=== PATIENT | male | born 1960 | race Caucasian/White ===

== ENCOUNTER 2018-04-12 05:46 | Day surgery (SDC) | payer BC, SELFPAY ==
--- NOTE | 2018-04-11 | COLBX_PTH ---
PATIENT: JAQUELINE PEREYRA LOC: EN U#:[id number] AGE/SX: 57/M ROOM: RE04/12/[address]: Dr. Sahil Douglass MD : 1960 BED: DIS: 04/12/2018 SPEC #: [id number] RECD: 04/12/18 07:56 STATUS: OZZIE SHERLEY #: [id number] MONIK: 04/11/18 00:[address]: Sahil Douglass DEPT: SURGICAL PATHOLOGY RECD BY: Bertin Gonzales ENTERED: 04/12/18 08:16 SP TYPE: COLON BX SYD DR: Gab Corbett, CIGARETTE VENDOR-C Tissues: A - Sigmoid colon biopsy B - Ascending colon C - COLON BIOPSY D - Sigmoid colon biopsy Procedures: Surgery Specimen Level IV HEADER OPERATION: Colonoscopy with polypectomy PRE-OP DIAGNOSIS: History of polyps TISSUE SUBMITTED: A ? Polyps sigmoid colon, B ? Ascending colon polyp, C ? Hepatic flexure polyp, D ? Sigmoid polyp MICROSCOPIC DIAGNOSIS A. Polyp, sigmoid colon, polypectomy: Tubular adenoma. B. Ascending colon polyp, polypectomy: Fragments of fecal material. See comment. C. Hepatic flexure polyp, polypectomy: Fragments of tubular adenoma. Fragments of fecal material. D. Sigmoid colon polyp, polypectomy: Tubular adenoma. SJ:lorraine 04/13/18 COMMENT B. Colonic mucosal tissue is not identified in the submitted specimen. MICROSCOPIC DESCRIPTION Slides are reviewed. GROSS DESCRIPTION A - Received in fixative is one container labeled with the patient's name and designated sigmoid colon polyps. The specimen consists of multiple irregular fragments of light castillo soft tissue that in aggregate measure 0.5 x 0.3 x 0.1 cm. The specimen is totally submitted in one cassette. B - Received in fixative is one container labeled with the patient's name and designated ascending colon polyp. The specimen consists of multiple irregular fragments of castillo soft tissue mixed with fecal material that in aggregate measure 2.5 x 1 x 0.1 cm. The specimen is totally submitted in one cassette. The specimen predominantly consists of fecal material. C - Received in fixative is one container labeled with the patient's name and designated hepatic flexure polyp. The specimen consists of multiple irregular fragments of castillo soft tissue mixed with fecal material that in aggregate measure 2 x 1 x 0.1 cm. The specimen is totally submitted in one cassette. D - Received in fixative is one container labeled with the patient's name and designated sigmoid polyp. The specimen consists of one irregular fragment of light castillo soft tissue that measures 0.3 x 0.3 x 0.1 cm. The specimen is totally submitted in one cassette. / SJ:rg 04/12/18 TC:5 CPT: 46439 x4
[2018-04-12 06:07] VITALS: BP 111/81; PULSE 90; RESP 16; O2SAT 95
--- NOTE | 2018-04-12 07:01 | PCM.OPRPT ---
Problem List (1) Personal history of colonic polyps Status: Acute Report of Operation Date of Procedure: 04/12/18 Pre-Operative Diagnosis: Personal history of colon polyps Post-Operative Diagnosis: Pancolonic diverticulosis. Sessile polyp of the ascending colon. Sessile polyp of the hepatic flexure. Sessile polyps of the mid and distal sigmoid ?3 Surgery/Procedure Performed:: Colonoscopy with cold forcep biopsy. Colonoscopy with hot snare polypectomy. Colonoscopy with cold snare polypectomy. Description of Surgical Findings:: Timeout and informed consent was obtained. 57-year-old gentleman was taken to the endoscopy suite. He was placed in a left lateral decubitus position. Throughout the procedure total 100 g term on 3.5 mg of Versed were given as intravenous sedation. Digital rectal exam performed. Normal anal tone. No mass lesions. 1+ smooth prostate. The scope was advanced into the rectum and then advanced in the sigmoid and what was felt to be the mid sigmoid 1 6 mm polyp 1 finally the polyp was encountered. Photographs were obtained. Hot snare cautery was used to resect and retrieved. There was extensive diverticulosis. The scope was advanced through the sigmoid transverse colon to the cecum. Bowel prep was fair. There still liquid stool with some chunks throughout the colon. The cecum ileocecal valve however was nicely achieved. The scope was withdrawn and there was a very sessile 6 Quinn polyp of the ascending colon. Photographs were obtained a cold snare was used to resect and retrieved. Because of the thinness I placed a hemostatic clip at this location. The scope was further withdrawn and again at the hepatic flexure was felt to be a 5 mm polyp. I used a hot snare to resect this then cold forceps to assure sampling of the area. Hemostasis was intact. There was pancolonic diverticulosis. The scope was advanced to the transverse colon and descending colon without additional finding. The scope was withdrawn to the sigmoid were an additional third polyp was identified down the more distal sigmoid. This also was resected and retrieved with hot snare cautery. Hemostasis was intact throughout. Bowel mucosa appeared to be intact. The scope was retroflexed within the rectum anorectal verge inspected this was not remarkable. Excess fluid and air was aspirated free the procedure was completed with the patient tolerating it well. Impression Pancolonic diverticulosis with concentrated diverticular disease of the sigmoid and descending colon Sessile polyp of the ascending colon and hepatic flexure and mid sigmoid x 2 and distal sigmoid ?1 The patient will be notified of pathology results as they become available. Based upon pathology will recommend follow-up colonoscopy at 1 year due to the multitude of polyps. This colonoscopy was October 10, 2014. The patient also additionally scheduled for future ventral incisional hernia repair. Medications were given at 0630. Scope was inserted 0633. The cecum was reached at 0639. The procedure was completed at 0656. Cc: Dr. Caesar Alicea and jossie Douglass M.D., F.A.C.S. Type of Anesthesia:: IV Sedation
[2018-04-12 07:05] VITALS: BP 109/80; BP 111/81; PULSE 89; RESP 16; TEMP 36.6; O2SAT 93
[2018-04-12 07:10] VITALS: BP 111/81; BP 115/90; PULSE 81; RESP 16; O2SAT 93
[2018-04-12 07:15] VITALS: BP 111/81; BP 113/86; PULSE 82; RESP 16; O2SAT 92
[2018-04-12 07:20] VITALS: BP 109/85; BP 111/81; PULSE 85; RESP 16; TEMP 36.6; O2SAT 94
[2018-04-12 08:08] VITALS: BP 111/81
== END 2018-04-12 08:10 | disposition home or self-care (01) ==
LOC: EN 05:47 → AC 05:49
PROVIDERS: Family Provider Nurse Practitioner Family; PCP Nurse Practitioner Family; Visit Provider Surgery
PROC: 0DJD8ZZ Inspection of Lower Intestinal Tract, Via Natural or Artificial Opening Endoscopic (ICD-10-PCS; CPT 45378; principal; 2018-04-12 06:25)
DX: D12.3 Benign neoplasm of transverse colon (principal); D12.5 Benign neoplasm of sigmoid colon; K63.5 Polyp of colon; K57.30 Diverticulosis of large intestine without perforation or abscess without bleeding; Z86.010 Personal history of colon polyps; K43.2 Incisional hernia without obstruction or gangrene; E03.9 Hypothyroidism, unspecified; K21.9 Gastro-esophageal reflux disease without esophagitis; E78.5 Hyperlipidemia, unspecified; C62.90 Malignant neoplasm of unspecified testis, unspecified whether descended or undescended; C62.12 Malignant neoplasm of descended left testis; Z86.711 Personal history of pulmonary embolism; Z85.820 Personal history of malignant melanoma of skin; Z87.891 Personal history of nicotine dependence; Z79.899 Other long term (current) drug therapy
CPT/HCPCS: 45380; 45385; 88305; J7120; A4216

== ENCOUNTER 2018-04-20 12:33 | Inpatient (IN) | payer BC, SELFPAY ==
[2018-04-20] VITALS (11 sets, daily range): BP systolic 125–147; BP diastolic 83–98; PULSE 61–89; RESP 12–18; TEMP 36.2–37.1; O2SAT 92–100; BMI 33.7
[2018-04-20 08:33] LABS: International Normalized Ratio 0.9; Prothrombin Time (Protime)PT. 12.5 SECONDS (11.7-14.9)
[2018-04-20 08:34] LABS: Partial Thromboplast Time 35.4 Seconds (24.1-36.2)
--- NOTE | 2018-04-20 09:35 | HERN_PTH ---
PATIENT: JAQUELINE PEREYRA LOC: MS3 U#:[id number] AGE/SX: 57/M ROOM: MS311 RE04/20/[address]: Dr. Sahil Douglass MD : 1960 BED: 1 DIS: 04/24/2018 SPEC #: [id number] RECD: 04/20/18 14:17 STATUS: OZZIE SHERLEY #: [id number] MONIK: 04/20/18 09:[address]: Sahil Douglass DEPT: SURGICAL PATHOLOGY RECD BY: Gab Mendiola ENTERED: 04/20/18 14:51 SP TYPE: Hernia OTHR DR: Gab Corbett, REAL ESTATE LEGAL ASSISTANT-C Tissues: HERNIA Procedures: Surgery Specimen Level II HEADER OPERATION: Open and laparoscopic ventral incisional hernia repair PRE-OP DIAGNOSIS: Incisional hernia without obstruction or gangrene TISSUE SUBMITTED: Hernia sac MICROSCOPIC DIAGNOSIS Hernia sac, herniorrhaphy: Fibrosis and focal chronic inflammation. AM:lorraine 04/28/18 MICROSCOPIC DESCRIPTION Slides are reviewed. GROSS DESCRIPTION Received in fixative is one container labeled with the patient's name and designated hernia sac. The specimen consists of three irregular fragments of reddish-castillo soft tissue that in aggregate measure 3 x 3 x 1 cm. Serial sections do not reveal mass lesions. Defensive Driving Instructor sections are submitted in one cassette. / AM:lorraine 04/20/18 TC:5 CPT: 02333
[2018-04-20] MEDS: Cefazolin 2 GM in 0.9% Normal Saline 100 ML IV (09:55)
--- NOTE | 2018-04-20 10:08 | PCM.DC.GS ---
Discharge Diet: Light diet - advance as tolerated - if you have questions about your diet instructions, please talk to you doctor. Discharge Activity: May Not Drive - for 1 week or while taking narcotic pain medicine. May shower in (days): 1 Lifting Restrictions: 10 pounds Call your doctor if your incision/area has: Continuous Slow Oozing, Sudden Increased Bleeding, Increased Pain/ Swelling, Increased Redness, Foul Smelling Discharge Call your doctor if you observe: Fever of 101 or Higher Suture Line Care: Avoid Pulling/Pushing, Avoid Pinching/Bending Additional Dressing/Incision Instructions:: Change or remove dressing in 4 days. Leave steri-strips in place for 1 week. Allergies/Adverse Reactions: Allergies hydrocodone [From Vicodin] Adverse Reaction (Verified 04/13/18 09:30) Nausea/Vom/Diarrhea TAPE Adverse Reaction (Uncoded 04/13/18 09:30) Unknown Medications to take at Discharge Ascorbic Acid [Vitamin C] 1,000 mg PO DAILY 11/03/16 Atorvastatin Calcium [Lipitor] 40 mg PO QHS 11/03/16 Fenofibrate [Lofibra] 160 mg PO DAILY 11/03/16 Fexofenadine/Pseudoephedrine [Trixie-D 12 Hour Tablet] 1 ea PO DAILY 11/03/16 Levothyroxine [Synthroid] 25 mcg PO DAILY 11/03/16 [place]-3 Fatty Acids [Fish Oil] 1,200 mg PO BID 11/03/16 Omeprazole [Prilosec] 40 mg PO DAILY 11/03/16 Multivitamin [Multiple Vitamins] 1 ea PO DAILY 11/22/16 Acetaminophen [Tylenol Tablet] 650 mg PO Q6H PRN PRN tab 04/26/17 fluticasone 50 mcg/actuation nasal spray,suspension 2 spray INTRANASAL QDAY 03/23/18 Primary Care Physician: Gab Corbett, JEN-C [Primary Care Provider] - Please Follow Up With: Sahil Douglass MD - [phone] When: Call to make an appointment to be seen in about 10 days.
[2018-04-20] MEDS: Bupivacaine Mpf 0.5% 30 ML VIAL (10:17)
[2018-04-20] MEDS: BUPIVACAINE LIPOSOME/PF 20 ML VIAL OPERA.SITE (12:21)
--- NOTE | 2018-04-20 12:33 | DT_ITS ---
This patient was seen during an EMR downtime April 23, 2018 - April 30, 2018. This patient may have a combination of paper and electronic documentation or all paper documentation. All documentation is viewable within the e-chart portion of [facility] for each patient visit.
--- NOTE | 2018-04-20 12:39 | PCM.OPRPT ---
Problem List (1) Ventral incisional hernia Status: Acute Report of Operation Date of Procedure: 04/20/18 Pre-Operative Diagnosis: Complex multi-defect ventral incisional hernia Post-Operative Diagnosis: Same with extensive intra-abdominal and small bowel adhesions Surgery/Procedure Performed:: Hybrid open and laparoscopic ventral incisional herniorrhaphy with extensive lysis of small bowel adhesions Description of Surgical Findings:: Out and informed consent was obtained. 57-year-old gentleman was taken out from.. He underwent general endotracheal intubation anesthesia. The abdomen was sterilely prepped draped. Ioban drape was used to help solidify dressings. He received 2 g of Ancef intravenously. 0.5% Marcaine was used as local anesthetic. Throughout the procedure total 30 cc was used. Later a 20 cc vial of Exparel was diluted to 100 cc utilizing saline and this was utilized to perform a tap block for the patient laparoscopically. A vertical incision was made at the site of the palpable defect superior the umbilicus sharp dissection carried down to Morse tissue the hernial defect identified it was incised vertically there became evidence that the entire midline fascia appeared to be disrupted with multiple defects unfortunately there were dense adhesions at this particular location of omentum but then extraordinarily tight adhesions of small bowel from the mid abdomen inferiorly. I was able to bluntly dissect the omentum free get to the left upper quadrant and then by palpation placed a 5 mm trocar. I placed in his son at the supraumbilical area. I then insufflated the abdomen identifying the extensive intra-abdominal adhesions. I was able to place a foraminal port in the left midabdomen and then over 1 hour of laparoscopic lysis of adhesions was pursued. The omentum had to be dissected free from the anterior abdominal wall in the mid abdomen and superiorly. I did this all the way up to the superior aspect of the incision and slightly mobilized the also form ligament. Unfortunately from the mid abdomen distally there were absolutely dense flat lesions of tediously and carefully using sharp laparoscopic dissection I freed this bowel. There was one area that looked like it might of been close I marked it with a Hemoclip when I was done lysing I then lengthen the midline incision just enough to examine that bowel externally and I further did some lysis of adhesions and an open technique freeing the small bowel to fully inspect that there was absolutely no evidence of any bowel injury. The bowel was placed back within the abdomen. I doubt successfully lysed all of the adhesions off the anterior abdominal wall. The midline fascia then was approximated with a running 0 PDS in a Teague catheter was replaced. I selected a ventral light ST mesh reference #[id number]. Expiry date 04/16/2018. Lot number [id number]. Today is April 20, 2018. We had the mesh open I was aware of the expiry date and I felt that 3 days over the expiry date did not warrant utilization of a completely separate piece of mesh. I used 2-0 Prolene at 4 corner sutures. The mesh was placed in through the assigned. It was unfurled. Using 11 blade and stab incision was used a grainy needle to ku through the mesh up to the abdominal wall very nice positioning was achieved. I secured the 2-0 Prolene sutures. I then utilized to secure strap devices one was a lot number [id number] with an expiry date of 10/09/2019 the other was lot number [id number] with the same expiry date. Excellent securement positioning of the mesh was achieved. Very pleased with that positioning. I then used saline to lubricate the mesh to activate the nonadherent surface. Then under labs Visualization I utilized the diluted Exparel and performed a tap block on her left scopic visualization and injected local essentially circumferentially around the entire portion of mesh. Finally the bowel was again inspected was noted to be hemostatic the greater omentum was placed as far down the abdomen is possible to cover as much of the bowel is possible. Trochars removed under visualization. The abdomen was allowed to deflate of CO2. Skin edges approximated were indicated with interrupted or running septic or 4-0 Monocryl. Steri-Strips Telfa and OpSite dressings were applied. Sponge and instrument and needle counts were reported to the surgeon to be correct. Blood loss was quite minimal. There were no apparent complications. He tolerated the procedure well. Specimens fragments of hernia sac. Drains none blood loss minimal Sahil Douglass M.D., F.A.C.S. Type of Anesthesia:: General Anesthesiologist: Bubba Allison
[2018-04-20] MEDS: Lactated Ringers 1,000 ML 75 ML IV (15:28)
[2018-04-20] MEDS: Morphine 2 MG/ML Syringe IV ×4 (15:28→22:10)
--- NOTE | 2018-04-20 16:54 | PCM.PN.BLA ---
Progress Note Sore but otherwise well Has not voided VS stable R.Cebul
[2018-04-20] MEDS: Ibuprofen 600 MG Tablet PO (17:21)
[2018-04-20] MEDS: Atorvastatin Calcium 40 MG Tablet PO (22:10)
[2018-04-21 01:32] VITALS: BP 137/91; PULSE 89; RESP 18; TEMP 36.7; O2SAT 97
[2018-04-21] MEDS: Morphine 2 MG/ML Syringe IV ×2 (02:18→08:33)
[2018-04-21] MEDS: Lactated Ringers 1,000 ML 75 ML IV (04:38)
[2018-04-21] MEDS: Ibuprofen 600 MG Tablet PO ×3 (04:40→18:29)
[2018-04-21] MEDS: Levothyroxine 25 MCG TABLET PO (05:59)
[2018-04-21] MEDS: Enoxaparin 40 MG/0.4 ML Syringe SC (05:59)
--- NOTE | 2018-04-21 06:09 | PCM.PN.SRG ---
Patient Problems: Active and Suspected Problems (Last Reviewed 03/24/18 @ 07:13 by Dolores Amaya) Ventral incisional hernia (Acute) Subjective: Pt better than last night. Still quite sore. No flatus. Minimal ambulation last night - Physical Exam General: Alert, Oriented x3, Cooperative, No apparent distress Lungs: Clear to auscultation Abdomen: Bowel Sounds Present, Soft, Distended Vital Signs Temp Pulse Resp BP Pulse Ox 98.1 F 89 18 137/91 H 97 04/21/18 01:32 04/21/18 01:32 04/21/18 01:32 04/21/18 01:32 04/21/18 01:32 Oxygen Flow Rate (L/min) 1 Oxygen Delivery Method Nasal Cannula Weight: 235 lb 7.259 oz Body Mass Index (BMI) 33.7 Intake and Output for Last 24 Hours 04/19/18 04/20/18 04/21/18 23:59 23:59 23:59 Intake Total 2559 / 2559 1909 / 1909 Output Total 2049 / 2049 Balance 2559 / 2559 -140 / -140 Laboratory Tests Past 24 Hrs 04/20/18 08:10 PT 12.5 INR 0.9 APTT 35.4 Medical Necessity - Tobacco Use Smoking Status: Former smoker Assessment/Plan All Active Problems (Last Reviewed 03/24/18 @ 07:13 by Dolores Amaya) Personal history of colonic polyps (Acute) Ventral incisional hernia (Acute) Personal history of pulmonary embolism (Acute) Hypothyroid (Acute) GERD (gastroesophageal reflux disease) (Acute) Hyperlipidemia (Acute) History of melanoma (Acute) Seminoma (Acute) Pulmonary embolism (Acute) Pt with lovenox and SCDs but with H/o DVT and PE he needs to mobilize matthias and he is encouraged to do so. Intolerant to norco Will try tramadol Advance diet as tolerated Doubt he will meet criteria for discharge today
[2018-04-21] MEDS: 0.9% NaCl Peripheral Flush Adult/Peds IV (06:32)
[2018-04-21 06:47] LABS: Absolute Lymphocyte Count 0.67 X10^3/ul (0.83-4.51); Absolute Neutrophil Count 6.8 X10^3/uL (2.0-7.7); Basophil# 0.01 X10^3/uL; Basophil% 0.1 % (0-1); Eosinophil# 0.12 X10^3/uL; Eosinophils% 1.5 % (0-5); Hematocrit 39.9 % (40-54); Hemoglobin 12.8 g/dl (13.0-16.5); Lymphocyte # 0.67 X10^3/ul (4.0); Lymphocyte % 8.3 % (19-41); Mean Corp Hgb Conc 32.1 g/gl (32-36); Mean Corpuscular Hgb 29.8 pg (27.0-32.0); Mean Platelet Vol. 10.8 fl (6.2-12.0); Monocyte# 0.53 X10^3/uL; Monocyte% 6.5 % (0-10); Neutrophil # 6.78 X10^3/uL (2.7-7.7); Neutrophil % 83.5 % (47-70); Platelet Count 156 K/mm3 (150-450); RBC Distribution Width CV 13.2 % (11.6-14.6); RBC Distribution Width SD 44.1 fl (35.1-43.9); Red Blood Count 4.29 M/mm3 (4.6-6.2); White Blood Count 8.1 K/mm3 (4.4-11.0)
[2018-04-21 06:55] LABS: POSITIVE COUNT NO; POSITIVE DIFFERENTIAL NO; POSITIVE MORPHOLOGY NO
[2018-04-21 08:14] VITALS: BP 117/79; PULSE 92; RESP 16; TEMP 37.1; O2SAT 95
[2018-04-21] MEDS: Fenofibrate 145 MG Tablet PO (08:34)
[2018-04-21] MEDS: Fluticasone 0.05% 1 SPRAY NASAL.SRY 2 SPRAY NASAL (10:37)
[2018-04-21] MEDS: Loratadine 10 MG Tablet PO (10:38)
[2018-04-21] MEDS: Pantoprazole Sodium 40 MG Tablet PO (10:38)
--- NOTE | 2018-04-21 11:19 | CASEMGMT ---
Face to Face with patient for initial transition planning/care coordination assessment. LUCIO HARRIS introduced self and role at [facility], pt voices understanding and consents to assessment at this time. Pt is sitting up in bed in no distress at this time. Pt is A/O x4 at this time and answers all questions appropriately at this time. Care providers, pharmacy, and demographics verified. See attached link. Pt voices no further concerns/needs at this time. Advised pt to ask for CM if any further questions/concerns/needs arise, voices understanding. PLAN: [place] LUCIO HARRIS
[2018-04-21 13:44] VITALS: BP 118/86; PULSE 101; RESP 18; TEMP 36.9; O2SAT 94
[2018-04-21] MEDS: Acetaminophen 325 MG Tablet 650 MG PO ×2 (13:57→20:10)
--- NOTE | 2018-04-21 14:48 | NURSING ---
PT HAS BEEN AMBULATING APPROX EVERY HOUR IN HALLS WITH SPOUSE. PT UTILIZING I.S. INSTRUCTED.
[2018-04-21] MEDS: Polyethylene Glycol 3350 17 GM PACKET PO (17:26)
[2018-04-21] MEDS: traMADol 50 MG Tablet 100 MG PO (18:29)
[2018-04-21 20:15] VITALS: BP 150/91; PULSE 96; RESP 16; TEMP 37.2; O2SAT 95
[2018-04-21] MEDS: Atorvastatin Calcium 40 MG Tablet PO (21:58)
[2018-04-22] VITALS (8 sets, daily range): BP systolic 116–147; BP diastolic 77–102; PULSE 85–106; RESP 16–18; TEMP 36.4–37.1; O2SAT 88–95
[2018-04-22] MEDS: traMADol 50 MG Tablet 100 MG PO ×3 (00:28→21:18)
[2018-04-22] MEDS: Levothyroxine 25 MCG TABLET PO (05:53)
[2018-04-22] MEDS: Enoxaparin 40 MG/0.4 ML Syringe SC (05:53)
--- NOTE | 2018-04-22 08:27 | NURSING ---
o2 sats were 89% on RA. PLACED ON 2L O2, WILL RECHECK SATS MOMENTARILY
[2018-04-22] MEDS: Acetaminophen 325 MG Tablet 650 MG PO ×3 (08:42→21:21)
[2018-04-22] MEDS: Fenofibrate 145 MG Tablet PO (08:42)
[2018-04-22] MEDS: Pantoprazole Sodium 40 MG Tablet PO (10:12)
[2018-04-22] MEDS: Loratadine 10 MG Tablet PO (10:12)
[2018-04-22] MEDS: Fluticasone 0.05% 1 SPRAY NASAL.SRY 2 SPRAY NASAL (10:12)
[2018-04-22] MEDS: Polyethylene Glycol 3350 17 GM PACKET PO (10:12)
[2018-04-22] MEDS: 0.9% NaCl Peripheral Flush Adult/Peds IV ×2 (10:12→14:47)
[2018-04-22] MEDS: Morphine 2 MG/ML Syringe IV ×2 (10:12→14:47)
--- NOTE | 2018-04-22 10:42 | PCM.PN.SRG ---
Patient Problems: Active and Suspected Problems (Last Reviewed 03/24/18 @ 07:13 by Dolores Amaya) Ventral incisional hernia (Acute) Subjective: Pain is controlled better. Still not passing any flatus. Only burping. Objective: His dressings are dry there is no signs of bleeding or cellulitis - Physical Exam Vital Signs Temp Pulse Resp BP Pulse Ox 98.6 F 97 16 147/91 H 94 04/22/18 09:58 04/22/18 09:58 04/22/18 09:58 04/22/18 09:58 04/22/18 09:58 Oxygen Flow Rate (L/min) 2 Oxygen Delivery Method Nasal Cannula Weight: 235 lb 7.259 oz Body Mass Index (BMI) 33.7 Intake and Output for Last 24 Hours 04/20/18 04/21/18 04/22/18 23:59 23:59 23:59 Intake Total 2559 / 2559 2760 / 2760 1779 / 1779 Output Total 2825 / 2825 Balance 2559 / 2559 -65 / -65 1779 / 1779 Medical Necessity - Tobacco Use Smoking Status: Former smoker Assessment/Plan All Active Problems (Last Reviewed 03/24/18 @ 07:13 by Dolores Amaya) Personal history of colonic polyps (Acute) Ventral incisional hernia (Acute) Personal history of pulmonary embolism (Acute) Hypothyroid (Acute) GERD (gastroesophageal reflux disease) (Acute) Hyperlipidemia (Acute) History of melanoma (Acute) Seminoma (Acute) Pulmonary embolism (Acute) Will add gum and ice chips. He can have a little bit of carbonated beverages but not much. He is to continue to do his walking in the hallways. Hopefully will be ready to be discharged by Monday.
[2018-04-22] MEDS: Lactated Ringers 1,000 ML 30 ML IV (11:28)
--- NOTE | 2018-04-22 14:38 | NURSING ---
PT PASSED SMALL AMT FLATUS.
[2018-04-22] MEDS: Atorvastatin Calcium 40 MG Tablet PO (21:12)
[2018-04-23] MEDS: Ondansetron 4 MG/2 ML Vial IV (00:07)
[2018-04-23] MEDS: 0.9% NaCl Peripheral Flush Adult/Peds IV (00:07)
[2018-04-23 02:40] VITALS: BP 140/102; PULSE 109; RESP 18; TEMP 36.8; O2SAT 90
--- NOTE | 2018-04-23 08:00 | RAD_ITS ---
STUDY: X-RAY - ABDOMEN/PELVIS REASON FOR EXAM: Male, 57 years old. NG tube placement TECHNIQUE: Single AP view of the abdomen / pelvis. COMPARISON: None. FINDINGS: NG tube tip in the distal stomach. There is an unremarkable bowel gas pattern. There is no demonstrated free abdominal air. The visualized liver, spleen and kidneys are grossly normal in size and morphology. Normal soft tissue structures. There are diffuse degenerative changes of the visualized lumbar spine. RAD/Abdomen Single View (Portable) IMPRESSION: No acute findings, NG tube tip in the distal stomach Electronically Signed: Don Moore MD at 14:37 EDT , Service support ,
[2018-04-26 11:45] LABS: Glucose 101 mg/dL (74-106)
[2018-04-26 11:46] LABS: Anion Gap 10 (5-15); BUN 7 mg/dL (7-18); BUN/Creat Ratio 8.1 RATIO (10-20); Calcium,Total 8.9 mg/dL (8.5-10.1); Chloride 101 mmol/L (98-107); Creatinine, Serum 0.86 mg/dL (0.70-1.30); EST Glomerular Filtration Rate 98 mL/min (>60); Est Glom Filt Rate - Afr Amer 119 mL/min (>60); Estimated Creatinine Clearance 100.21 ml/min; Potassium 3.5 mmol/L (3.5-5.1); Sodium Level 139 mmol/L (136-145)
[2018-04-26 16:53] LABS: Absolute Lymphocyte Count 0.77 X10^3/ul (0.83-4.51); Absolute Neutrophil Count 4.6 X10^3/uL (2.0-7.7); Basophil% 0.2 % (0-1); Eosinophils% 2.1 % (0-5); Hematocrit 38.5 % (40-54); Hemoglobin 12.4 g/dl (13.0-16.5); Lymphocyte # 0.77 X10^3/ul (4.0); Lymphocyte % 12.6 % (19-41); Mean Corp Hgb Conc 32.2 g/gl (32-36); Mean Corpuscular Hgb 30.7 pg (27.0-32.0); Mean Corpuscular Volume 95.3 fL (80-94); Mean Platelet Vol. 12.1 fl (6.2-12.0); Monocyte# 0.58 X10^3/uL; Monocyte% 9.5 % (0-10); Neutrophil % 75.6 % (47-70); POSITIVE COUNT NO; POSITIVE DIFFERENTIAL NO; POSITIVE MORPHOLOGY NO; Platelet Count 162 K/mm3 (150-450); RBC Distribution Width CV 12.8 % (11.6-14.6); RBC Distribution Width SD 43.5 fl (35.1-43.9); Red Blood Count 4.04 M/mm3 (4.6-6.2); White Blood Count 6.1 K/mm3 (4.4-11.0)
[2018-04-26 16:54] LABS: Basophil# 0.01 X10^3/uL; Eosinophil# 0.13 X10^3/uL
--- NOTE | 2018-05-07 13:57 | PCM.DC.SUM ---
Discharge Date and Diagnosis Date of Admission: 04/20/18 Date of Discharge: 04/24/18 - Primary Discharge Diagnosis Ventral incisional hernia repair - Secondary Discharge Diagnosis Chronic Problems (Last Reviewed 03/24/18 @ 07:13 by Dolores Amaya) Dyslipidemia (Chronic) Testicular cancer (Chronic) Hospital Course and Treatment Operations: herniorrhaphy - Laparoscopic converted to open ventral incisional hernia repair with mesh and lysis of adhesions Summary of Care Provided: The patient is a 57 year old M who presents for an elective ventral incisional hernia repair. Dr. Douglass performed a laparoscopic converted to open ventral incisional hernia repair with lysis of adhesions on 04/20/2018. Patient tolerated the procedure well. He developed an ileus during his hospitalization requiring NG tube placement. Positive flatus was noted. NG tube was removed on 04/23. Upon discharge, patient tolerated a diet well. Positive flatus. Minimal amount of abdominal pain/discomfort. Negative fever. Negative nausea, vomiting. Positive bowel movement. Discharge Diet: Light diet - advance as tolerated - if you have questions about your diet instructions, please talk to you doctor. Discharge Activity: May Not Drive - for 1 week or while taking narcotic pain medicine. May shower in (days): 1 Call your doctor if your incision/area has: Continuous Slow Oozing, Sudden Increased Bleeding, Increased Pain/ Swelling, Increased Redness, Foul Smelling Discharge Call your doctor if you observe: Fever of 101 or Higher Suture Line Care: Avoid Pulling/Pushing, Avoid Pinching/Bending Additional Dressing/Incision Instructions:: Change or remove dressing in 4 days. Leave steri-strips in place for 1 week. Home Medications: Medications to take at Discharge Ascorbic Acid [Vitamin C] 1,000 mg PO DAILY 11/03/16 Atorvastatin Calcium [Lipitor] 40 mg PO QHS 11/03/16 Fenofibrate [Lofibra] 160 mg PO DAILY 11/03/16 Fexofenadine/Pseudoephedrine [Trixie-D 12 Hour Tablet] 1 ea PO DAILY 11/03/16 Levothyroxine [Synthroid] 25 mcg PO DAILY 11/03/16 [place]-3 Fatty Acids [Fish Oil] 1,200 mg PO BID 11/03/16 Omeprazole [Prilosec] 40 mg PO DAILY 11/03/16 Multivitamin [Multiple Vitamins] 1 ea PO DAILY 11/22/16 Acetaminophen [Tylenol Tablet] 650 mg PO Q6H PRN PRN tab 04/26/17 fluticasone 50 mcg/actuation nasal spray,suspension 2 spray INTRANASAL QDAY 03/23/18 traMADol [Ultram] 100 mg PO Q6H PRN PRN 4 Days #15 tablet 04/21/18 Following Prescrptions Were Given to Patient: traMADol [Ultram] 100 mg PO Q6H PRN PRN 4 Days #15 tablet PRN Reason: Pain Primary Care Physician: Gab Corbett, HOME HEALTH REGISTERED NURSE-C [Primary Care Provider] - Please Follow Up With: Sahil Douglass MD - [phone] When: Call to make an appointment to be seen in about 10 days. Disposition: Home Minutes spent on discharge:: 20 Patient Condition:: Good Medical Necessity - Tobacco Use Smoking Status: Former smoker Meaningful Use Info Meaningful Use Diagnoses (Choose all that apply): None applicable Code Visit Inpatient E&M: 31218 Disch Hosp
--- NOTE | 2018-05-07 14:07 | DS.PCM_ITS ---
Discharge Date and Diagnosis Date of Admission: 04/20/18 Date of Discharge: 04/24/18 - Primary Discharge Diagnosis Ventral incisional hernia repair - Secondary Discharge Diagnosis Chronic Problems (Last Reviewed 03/24/18 @ 07:13 by Dolores Amaya) Dyslipidemia (Chronic) Testicular cancer (Chronic) Hospital Course and Treatment Operations: herniorrhaphy - Laparoscopic converted to open ventral incisional hernia repair with mesh and lysis of adhesions Summary of Care Provided: The patient is a 57 year old M who presents for an elective ventral incisional hernia repair. Dr. Douglass performed a laparoscopic converted to open ventral incisional hernia repair with lysis of adhesions on 04/20/2018. Patient tolerated the procedure well. He developed an ileus during his hospitalization requiring NG tube placement. Positive flatus was noted. NG tube was removed on 04/23. Upon discharge, patient tolerated a diet well. Positive flatus. Minimal amount of abdominal pain/discomfort. Negative fever. Negative nausea, vomiting. Positive bowel movement. Discharge Diet: Light diet - advance as tolerated - if you have questions about your diet instructions, please talk to you doctor. Discharge Activity: May Not Drive - for 1 week or while taking narcotic pain medicine. May shower in (days): 1 Call your doctor if your incision/area has: Continuous Slow Oozing, Sudden Increased Bleeding, Increased Pain/ Swelling, Increased Redness, Foul Smelling Discharge Call your doctor if you observe: Fever of 101 or Higher Suture Line Care: Avoid Pulling/Pushing, Avoid Pinching/Bending Additional Dressing/Incision Instructions:: Change or remove dressing in 4 days. Leave steri-strips in place for 1 week. Home Medications: Medications to take at Discharge Ascorbic Acid [Vitamin C] 1,000 mg PO DAILY 11/03/16 Atorvastatin Calcium [Lipitor] 40 mg PO QHS 11/03/16 Fenofibrate [Lofibra] 160 mg PO DAILY 11/03/16 Fexofenadine/Pseudoephedrine [Trixie-D 12 Hour Tablet] 1 ea PO DAILY 11/03/16 Levothyroxine [Synthroid] 25 mcg PO DAILY 11/03/16 [place]-3 Fatty Acids [Fish Oil] 1,200 mg PO BID 11/03/16 Omeprazole [Prilosec] 40 mg PO DAILY 11/03/16 Multivitamin [Multiple Vitamins] 1 ea PO DAILY 11/22/16 Acetaminophen [Tylenol Tablet] 650 mg PO Q6H PRN PRN tab 04/26/17 fluticasone 50 mcg/actuation nasal spray,suspension 2 spray INTRANASAL QDAY 03/07 traMADol [Ultram] 100 mg PO Q6H PRN PRN 4 Days #15 tablet 04/21/18 Following Prescrptions Were Given to Patient: traMADol [Ultram] 100 mg PO Q6H PRN PRN 4 Days #15 tablet PRN Reason: Pain Primary Care Physician: Gab Corbett, [employer] [Primary Care Provider] - Please Follow Up With: Sahil Douglass MD - [phone] When: Call to make an appointment to be seen in about 10 days. Disposition: Home Minutes spent on discharge:: 20 Patient Condition:: Good Medical Necessity - Tobacco Use Smoking Status: Former smoker Meaningful Use Info Meaningful Use Diagnoses (Choose all that apply): None applicable Code Visit Inpatient E&M: 89188 Disch Hosp
== END 2018-04-24 14:23 | disposition home or self-care (01) | DRG 336 ==
LOC: MS3 13:34
PROVIDERS: Anesthesiology; Admitting Provider Surgery; Family Provider Nurse Practitioner Family; PCP Nurse Practitioner Family; Visit Provider Surgery
PROC: 0WQF4ZZ Repair Abdominal Wall, Percutaneous Endoscopic Approach (ICD-10-PCS; principal; 2018-04-20 09:15)
DX: K43.2 Incisional hernia without obstruction or gangrene (principal); K56.7 Ileus, unspecified; K66.0 Peritoneal adhesions (postprocedural) (postinfection); E03.9 Hypothyroidism, unspecified; E78.5 Hyperlipidemia, unspecified; K21.9 Gastro-esophageal reflux disease without esophagitis; Z85.820 Personal history of malignant melanoma of skin; Z86.718 Personal history of other venous thrombosis and embolism; Z86.010 Personal history of colon polyps; Z86.711 Personal history of pulmonary embolism; Z87.891 Personal history of nicotine dependence; Z53.31 Laparoscopic surgical procedure converted to open procedure
CPT/HCPCS: 74018; 80048; 85025; 85610; 85730; 88302; J7030; J7120; A4216; C1781; J2405; J3490

== ENCOUNTER → 2019-08-27 07:09 | Outpatient (CLI) | payer BC, SELFPAY ==
--- NOTE | 2019-08-27 07:12 | CT_ITS ---
STUDY: CT ABDOMEN AND PELVIS WITH CONTRAST REASON FOR EXAM: Male, 58 years old. Left upper quadrant pain. Hypertension. Testicular cancer. Melanoma. RADIATION DOSAGE (If Supplied By Facility): CTDIvol = ( 19.40 ) mGy, DLP = ( 1633.57 ) mGycm TECHNIQUE: Transaxial images were obtained from the dome of the diaphragm to the symphysis pubis with oral contrast. IV/Oral Isovue 300 100 was administered. Sagittal and coronal images were reconstructed. Individualized dose optimization techniques were used for this CT. COMPARISON: April 25, 2017 . FINDINGS: The visualized lung bases are unremarkable. The visualized portions of the heart are within normal limits. There is hepatomegaly with diffuse hepatic enlargement. Normal gallbladder and extrahepatic biliary system. Normal spleen. Normal pancreas. Normal bilateral adrenal glands. Normal right kidney. Mild hydronephrosis of the left kidney. Normal visualized stomach. Normal small intestine. There are multiple colonic diverticula consistent with diverticulosis. The appendix is visualized and appears normal. There is diffuse atherosclerotic calcification of the abdominal aorta with elongation and tortuosity, but without a demonstrated aneurysm. Normal inferior vena cava. There are postoperative changes with surgical clips in the retroperitoneum. No new lymphadenopathy. Normal urinary bladder. There is no free fluid in the abdomen or pelvis. Postoperative changes of the abdominal wall. Status post left orchiectomy. There is degenerative change of the spine. There is grade 1 spondylolisthesis at L5-S1 with bilateral spondylolysis of L5. There is right hip replacement. CT/Abdomen/Pelvis WITH Contrast IMPRESSION: Mild left hydronephrosis. No stones are seen. There is postoperative change of the retroperitoneum. There is no new lymphadenopathy. Colonic diverticulosis. No obstruction or abscess. Hepatomegaly. No biliary dilatation. Electronically Signed: Yong Piper MD at 8:58 EDT , Service support ,
--- NOTE | 2019-08-27 07:13 | CT_ITS ---
STUDY: CT BRAIN WITHOUT CONTRAST REASON FOR EXAM: Male, 58 years old. Headache. Hypertension. RADIATION DOSAGE (If Supplied By Facility): CTDIvol = ( 44.99 ) mGy, DLP = ( 812.98 ) mGycm TECHNIQUE: Transaxial CT imaging of the brain was performed without administration of intravenous contrast material. Individualized dose optimization techniques were used for this CT. COMPARISON: No relevant priors. FINDINGS: Normal soft tissue structures. Normal calvarium. Normal size ventricles and extra-axial spaces for the patient's age. Normal white matter tracts of the cerebral hemispheres. Normal basal ganglia and thalami. Normal brainstem. Normal cerebellum. There is no intracranial hemorrhage. There are no findings of an acute ischemic infarction. Postoperative changes the paranasal sinuses. Nasal septum deviates to the right. CT/Brain/Head without Contrast IMPRESSION: Normal unenhanced CT scan of the brain. Electronically Signed: Yong Piper MD at 8:46 EDT , Service support ,
== END ==
PROVIDERS: Family Provider Nurse Practitioner Family; PCP Nurse Practitioner Family; Referring Provider Nurse Practitioner Family; Visit Provider Nurse Practitioner Family
DX: R10.12 Left upper quadrant pain (principal); I10 Essential (primary) hypertension; C77.3 Secondary and unspecified malignant neoplasm of axilla and upper limb lymph nodes; C62.92 Malignant neoplasm of left testis, unspecified whether descended or undescended; R51 Headache
CPT/HCPCS: 70450; 74177; Q9967

== ENCOUNTER 2019-10-22 08:44 | Day surgery (SDC) | payer BC, SELFPAY ==
[2018-04-20 15:20] VITALS: BMI 33.7
[2019-10-22] VITALS (8 sets, daily range): BP systolic 100–123; BP diastolic 64–102; PULSE 99–109; RESP 16; TEMP 36.3–36.6; O2SAT 36–98; BMI 35.6
[2019-10-22] MEDS: Lactated Ringers 1,000 ML 100 ML IV (09:08)
--- NOTE | 2019-10-22 09:45 | COLBX_PTH ---
PATIENT: JAQUELINE PEREYRA LOC: EN U#:[id number] AGE/SX: 59/M ROOM: RE10/22/[address]: Dr. Sahil Douglass MD : 1960 BED: DIS: 10/22/2019 SPEC #: [id number] RECD: 10/22/19 12:25 STATUS: OZZIE SHERLEY #: [id number] MONIK: 10/22/19 09:[address]: Sahil Douglass DEPT: SURGICAL PATHOLOGY RECD BY: Ned Aguilar ENTERED: 10/22/19 13:08 SP TYPE: COLON BX SYD DR: Gab Corbett, SENIOR SOFTWARE TEST ENGINEER-C Tissues: A - Transverse colon B - Sigmoid colon biopsy Procedures: Surgery Specimen Level IV HEADER OPERATION: Colonoscopy - open access (MOD) PRE-OP DIAGNOSIS: History polyps TISSUE SUBMITTED: A - Distal transverse polyp biopsy, B - Proximal sigmoid polyp biopsy MICROSCOPIC DIAGNOSIS A. Distal transverse colon polyp, biopsy: Fragments of colonic mucosa, no pathologic diagnosis. B. Proximal sigmoid polyp, biopsy: Tubular adenoma with focal high grade dysplasia. AUDREY:lorraine 10/23/19 COMMENT Case has been reviewed in consultation with Dr. Solis who concurs with the above diagnosis. IDC:AM MICROSCOPIC DESCRIPTION Slides are reviewed. GROSS DESCRIPTION A - Received in fixative is one container labeled with the patient's name and designated distal transverse polyp biopsy. The specimen consists of multiple irregular fragments of light castillo soft tissue that in aggregate measure 1 x 0.5 x 0.1 cm. The specimen is totally submitted in one cassette. B - Received in fixative is one container labeled with the patient's name and designated proximal sigmoid polyp biopsy. The specimen consists of one irregular fragment of light castillo soft tissue that measures 0.5 x 0.5 x 0.1 cm. The specimen is totally submitted in one cassette. / AUDREY:lorraine 10/22/19 TC:1 CPT: 33289 x2
--- NOTE | 2019-10-22 10:22 | PCM.HP.STD ---
Problem List (1) Personal history of colonic polyps Status: Acute History of Present Illness Date of Admission: 10/22/19 The patient is a 59 year old M personal history of colon polyps. He has had multiple polyps on his previous colonoscopy at about a year and a half ago. He denies abdominal pain. He does complain of right groin pain within the past week. He reminds me that I perform a complex ventral incisional hernia repair on him. He is wondering whether he could have a groin hernia. 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 Dyslipidemia (Chronic) E78.5 Testicular cancer (Chronic) C62.90 Pulmonary embolism (Acute) I26.99 Allergies hydrocodone [From Vicodin] Adverse Reaction (Verified 10/22/19 08:59) Nausea/Vom/Diarrhea TAPE Adverse Reaction (Uncoded 10/22/19 08:59) Unknown Home Medications: Ambulatory Orders Medication Instructions Recorded Ascorbic Acid [Vitamin C] 1,000 mg PO DAILY 11/03/16 Atorvastatin Calcium [Lipitor] 40 mg PO QHS 11/03/16 Fenofibrate [Lofibra] 160 mg PO DAILY 11/03/16 Fexofenadine/Pseudoephedrine 1 ea PO DAILY 11/03/16 [Trixie-D 12 Hour Tablet] Levothyroxine [Synthroid] 25 mcg PO DAILY 11/03/16 [place]-3 Fatty Acids [Fish Oil] 1,200 mg PO BID 11/03/16 Omeprazole [Prilosec] 40 mg PO DAILY 11/03/16 Multivitamin [Multiple Vitamins] 1 ea PO DAILY 11/22/16 Acetaminophen [Tylenol Tablet] 650 mg PO Q6H PRN PRN tab 04/26/17 fluticasone propionate 50 2 spray INTRANASAL QDAY 03/23/18 mcg/actuation nasal spray,suspension traMADol [Ultram] 100 mg PO Q6H PRN PRN 4 Days #15 04/21/18 tablet Amlodipine [Norvasc] 10 mg PO DAILY 10/16/19 Surgical History: Surgical History (Last Updated 05/14/18 @ 13:18 by Dolores Amaya) History of colonoscopy Z98.890 History of hip surgery Z98.890 History of melanoma excision Z98.890, Z85.820 History of orchiectomy Z90.79 S/P repair of ventral hernia Onset Date: ~04/2018 Z98.890, Z87.19 Surgical History: - Smoking Status: Former smoker Tobacco Use: Non-smoker - *Family History Paternal Family History: Family History (Last Reviewed 05/14/18 @ 13:17 by Dolores Amaya) Father Asthma Cancer Brother Hypertension CAD (coronary artery disease) History Items: No pertinent history Review of Systems Constitutional: Denies: Anorexia Cardiovascular: Denies: Chest Pain Respiratory: Denies: Cough Gastrointestinal: Denies: Abdominal Pain, Constipation Endocrine: Denies: Change in Body Habitus VTE Information - Inpt Only VTE Present on Admission: No - Physical Exam Vitals/I&O's: Vital Signs Temp Pulse Resp BP Pulse Ox 97.9 F 109 H 16 123/84 H 98 10/22/19 09:00 10/22/19 09:00 10/22/19 09:00 10/22/19 09:00 10/22/19 09:00 Oxygen Delivery Method Room Air Weight: 248 lb 10.903 oz Body Mass Index (BMI) 35.6 General: Alert, Oriented x3, Cooperative Oral: Moist Mucosa Neck: Supple Lungs: Clear to auscultation, Normal air movement Cardiovascular: Regular rate, Regular Rhythm Abdomen: Bowel Sounds Present, Soft, Non Tender Psych/Mental Status: Normal Affect - You exam, testicles very atrophic. Slight give right groin Current Medications Lactated Ringer's () 1,000 mls @ 100 mls/hr IV .Q10H GRACIELA Last Admin: 10/22/19 09:08 Dose: 100 mls/hr Documented by: Assessment/Plan All Active Problems (Last Reviewed 05/14/18 @ 13:17 by Dolores Amaya) Personal history of colonic polyps (Acute) Ventral incisional hernia (Acute) Personal history of pulmonary embolism (Acute) Hypothyroid (Acute) GERD (gastroesophageal reflux disease) (Acute) Hyperlipidemia (Acute) History of melanoma (Acute) Seminoma (Acute) Pulmonary embolism (Acute) No history of colon polyps. He presents via open access today. He wanted his right groin check. He may actually have a slight inguinal defect. I recommend to him a colonoscopy with possible biopsy or polypectomy is indicated. He is aware of the technique, benefit, risk and alternatives. If the patient's right groin pain persists he is instructed to follow through with a abdominal pelvic CT scan and then office follow-up. He has had a previous history of a complicated ventral incisional hernia repair. Sahil Douglass M.D., F.A.C.S.
--- NOTE | 2019-10-22 10:57 | OP.COLON_ITS ---
Patient Name: Eliceo Graham Procedure Date: 10/22/2019 10:32 AM Date of : 1960 Age: 59 Procedure: Colonoscopy Indications: High risk colon cancer surveillance: Personal history of colonic polyps Providers: Sahil Douglass MD Referring MD: Gab Corbett Medicines: Midazolam 3.5 mg IV, Meperidine 100 mg IV Patient Profile: Last Colonoscopy: within the past 3 years. Complications: No immediate complications. Procedure: Pre-Anesthesia Assessment: - Prior to the procedure, a History and Physical was performed, and patient medications and allergies were reviewed. The patient's tolerance of previous anesthesia was also reviewed. The risks and benefits of the procedure and the sedation options and risks were discussed with the patient. All questions were answered, and informed consent was obtained. Prior Anticoagulants: The patient has taken no previous anticoagulant or antiplatelet agents. ASA Grade Assessment: II - A patient with mild systemic disease. After reviewing the risks and benefits, the patient was deemed in satisfactory condition to undergo the procedure. After I obtained informed consent, the scope was passed under direct vision. Throughout the procedure, the patient's blood pressure, pulse, and oxygen saturations were monitored continuously. The Duodenoscope was introduced through the anus and advanced to the cecum, identified by appendiceal orifice and ileocecal valve. The colonoscopy was performed without difficulty. The patient tolerated the procedure well. The quality of the bowel preparation was adequate to identify polyps. The ileocecal valve and the appendiceal orifice were photographed. Moderate Sedation: Moderate (conscious) sedation was personally administered by the endoscopist. The following parameters were monitored: oxygen saturation, heart rate, blood pressure, and response to care. Total physician intraservice time was 15 minutes. Scope In: 10:38:17 AM Scope Withdrawal Time 0 hours 10 minutes 57 seconds Scope Out: 10:51:41 AM Total Procedure Duration Time 0 hours 13 minutes 24 seconds Findings: The perianal and digital rectal examinations were normal. A 6 mm polyp was found in the distal transverse colon. The polyp was sessile. The polyp was removed with a cold biopsy forceps. Resection and retrieval were complete. A 6 mm polyp was found in the proximal descending colon. The polyp was sessile. The polyp was removed with a cold biopsy forceps. Resection and retrieval were complete. Multiple diverticula were found in the sigmoid colon and descending colon. Impression: - One 6 mm polyp in the distal transverse colon, removed with a cold biopsy forceps. Resected and retrieved. - One 6 mm polyp in the proximal descending colon, removed with a cold biopsy forceps. Resected and retrieved. - Diverticulosis in the sigmoid colon and in the descending colon. Recommendation: - Discharge patient to home. - Resume previous diet. - Continue present medications. - Repeat colonoscopy in 5 years for surveillance based on pathology results. - Telephone my office for pathology results in 1 week. Procedure Code(s): --- Professional --- 33514, Colonoscopy, flexible; with biopsy, single or multiple 96654, 59, Moderate sedation services provided by the same physician or other qualified health healthcare educator performing the diagnostic or therapeutic service that the sedation supports, requiring the presence of an independent trained observer to assist in the monitoring of the patient's level of consciousness and physiological status; initial 15 minutes of intraservice time, patient age 5 years or older Diagnosis Code(s): --- Professional --- Z86.010, Personal history of colonic polyps D12.3, Benign neoplasm of transverse colon (hepatic flexure or splenic flexure) D12.4, Benign neoplasm of descending colon K57.30, Diverticulosis of large intestine without perforation or abscess without bleeding CPT copyright 2017 [employer]. All rights reserved. The codes documented in this report are preliminary and upon epic willow specialist review may be revised to meet current compliance requirements. Sahil Douglass MD 10/22/2019 10:57:13 AM This report has been signed electronically. Number of Addenda: 0 Note Initiated On: 10/22/2019 10:32 AM
== END 2019-10-22 11:34 | disposition home or self-care (01) ==
LOC: EN 08:45 → AC 08:46
PROVIDERS: Family Provider Nurse Practitioner Family; PCP Nurse Practitioner Family; Referring Provider Nurse Practitioner Family; Visit Provider Surgery
PROC: 0DJD8ZZ Inspection of Lower Intestinal Tract, Via Natural or Artificial Opening Endoscopic (ICD-10-PCS; CPT 45378; principal; 2019-10-22 09:40)
DX: D12.5 Benign neoplasm of sigmoid colon (principal); K63.5 Polyp of colon; K57.30 Diverticulosis of large intestine without perforation or abscess without bleeding; Z86.010 Personal history of colon polyps; E78.5 Hyperlipidemia, unspecified; E03.9 Hypothyroidism, unspecified; K21.9 Gastro-esophageal reflux disease without esophagitis; K43.2 Incisional hernia without obstruction or gangrene; Z85.47 Personal history of malignant neoplasm of testis; Z85.820 Personal history of malignant melanoma of skin; Z86.711 Personal history of pulmonary embolism; Z79.899 Other long term (current) drug therapy; Z87.891 Personal history of nicotine dependence
CPT/HCPCS: 45380; 88305; 99152; 99153; J7120

== ENCOUNTER → 2020-06-03 12:28 | Outpatient (CLI) | payer BC, SELFPAY ==
[2019-10-22 09:00] VITALS: BMI 35.6
== END ==
PROVIDERS: PCP Nurse Practitioner Family; Visit Provider Nurse Practitioner Family
DX: R09.89 Other specified symptoms and signs involving the circulatory and respiratory systems (principal); R68.89 Other general symptoms and signs
CPT/HCPCS: 87635; G2023; U0003

== ENCOUNTER 2021-01-29 08:49 | Day surgery (SDC) | payer BC, SELFPAY ==
[2019-10-22 09:00] VITALS: BMI 35.6
--- NOTE | 2021-01-29 | COLBX_PTH ---
PATIENT: JAQUELINE PEREYRA LOC: EN U#:[id number] AGE/SX: 60/M ROOM: RE01/29/[address]: Dr. Sahil Douglass MD : 1960 BED: DIS: 01/29/2021 SPEC #: [id number] RECD: 01/29/21 11:21 STATUS: OZZIE SHERLEY #: [id number] MONIK: 01/29/21 00:[address]: Sahil Douglass DEPT: SURGICAL PATHOLOGY RECD BY: Angie Humphrey ENTERED: 01/29/21 11:22 SP TYPE: COLON BX SYD DR: Gab Corbett, SECONDARY SCHOOL TEACHER-C Tissues: A - Cecum, NOS B - Transverse colon C - Transverse colon Procedures: Surgery Specimen Level IV HEADER OPERATION: Colonoscopy - open access (MAC) PRE-OP DIAGNOSIS: History of colonic polyps TISSUE SUBMITTED: A - Cecum polyp, B - Proximal transverse polyp x3, C - Mid transverse polyp MICROSCOPIC DIAGNOSIS A. Cecal polyp, biopsy: Fragments of tubular adenoma. B. Proximal transverse colon polyps, biopsy: Fragments of tubular adenoma. C. Mid transverse colon polyp, biopsy: Polypoid fragment of benign colonic mucosa. See comment. AM:lorraine 02/01/2021 COMMENT C. Neither hyperplastic nor adenomatous change is identified. Clinical correlation is suggested. MICROSCOPIC DESCRIPTION Slides are reviewed. GROSS DESCRIPTION A - Received in fixative is one container labeled with the patient's name and designated cecal polyp. The specimen consists of multiple irregular fragments of light castillo soft tissue that in aggregate measure 0.8 x 0.4 x 0.1 cm. The specimen is totally submitted in one cassette. B - Received in fixative is one container labeled with the patient's name and designated proximal transverse polyp x3. The specimen consists of multiple irregular fragments of light castillo soft tissue that in aggregate measure 2 x 2.5 x 0.3 cm. The specimen is totally submitted in one cassette. C - Received in fixative is one container labeled with the patient's name and designated mid transverse polyp. The specimen consists of one irregular fragment of light castillo soft tissue that measures 0.3 x 0.3 x 0.1 cm. The specimen is totally submitted in one cassette. / AUDREY:lorraine 01/29/21 TC:5 CPT: 27392 x3
--- NOTE | 2021-01-29 09:05 | PCM.HP.STD ---
Problem List (1) Personal history of colonic polyps Status: Acute History of Present Illness Date of Admission: 01/29/21 60-year-old gentleman returns via open access for colonoscopy. As noted below October 2018 he had a colonoscopy with a dysplastic polyp. He has no current complaints. No abdominal pain. No bright red blood per rectum or melena. He did have COVID-07 September 2020. He claims that he is required without sequelae The patient is a 60 year old M with no history of colon polyps. October 2019. A. Distal transverse colon polyp, biopsy: Fragments of colonic mucosa, no pathologic diagnosis. B. Proximal sigmoid polyp, biopsy: Tubular adenoma with focal high grade dysplasia. 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 Dyslipidemia (Chronic) E78.5 Testicular cancer (Chronic) C62.90 Pulmonary embolism (Acute) I26.99 Allergies hydrocodone [From Vicodin] Adverse Reaction (Verified 01/29/21 09:00) Nausea/Vom/Diarrhea TAPE Adverse Reaction (Uncoded 01/29/21 09:00) Unknown Home Medications: Ambulatory Orders Medication Instructions Recorded Ascorbic Acid [Vitamin C] 1,000 mg PO DAILY 11/03/16 Atorvastatin Calcium [Lipitor] 40 mg PO QHS 11/03/16 Fenofibrate [Lofibra] 160 mg PO DAILY 11/03/16 Fexofenadine/Pseudoephedrine 1 ea PO DAILY 11/03/16 [Trixie-D 12 Hour Tablet] Levothyroxine [Synthroid] 25 mcg PO DAILY 11/03/16 [place]-3 Fatty Acids [Fish Oil] 1,200 mg PO BID 11/03/16 Omeprazole [Prilosec] 40 mg PO DAILY 11/03/16 Multivitamin [Multiple Vitamins] 1 ea PO DAILY 11/22/16 Acetaminophen [Tylenol Tablet] 650 mg PO Q6H PRN PRN tab 04/26/17 fluticasone propionate 50 2 spray INTRANASAL QDAY 03/23/18 mcg/actuation nasal spray,suspension traMADol [Ultram] 100 mg PO Q6H PRN PRN 4 Days #15 04/21/18 tablet Amlodipine [Norvasc] 10 mg PO DAILY 10/16/19 Surgical History: Surgical History (Last Updated 05/14/18 @ 13:18 by Dolores Amaya) History of colonoscopy Z98.890 History of hip surgery Z98.890 History of melanoma excision Z98.890, Z85.820 History of orchiectomy Z90.79 S/P repair of ventral hernia Onset Date: ~04/2018 Z98.890, Z87.19 Surgical History: - Smoking Status: Former smoker Tobacco Use: Non-smoker - *Family History Paternal Family History: Family History (Last Reviewed 05/14/18 @ 13:17 by Dolores Amaya) Father Asthma Cancer Brother Hypertension CAD (coronary artery disease) History Items: No pertinent history Review of Systems Constitutional: Denies: Fever Cardiovascular: Denies: Chest Pain Respiratory: Denies: Cough, Shortness of Breath Gastrointestinal: Denies: Abdominal Pain Endocrine: Denies: Change in Body Habitus VTE Information - Inpt Only VTE Present on Admission: No - Physical Exam Vitals/I&O's: Body Mass Index (BMI) 35.6 General: Alert, Oriented x3, Cooperative, No apparent distress HEENT: Atraumatic Oral: Moist Mucosa Neck: Supple Lungs: Clear to auscultation, Normal air movement Cardiovascular: Regular rate, Regular Rhythm Abdomen: Soft, Non Tender Psych/Mental Status: Normal Affect Microbiology Past 72 Hours 01/28/21 10:30 Interface Orders SARS-CoV-2 Antigen (Rapid) - Final Assessment/Plan All Active Problems (Last Reviewed 05/14/18 @ 13:17 by Dolores Amaya) Personal history of colonic polyps (Acute) Ventral incisional hernia (Acute) Personal history of pulmonary embolism (Acute) Hypothyroid (Acute) GERD (gastroesophageal reflux disease) (Acute) Hyperlipidemia (Acute) History of melanoma (Acute) Seminoma (Acute) Pulmonary embolism (Acute) Plan to proceed with a colonoscopy with possible biopsy or polypectomy is indicated. Previous history of dysplastic polyp. He has had an opportunity to ask and have questions answered. He presents via open access today. We will proceed as noted. Sahil Douglass M.D., F.A.C.S. Procedure Criteria Procedure Type: Elective COVID Risk Discussion: The surgeon/proceduralist and patient have discussed in detail the risk of exposure to and/or potential harm posed by the COVID-19 virus with having a surgery/procedure at this time versus the risk of delaying the surgery/procedure. It is not possible to know either the risk of delaying the surgery or procedure or chance of getting an infection with perfect accuracy, but a joint decision was made between the patient and the surgeon/proceduralist to proceed at this time with the scheduled surgery/procedure as indicated on the consent form.
[2021-01-29 09:16] VITALS: BP 144/99; PULSE 94; RESP 16; TEMP 36.9; O2SAT 95; BMI 36.3
[2021-01-29] MEDS: Lactated Ringers 1,000 ML 100 ML IV (09:21)
[2021-01-29 10:34] VITALS: BP 116/74; BP 144/99; PULSE 97; RESP 16; TEMP 36.9; O2SAT 94
--- NOTE | 2021-01-29 10:37 | OP.CCLET_ITS ---
01/29/2021 Gab Corbett Re : Colonoscopy procedure for Eliceo Corbett This procedure was performed on Friday, January 29, 2021. My impressions and recommendations are as follows: Impressions : - Preparation of the colon was poor. - Hemorrhoids found on perianal exam. - One 5 mm polyp in the cecum, removed with a cold biopsy forceps. Resected and retrieved. - One 7 mm polyp in the proximal transverse colon, removed with a hot snare. Resected and retrieved. - One 6 mm polyp in the proximal descending colon in the proximal transverse colon, removed with a hot snare. Resected and retrieved. - One 4 mm polyp in the proximal transverse colon, removed with a cold biopsy forceps. Resected and retrieved. - One 3 mm polyp in the mid transverse colon, removed with a cold biopsy forceps. Resected and retrieved. - Diverticulosis in the entire examined colon. Recommendations : - Discharge patient to home. - Resume previous diet. - Continue present medications. - Telephone my office for pathology results in 1 week. - Repeat colonoscopy in 1 year for surveillance. I would anticipate a more aggressive bowel prep next attempt and assure clear liquids My findings are described in the full procedure note, which is enclosed. If I can be of further assistance, please feel free to contact me at Doctor phone number(s): Work: . Sincerely, Sahil Douglass MD 01/29/2021 10:37:37 AM This report has been signed electronically.
--- NOTE | 2021-01-29 10:37 | OP.COLON_ITS ---
Patient Name: Eliceo Graham Procedure Date: 01/29/2021 9:51 AM Date of : 1960 Age: 60 Procedure: Colonoscopy Indications: High risk colon cancer surveillance: Personal history of colonic polyps Providers: Sahil Douglass MD Referring MD: Gab Corbett Medicines: See the Anesthesia note for documentation of the administered medications Patient Profile: Last Colonoscopy: October 2019. Complications: No immediate complications. Procedure: Pre-Anesthesia Assessment: - Prior to the procedure, a History and Physical was performed, and patient medications and allergies were reviewed. The patient's tolerance of previous anesthesia was also reviewed. The risks and benefits of the procedure and the sedation options and risks were discussed with the patient. All questions were answered, and informed consent was obtained. Prior Anticoagulants: The patient has taken no previous anticoagulant or antiplatelet agents. ASA Grade Assessment: II - A patient with mild systemic disease. After reviewing the risks and benefits, the patient was deemed in satisfactory condition to undergo the procedure. After I obtained informed consent, the scope was passed under direct vision. Throughout the procedure, the patient's blood pressure, pulse, and oxygen saturations were monitored continuously. The colonoscope was introduced through the anus and advanced to the cecum, identified by appendiceal orifice and ileocecal valve. The colonoscopy was performed with moderate difficulty due to poor bowel prep. The patient tolerated the procedure well. The quality of the bowel preparation was poor. The ileocecal valve and the appendiceal orifice were photographed. Scope In: 10:02:21 AM Scope Withdrawal Time 0 hours 22 minutes 18 seconds Scope Out: 10:27:28 AM Total Procedure Duration Time 0 hours 25 minutes 7 seconds Findings: Hemorrhoids were found on perianal exam. The digital rectal exam was normal. Pertinent negatives include normal prostate (size, shape, and consistency). A 5 mm polyp was found in the cecum. The polyp was sessile. The polyp was removed with a cold biopsy forceps. Resection and retrieval were complete. A 7 mm polyp was found in the proximal transverse colon. The polyp was sessile. The polyp was removed with a hot snare. Resection and retrieval were complete. A 6 mm polyp was found in the proximal descending colon proximal transverse colon. The polyp was sessile. The polyp was removed with a hot snare. Resection and retrieval were complete. A 4 mm polyp was found in the proximal transverse colon. The polyp was sessile. The polyp was removed with a cold biopsy forceps. Resection and retrieval were complete. A 3 mm polyp was found in the mid transverse colon. The polyp was sessile. The polyp was removed with a cold biopsy forceps. Resection and retrieval were complete. A few diverticula were found in the entire colon. Impression: - Preparation of the colon was poor. - Hemorrhoids found on perianal exam. - One 5 mm polyp in the cecum, removed with a cold biopsy forceps. Resected and retrieved. - One 7 mm polyp in the proximal transverse colon, removed with a hot snare. Resected and retrieved. - One 6 mm polyp in the proximal descending colon in the proximal transverse colon, removed with a hot snare. Resected and retrieved. - One 4 mm polyp in the proximal transverse colon, removed with a cold biopsy forceps. Resected and retrieved. - One 3 mm polyp in the mid transverse colon, removed with a cold biopsy forceps. Resected and retrieved. - Diverticulosis in the entire examined colon. Recommendation: - Discharge patient to home. - Resume previous diet. - Continue present medications. - Telephone my office for pathology results in 1 week. - Repeat colonoscopy in 1 year for surveillance. I would anticipate a more aggressive bowel prep next attempt and assure clear liquids Procedure Code(s): --- Professional --- 45241, Colonoscopy, flexible; with removal of tumor(s), polyp(s), or other lesion(s) by snare technique 00659, 61, Colonoscopy, flexible; with biopsy, single or multiple Diagnosis Code(s): --- Professional --- Z86.010, Personal history of colonic polyps K64.9, Unspecified hemorrhoids D12.0, Benign neoplasm of cecum D12.4, Benign neoplasm of descending colon D12.3, Benign neoplasm of transverse colon (hepatic flexure or splenic flexure) K57.30, Diverticulosis of large intestine without perforation or abscess without bleeding CPT copyright 2017 [employer]. All rights reserved. The codes documented in this report are preliminary and upon him coder review may be revised to meet current compliance requirements. Sahil Douglass MD 01/29/2021 10:37:37 AM This report has been signed electronically. Number of Addenda: 0 Note Initiated On: 01/29/2021 9:51 AM
[2021-01-29 10:40] VITALS: BP 113/79; BP 144/99; PULSE 90; RESP 14; O2SAT 95
[2021-01-29 10:42] VITALS: BP 118/84; BP 144/99; PULSE 78; RESP 16; TEMP 36.4; O2SAT 97
[2021-01-29 10:44] VITALS: BP 122/82; BP 144/99; PULSE 87; RESP 16; O2SAT 95
[2021-01-29 11:20] VITALS: BP 144/99
== END 2021-01-29 11:21 | disposition home or self-care (01) ==
LOC: EN 08:50 → AC 08:50
PROVIDERS: PCP Nurse Practitioner Family; Referring Provider Nurse Practitioner Family; Visit Provider Surgery
PROC: 0DJD8ZZ Inspection of Lower Intestinal Tract, Via Natural or Artificial Opening Endoscopic (ICD-10-PCS; CPT 45378; principal; 2021-01-29 09:55)
DX: D12.0 Benign neoplasm of cecum (principal); D12.3 Benign neoplasm of transverse colon; K57.30 Diverticulosis of large intestine without perforation or abscess without bleeding; K64.9 Unspecified hemorrhoids; Z86.010 Personal history of colon polyps; Z20.828 Contact with and (suspected) exposure to other viral communicable diseases; I10 Essential (primary) hypertension; E78.5 Hyperlipidemia, unspecified; E03.9 Hypothyroidism, unspecified; G47.30 Sleep apnea, unspecified; E78.00 Pure hypercholesterolemia, unspecified; K21.9 Gastro-esophageal reflux disease without esophagitis; Z86.711 Personal history of pulmonary embolism; Z85.47 Personal history of malignant neoplasm of testis; Z85.820 Personal history of malignant melanoma of skin; Z79.899 Other long term (current) drug therapy; Z87.891 Personal history of nicotine dependence
CPT/HCPCS: 45380; 45385; 87426; 88305; C9803; J7120; J2405

== ENCOUNTER 2022-02-04 07:29 | Day surgery (SDC) | payer BC, SELFPAY ==
[2022-02-04 07:55] VITALS: BP 153/90; PULSE 88; RESP 16; TEMP 37.3; O2SAT 95; BMI 36.7
[2022-02-04] MEDS: Lactated Ringers 1,000 ML 15 ML IV (07:55)
--- NOTE | 2022-02-04 08:10 | PCM.HP.STD ---
HPI - General HPI Narrative JAQUELINE PEREYRA, is a 61 M who presents for surveillance colonoscopy. He has had a history of multiple polyps. His most recent colonoscopy was January 2021. He denies any abdominal pain bright red blood per rectum or melena. He otherwise has enjoyed good health over the last year. [facility] Medical History Alcohol use Arthritis Back pain CPAP (continuous positive airway pressure) dependence Dyslipidemia Former smoker GERD (gastroesophageal reflux disease) History of melanoma History of pain when walking Hyperlipidemia Hypertension Hypothyroid Injury of head and neck Personal history of pulmonary embolism Pulmonary embolism Seminoma Testicular cancer Thyroid disease Home Medications ascorbic acid (vitamin C) 1,000 mg PO DAILY 11/03/16 [History Last Taken 04/25/17 08:00] fenofibrate 160 mg PO DAILY 11/03/16 [History Last Taken 04/24/17 22:00] fexofenadine-pseudoephedrine 1 ea PO DAILY 11/03/16 [History Last Taken 04/25/17 08:00] levothyroxine 75 mcg PO DAILY 11/03/16 [History Last Taken 04/20/18 06:00] omeprazole 40 mg PO DAILY 11/03/16 [History Last Taken 04/20/18 06:00] multivitamin 1 ea PO DAILY 11/22/16 [History Last Taken 04/25/17 08:00] acetaminophen 650 mg PO Q6H PRN PRN tab 04/26/17 [Rx Last Taken Unknown] fluticasone propionate 50 mcg/actuation nasal spray,suspension 2 spray INTRANASAL QDAY 03/23/18 [History Last Taken Unknown] amlodipine 10 mg PO DAILY 10/16/19 [History Last Taken 10/22/19 07:00] meloxicam [Mobic] 15 mg PO PRN PRN 02/02/22 [History Last Taken Unknown] Allergy/AdvReac Type Severity Reaction Status Date / Time hydrocodone [From Vicodin] AdvReac Nausea/Vom/ Verified 02/02/22 12:54 Diarrhea TAPE AdvReac Unknown Uncoded 02/02/22 12:54 Family History Father Asthma Cancer Brother Hypertension CAD (coronary artery disease) Surgical History History of colonoscopy History of hip surgery History of melanoma excision History of orchiectomy S/P repair of ventral hernia (~04/2018) Social History (Updated 05/15/18 @ 07:35 by Carly OCONNELL PA-C) Smoking Status: Former smoker alcohol intake: current alcohol intake frequency: 0-2 drinks per day ROS Constitutional Constitutional: Reports systems reviewed and no addt'l complaints, except as documented Cardiovascular Cardiovascular: Denies chest pain Respiratory/Chest Respiratory/Chest: Denies shortness of breath at rest Gastrointestinal Gastrointestinal: Denies abdominal pain, change in bowel habits, hematochezia or melena Vital Signs Vital Signs Vital Signs: 02/04/22 07:55 Temperature 99.1 F Temperature Source Temporal Pulse Rate 88 Respiratory Rate 16 Respiratory Pattern Normal Blood Pressure 153/90 H Blood Pressure Mean 111 Blood Pressure Source Monitor Blood Pressure Position Semi-Fowlers Blood Pressure Location Left Arm Pulse Ox 95 Oxygen Delivery Method Room Air Weight Weight: 255 lb 15.307 oz Body Mass Index (BMI) 36.7 Physical Exam Const alert, oriented x3 and no apparent distress General Appearance: cooperative and comfortable Eyes General Eye: normal appearance of both eyes Neck General: normal visual inspection Chest inspection of chest normal Resp Effort and Inspection: able to speak in complete sentences and symmetric chest movement Auscultation: clear to auscultation bilaterally Cardio regular rate and regular rhythm GI soft to palpation, non-tender and non-distended Extremity no calf tenderness Neuro oriented x3 Psych thought process normal Assessment & Plan Assessment/Plan (1) Personal history of colonic polyps: PLAN: The patient has a personal history of multiple colon polyps. He presents today via open access. He is aware of the technique, benefit, risk, alternatives. Plans to proceed with a surveillance colonoscopy. Sahil Douglass M.D., F.A.C.S.
--- NOTE | 2022-02-04 08:30 | COLBX_PTH ---
PATIENT: JAQUELINE PEREYRA LOC: EN U#:[id number] AGE/SX: 61/M ROOM: RE02/04/[address]: Dr. Sahil Douglass MD : 1960 BED: DIS: 02/04/2022 SPEC #: [id number] RECD: 02/04/22 12:24 STATUS: OZZIE SHERLEY #: [id number] MONIK: 02/04/22 08:[address]: Sahil Douglass DEPT: SURGICAL PATHOLOGY RECD BY: Angie Humphrey ENTERED: 02/04/22 13:16 SP TYPE: COLON BX SYD DR: Gab Corbett, PLC ENGINEER-C Tissues: A - Transverse colon B - Transverse colon C - Transverse colon D - Transverse colon E - COLON BIOPSY F - Descending colon Procedures: Surgery Specimen Level IV HEADER OPERATION: Colonoscopy ? open access (MAC) PRE-OP DIAGNOSIS: History of colonic polyps TISSUE SUBMITTED: A - Proximal transverse colon polyp, B - Mid transverse colon polyp (4 mm), C - Mid transverse colon polyp (9 mm), D - Mid transverse colon polyp (4 mm), E ? Splenic flexure biopsy, F ? Proximal descending colon polyp MICROSCOPIC DIAGNOSIS A. Proximal transverse colon polyp, biopsy: Tubular adenoma. B. Mid transverse colon polyp (4 mm), biopsy: Tubular adenoma. C. Mid transverse colon polyp (9 mm), biopsy: Fragments of tubular adenoma. D. Mid transverse colon polyp (4 mm), biopsy: Tubular adenoma. E. Splenic flexure, biopsy: A fragment of colonic mucosa, no pathologic diagnosis. F. Proximal descending colon polyp, biopsy: Fragments of tubular adenoma. AM:lorraine 02/07/2022 MICROSCOPIC DESCRIPTION Slides are reviewed. GROSS DESCRIPTION A - Received in fixative is one container labeled with the patient's name and designated proximal transverse colon biopsy. The specimen consists of multiple irregular fragments of light castillo soft tissue that in aggregate measure 0.7 x 0.5 x 0.1 cm. The specimen is totally submitted in one cassette. B - Received in fixative is one container labeled with the patient's name and designated transverse colon polyp. The specimen consists of two irregular fragments of light castillo soft tissue that in aggregate measure 0.6 x 0.3 x 0.1 cm. The specimen is totally submitted in one cassette. C - Received in fixative is one container labeled with the patient's name and designated transverse colon polyp. The specimen consists of multiple irregular fragments of light castillo soft tissue that in aggregate measure 1.5 x 0.5 x 0.1 cm. The specimen is totally submitted in one cassette. D - Received in fixative is one container labeled with the patient's name and designated transverse colon polyp. The specimen consists of one irregular fragment of light castillo soft tissue that measures 0.5 x 0.5 x 0.1 cm. The specimen is totally submitted in one cassette. E - Received in fixative is one container labeled with the patient's name and designated splenic flexure polyp. The specimen consists of one irregular fragment of light castillo soft tissue that measures 0.5 x 0.2 x 0.1 cm. The specimen is totally submitted in one cassette. F - Received in fixative is one container labeled with the patient's name and designated proximal descending colon polyp. The specimen consists of multiple irregular fragments of light castillo soft tissue that in aggregate measure 1 x 0.3 x 0.1 cm. The specimen is totally submitted in one cassette. / AM:lorraine 02/04/2022 TC:1 CPT: 83799 x6
[2022-02-04 09:35] VITALS: BP 110/73; BP 153/90; PULSE 96; RESP 18; TEMP 36.8; O2SAT 93
--- NOTE | 2022-02-04 09:38 | OP.CCLET_ITS ---
02/04/2022 Gab Corbett Re : Colonoscopy procedure for Eliceo Corbett This procedure was performed on Friday, February 04, 2022. My impressions and recommendations are as follows: Impressions : - Hemorrhoids found on perianal exam. - One 5 mm polyp in the proximal transverse colon, removed with a cold biopsy forceps. Resected and retrieved. - One 4 mm polyp in the proximal transverse colon, removed with a cold biopsy forceps. Resected and retrieved. - One 9 mm polyp in the proximal transverse colon, removed with a hot snare. Resected and retrieved. - One 4 mm polyp in the proximal transverse colon, removed with a cold biopsy forceps. Resected and retrieved. - One 4 mm polyp at the splenic flexure, removed with a cold biopsy forceps. Resected and retrieved. - One 4 mm polyp in the proximal descending colon, removed with a cold biopsy forceps. Resected and retrieved. - Diverticulosis in the sigmoid colon. Recommendations : - Discharge patient to home. - Resume previous diet. - Continue present medications. - Repeat colonoscopy in 3 years for surveillance based on pathology results. - Telephone my office for pathology results in 1 week. My findings are described in the full procedure note, which is enclosed. If I can be of further assistance, please feel free to contact me at Doctor phone number(s): Work: . Sincerely, Sahil Douglass MD 02/04/2022 9:37:35 AM This report has been signed electronically.
--- NOTE | 2022-02-04 09:38 | OP.COLON_ITS ---
Patient Name: Eliceo Graham Procedure Date: 02/04/2022 8:52 AM Date of : 1960 Age: 61 Procedure: Colonoscopy Indications: High risk colon cancer surveillance: Personal history of colonic polyps Providers: Sahil Douglass MD Medicines: See the Anesthesia note for documentation of the administered medications Patient Profile: Last Colonoscopy: 1 year ago. Complications: No immediate complications. Procedure: Pre-Anesthesia Assessment: - Prior to the procedure, a History and Physical was performed, and patient medications and allergies were reviewed. The patient's tolerance of previous anesthesia was also reviewed. The risks and benefits of the procedure and the sedation options and risks were discussed with the patient. All questions were answered, and informed consent was obtained. Prior Anticoagulants: The patient has taken no previous anticoagulant or antiplatelet agents. ASA Grade Assessment: II - A patient with mild systemic disease. After reviewing the risks and benefits, the patient was deemed in satisfactory condition to undergo the procedure. After I obtained informed consent, the scope was passed under direct vision. Throughout the procedure, the patient's blood pressure, pulse, and oxygen saturations were monitored continuously. The Colonoscope was introduced through the anus and advanced to the cecum, identified by appendiceal orifice and ileocecal valve. The colonoscopy was performed without difficulty. The patient tolerated the procedure well. The quality of the bowel preparation was good. The ileocecal valve and the appendiceal orifice were photographed. Scope In: 9:02:52 AM Scope Withdrawal Time 0 hours 24 minutes 24 seconds Scope Out: 9:30:15 AM Total Procedure Duration Time 0 hours 27 minutes 23 seconds Findings: Hemorrhoids were found on perianal exam. A 5 mm polyp was found in the proximal transverse colon. The polyp was sessile. The polyp was removed with a cold biopsy forceps. Resection and retrieval were complete. A 4 mm polyp was found in the proximal transverse colon. The polyp was sessile. The polyp was removed with a cold biopsy forceps. Resection and retrieval were complete. A 9 mm polyp was found in the proximal transverse colon. The polyp was sessile. The polyp was removed with a hot snare. Resection and retrieval were complete. A 4 mm polyp was found in the proximal transverse colon. The polyp was sessile. The polyp was removed with a cold biopsy forceps. Resection and retrieval were complete. A 4 mm polyp was found in the splenic flexure. The polyp was sessile. The polyp was removed with a cold biopsy forceps. Resection and retrieval were complete. A 4 mm polyp was found in the proximal descending colon. The polyp was sessile. The polyp was removed with a cold biopsy forceps. Resection and retrieval were complete. Scattered diverticula were found in the sigmoid colon. Impression: - Hemorrhoids found on perianal exam. - One 5 mm polyp in the proximal transverse colon, removed with a cold biopsy forceps. Resected and retrieved. - One 4 mm polyp in the proximal transverse colon, removed with a cold biopsy forceps. Resected and retrieved. - One 9 mm polyp in the proximal transverse colon, removed with a hot snare. Resected and retrieved. - One 4 mm polyp in the proximal transverse colon, removed with a cold biopsy forceps. Resected and retrieved. - One 4 mm polyp at the splenic flexure, removed with a cold biopsy forceps. Resected and retrieved. - One 4 mm polyp in the proximal descending colon, removed with a cold biopsy forceps. Resected and retrieved. - Diverticulosis in the sigmoid colon. Recommendation: - Discharge patient to home. - Resume previous diet. - Continue present medications. - Repeat colonoscopy in 3 years for surveillance based on pathology results. - Telephone my office for pathology results in 1 week. Procedure Code(s): --- Professional --- 15557, Colonoscopy, flexible; with removal of tumor(s), polyp(s), or other lesion(s) by snare technique 19349, 61, Colonoscopy, flexible; with biopsy, single or multiple Diagnosis Code(s): --- Professional --- Z86.010, Personal history of colonic polyps K64.9, Unspecified hemorrhoids D12.3, Benign neoplasm of transverse colon (hepatic flexure or splenic flexure) D12.4, Benign neoplasm of descending colon K57.30, Diverticulosis of large intestine without perforation or abscess without bleeding CPT copyright 2017 [employer]. All rights reserved. The codes documented in this report are preliminary and upon fuel storage technician review may be revised to meet current compliance requirements. Sahil Douglass MD 02/04/2022 9:37:35 AM This report has been signed electronically. Number of Addenda: 0 Note Initiated On: 02/04/2022 8:52 AM
[2022-02-04 09:40] VITALS: BP 153/90; PULSE 94; RESP 18; O2SAT 96
[2022-02-04 09:45] VITALS: BP 133/87; BP 153/90; PULSE 90; RESP 16; O2SAT 92
[2022-02-04 09:50] VITALS: BP 146/99; BP 153/90; PULSE 93; RESP 16; TEMP 36.9; O2SAT 96
[2022-02-04 10:03] VITALS: BP 153/90
== END 2022-02-04 23:59 | disposition home or self-care (01) ==
LOC: EN 07:31 → AC 07:32
PROVIDERS: PCP Nurse Practitioner Family; Referring Provider Nurse Practitioner Family; Visit Provider Surgery
PROC: 0DJD8ZZ Inspection of Lower Intestinal Tract, Via Natural or Artificial Opening Endoscopic (ICD-10-PCS; CPT 45378; principal; 2022-02-04 08:25)
DX: D12.3 Benign neoplasm of transverse colon (principal); D12.4 Benign neoplasm of descending colon; K63.5 Polyp of colon; Z86.010 Personal history of colon polyps; M19.90 Unspecified osteoarthritis, unspecified site; K21.9 Gastro-esophageal reflux disease without esophagitis; E78.5 Hyperlipidemia, unspecified; I10 Essential (primary) hypertension; E03.9 Hypothyroidism, unspecified; Z86.711 Personal history of pulmonary embolism; Z85.47 Personal history of malignant neoplasm of testis; Z85.820 Personal history of malignant melanoma of skin; Z79.899 Other long term (current) drug therapy; Z87.891 Personal history of nicotine dependence; K64.9 Unspecified hemorrhoids
CPT/HCPCS: 45385; 45380; 88305; J7120; J2405

== ENCOUNTER → 2024-02-02 | Outpatient (CLI) | payer BC, SELFPAY ==
--- OUTSIDE RECORDS SUMMARY | 2024-02-02 07:39 | XMS RPT_ITS | CCD ---
Author Name Unknown Address [address] [facility] [address] [place] [address] Organization [facility] Care Team Providers Care Extruder Name Role Phone ARIC Lang CNP, GAB [place] Primary Care Phys ician Aric LANDA, Gab [place] Primary Care Provider BROOK REED Attending Unavailable ARIC METAL BURRER - TRANSITION TEACHER, GAB [place] Primary Care U navailable ARIC METAL BURRER - TRANSITION TEACHER, GAB [place] Primary Care U navailable ARIC METAL BURRER - TRANSITION TEACHER, GAB [place] Attending U navailable ARIC METAL BURRER - TRANSITION TEACHER, GAB [place] Primary Care U navailable ARIC METAL BURRER - TRANSITION TEACHER, GAB [place] Attending U navailable ARIC METAL BURRER - TRANSITION TEACHER, GAB [place] Primary Care U navailable ARIC METAL BURRER - TRANSITION TEACHER, GAB [place] Attending U navailable Allergies Allergy Classification Reported Allergen(s) Allergy Type Date of Onset Reaction(s) Facility (6 sources) Acetaminophen / HYDROcodone Drug Allergy 11-10-2016 Intolerance [facility] Work Phone: Medications Current Medications Medication Drug Class(es) Dates Sig (Normalized) Sig (Original) Trixie-D 12 Hour Allergy & Congestion 60 mg-120 mg oral tablet, extended release (1 source) Start: 05-28-2021 End: 02-22-2022 take 1 tablet by mouth every twelve hours Trixie-D 12 Hour Allergy & Congestion 60 mg-120 mg oral tablet, extended release Dose = 1 tab(s), Oral, q12h, # 180 tab(s), 2 Refill(s), [facility], Seasonal allergies, 174.5, cm, 05/28/21 15:52:00 EDT, Height, kg, 05/28/21 15:52:00 EDT, Dosing Weight Start Date: 05/28/21 Stop Date: 02/22/22 Status: Ordered Trixie-D 12 Hour Allergy and Congestion 60 mg-120 mg oral tablet, extended release (1 source) Start: 12-21-2021 End: 09-17-2022 take 1 tablet by mouth every twelve hours Trixie-D 12 Hour Allergy and Congestion 60 mg-120 mg oral tablet, extended release Dose = 1 tab(s), Oral, q12h, # 180 tab(s), 2 Refill(s), Pharmacy: [facility], Seasonal allergies, 174.5, cm, 12/21/21 16:02:00 EST, Height, kg, 12/21/21 16:02:00 EST, Dosing Weight Start Date: 12/21/21 Stop Date: 09/17/22 Status: Ordered amLODIPine 5 mg oral tablet (8 sources) Dihydropyridine Calcium Channel Elly Start: 05-28-2021 End: 09-17-2022 amLODIPine 5 mg oral tablet Dose : 5 mg = 1 tab(s), Oral, qDay, # 90 tab(s), 2 Refill(s), Pharmacy: [facility], HTN, goal below 140/90, 174.5, cm, 12/21/21 16:02:00 EST, Height, kg, 12/21/21 16:02:00 EST, Dosing Weight Start Date: 12/21/21 Stop Date: 09/17/22 Status: Ordered Completed/Discontinued Medications Medication Drug Class(es) Dates Sig (Normalized) Sig (Original) ascorbic acid 500 mg oral tablet (6 sources) Vitamin C take 2 tablets by mouth once daily ascorbic acid, vitamin C, (VITAMIN C) 500 mg tablet Indications: Seminoma of descended left testis (HCC) , 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 0 Active Problems Active Problems Problem Classification Problem Date Documented Date Episodic/Chronic Abdominal pain (4 sources) Abdominal pain 09-08-2022 Episodic Cancer of testis (16 sources) Seminoma of testis; Translations: [Seminoma of descended testis] Onset: 11-10-2016 08-16-2019 Chronic Chronic kidney disease (3 sources) Chronic kidney disease stage 3 01-26-2023 Chronic Diabetes mellitus without complication (7 sources) Impaired fasting glycemia 09-16-2019 Episodic Disorders of lipid metabolism (10 sources) Hyperlipidemia; Translations: [Hypertriglyceridemia] 09-16-2019 Chronic Esophageal disorders (7 sources) Gastroesophageal reflux disease 10-26-2020 Chronic Essential hypertension (7 sources) Hypertensive disorder 08-16-2019 Chronic Melanomas of skin (6 sources) Malignant melanoma; Translations: [Malignant melanoma of skin, unspecified] Onset: 09-16-2014 09-16-2014 Chronic Other and unspecified benign neoplasm (7 sources) History of polyp of colon 01-29-2021 Episodic Past or Other Problems Problem Classification Problem Date Documented Da te Episodic/Chronic Other aftercare (6 sources) Long-term current use of anticoagulant; Translations: [correction (current) use of anticoagulants] Onset: 03-07-2017 03-07-2017 Episodic Other screening for suspected conditions (not mental disorders or infectious disease) (7 sources) Patient encounter status; Translations: [Encounter for screening for malignant neoplasm of colon] Onset: 10-04-2013 10-04-2013 Episodic Screening and history of mental health and substance abuse codes (6 sources) Ex-cigarette smoker; Translations: [Personal history of nicotine dependence] Onset: 03-07-2017 03-07-2017 Episodic Results Test Name Value Interpretation Reference Range Facil ity Vital Signs Date Time Vital Sign Value Performing Clinician Zahra bill 04-01-2022 15:07-0400 Body height 175.3 cm Caesar Alicea [employer] Work Phone: [facility] 04-01-2022 15:07-0400 Body temperature 97 [degF] Caesar Alicea DO Work Phone: [facility] 04-01-2022 15:07-0400 Body weight 117.03 kg Caesar Alicea [employer] Work Phone: [facility] 04-01-2022 15:07-0400 Diastolic blood pressure 93 mm[Hg] Caesar Alicea [employer] Work Phone: [facility] 04-01-2022 15:07-0400 Heart rate 108 /min Caesar Alicea [employer] Work Phone: [facility] 04-01-2022 15:07-0400 Systolic blood pressure 133 mm[Hg] Caesar Alicea DO Work Phone: [facility] Encounters Encounter Date Encounter Type Care Provider Facility Start: 12-26-2023 End: 12-27-2023 ambulatory BROOK REED Facility:B Start: 12-26-2023 End: 12-26-2023 Patient encounter procedure BROOK REED MD [facility] Start: 11-23-2023 End: 11-24-2023 ambulatory GAB [place] ARIC METAL BURRER - TRANSITION TEACHER Facility:B Start: 11-06-2023 End: 11-07-2023 ambulatory GAB [place] ARIC METAL BURRER - TRANSITION TEACHER Facility:B Start: 11-06-2023 End: 11-06-2023 Patient encounter procedure GAB ORDAZPKINS METAL BURRER - TRANSITION TEACHER [facility] Start: 09-06-2023 End: 09-07-2023 ambulatory GAB ORDAZPKINS METAL BURRER - TRANSITION TEACHER Facility:B Start: 09-06-2023 End: 09-06-2023 Patient encounter procedure GAB ORDAZPKINS METAL BURRER - TRANSITION TEACHER [facility] Start: 09-09-2022 End: 09-09-2022 Patient encounter procedure GAB ORDAZPKINS METAL BURRER - TRANSITION TEACHER [facility] Start: 09-01-2022 End: 09-01-2022 Patient encounter procedure BOO METAL BURRER-TRANSITION TEACHER [facility] Start: 04-01-2022 End: 04-01-2022 ambulatory Caesar Alicea DO Work Phone: Hematology/Oncology Procedures Date Procedure Procedure Detail Performing Clinician Start: 03-22-2022 Ct abdomen & pelvis w/contrast material Caesar Alicea DO Work Phone: Start: 03-22-2022 Ct thorax w/contrast material Caesar Alicea DO Work Phone: Start: 08-21-2017 Adult depression scr eening assessment Caesar Alicea DO Work Phone: Start: 10-10-2014 Colonoscopy Caesar Alicea DO Work Phone: Plan of Treatment Date Care Activity Detail Author Start: 03-22-2025 DIABETES SCREEN DIABETES SCREEN [facility] Start: 09-13-2024 DIABETES SCREEN DIABETES SCREEN [facility] Start: 07-21-2022 Influenza vaccination INFLUENZ A (Season Ended) [facility] Start: 06-21-2022 PROSTATE CANCER SCREENING DISCUSSION PROSTATE CANCER SCREENING DISCUSSION [facility] Start: 04-27-2022 COVID-19 VACCINE (4 - Booster for Moderna series) COVID-19 VACCINE (4 - Booster for Moderna series) [facility] Start: 03-23-2022 End: 05-23-2022 FERRITIN BLD FERRITIN BLD Lab Routine Abnormal LFTs Expected: 03/23/2022, Expires: 05/23/2022 [facility] Work Phone: Immunizations Immunization Date Immunization Notes Care Provider Fa cilijewel 09-18-2023 influenza, injectabl e, quadrivalent, contains preservative; Translations: [Fluarix PF Quadrivalent ] GAB CORBETT METAL BURRER - TRANSITION TEACHER [facility] 09-05-2018 influenza, injectabl e, quadrivalent, preservative free Caesar Alicea DO Work Phone: [facility] Payers Date Payer Category Payer Unknown [id number] 2016 Unknown [employer] PPO [id number] 2016-Present [phone] [address] [place] [address] PPO [id number] 2010 Unknown [employer] BLUE CARD PPO OOS [id number] 2010-Present [phone] [address] [place] [address] PPO [id number] 1962 Unknown [id number] 1962 Unknown [id number] 1962 Unknown [id number] 1962 Unknown [id number] Social History Date Type Detail Facility Start: 08-13-2019 Never smoked tobacco (f inding) [facility] Medical Equipment Procedure Code Equipment Code Equipment Origin al Text Equipment Identifier Dates Port Powerport M ri 6fr Polyurethane Implantable Infusion Slim Catheter - [id number] Start: 12-27-2016 Clinical Notes 03-29-2017 to 09-01-2022 Caesar Alicea, - 04/01/2022 3:17 PM EDTTelephone Encounter - Asia Nuno - 03/23/2022 8:06 AM EDTTelephone Encounter - Caesar Alicea DO - 03/23/2022 6:17 AM EDT Note Date & Type Note Facility 09-01-2022 Note ORIGINAL EXAMINATION: ULTRASOUND OF THE SCROTUM/TESTICLES WITH COLOR DOPPLER FLOW [id number]/13/2022 3:38 pm TECHNIQUE: Duplex ultrasound using B-mode/lee scaled imaging, Doppler spectral analysis and color flow Doppler was obtained of the testicles. COMPARISON: 10/31/2016 HISTORY: ORDERING SYSTEM PROVIDED HISTORY: Reason for Exam: right testicular pain/hx of Cancer FINDINGS: The left testicle has been removed in the interval. The right testicle is 3.6 x 2.1 x 2.3 cm. It is normal in echogenicity with no focal abnormality. There is blood flow demonstrated in the testicle with color Doppler. Spectral analysis shows mixed arterial and venous waveforms in the testicle. There is no hydrocele. No epididymal mass or increased vascularity. IMPRESSION: Negative ultrasound of the right testicle. No acute findings. There is blood flow in the testicle with Doppler. The left testicle has been removed. RECOMMENDATIONS: Interpreted by: Yang Donald MD Preliminary Report By: Yang Donald MD Electronically signed By Yang Donald MD Dictated Date: 09/01/2022 3:50:51 PM Prelim Date: 09/01/2022 3:54:27 PM Sign Date: 09/01/2022 3:54:27 PM Ordering Provider: [facility] 09-01-2022 Note ORIGINAL EXAMINATION: ULTRASOUND OF THE SCROTUM/TESTICLES WITH COLOR DOPPLER FLOW [id number]/13/2022 3:38 pm TECHNIQUE: Duplex ultrasound using B-mode/lee scaled imaging, Doppler spectral analysis and color flow Doppler was obtained of the testicles. COMPARISON: 10/31/2016 HISTORY: ORDERING SYSTEM PROVIDED HISTORY: Reason for Exam: right testicular pain/hx of Cancer FINDINGS: The left testicle has been removed in the interval. The right testicle is 3.6 x 2.1 x 2.3 cm. It is normal in echogenicity with no focal abnormality. There is blood flow demonstrated in the testicle with color Doppler. Spectral analysis shows mixed arterial and venous waveforms in the testicle. There is no hydrocele. No epididymal mass or increased vascularity. IMPRESSION: Negative ultrasound of the right testicle. No acute findings. There is blood flow in the testicle with Doppler. The left testicle has been removed. RECOMMENDATIONS: Interpreted by: Yang Donald MD Preliminary Report By: Yang Donald MD Electronically signed By Yang Donald MD Dictated Date: 09/01/2022 3:50:51 PM Prelim Date: 09/01/2022 3:54:27 PM Sign Date: 09/01/2022 3:54:27 PM Ordering Provider: [facility] 04-01-2022 Note HNO ID: [id number] Author: Caesar Alicea, DO Service: ? 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 2) Left brachial vein DVT. 3) PE 04/25/2017. HPI: The patient is a 61 yo male with PMH significant for HTN, hyperlipidemia, GERD, hypothyroidism and melanoma (10/2014; back; 2.5 mm thick; no ulceration). He developed rather acute onset of left testicular swelling and tenderness the first week of October 2016. He was seen by his PCP for evaluation and quickly referred to Dr. Sales. CT A/P 11/01/2016 performed with IV contrast demonstrated a 3.9 x 2.6 cm soft tissue density in the region of the lower mediastinum is adjacent to the esophagus. There was a 1.2 x 1.2 cm hypodensity in the left lobe of the liver potentially representing a cyst. Otherwise there was diffuse atherosclerotic calcification abdominal aorta noted. There was no aneurysm. There was retroperitoneal lymphadenopathy with enlarged nodes greater then 10-15 mm in short axis. The largest conglomerate contreras mass measured 9.5 x 6.9 cm. This was noted at the level of the left renal hilum. There was a 3.1 x 2.9 cm inhomogeneous enhancing mass in the left scrotum. A non-contrast enhanced CT of the chest performed the same day demonstrated within the inferior aspect of the lingular lobe there was a small focus of low attenuating but somewhat rounded density measuring 1.1 x 1.1 cm. There was a large posterior mediastinal mass pushing into the posterior aspect of the manda measuring 8.0 x 7.0 x 4.0 cm. This mass also push the esophagus anteriorly. Serum tumor markers performed on the same day (11/01/2016) revealed an LDH of 746. AFP was 2.1. Beta hCG was 94. The patient underwent a left radical orchiectomy on 11/04/2016. Pathology: TESTIS - RADICAL ORCHIECTOMY CANCER SUMMARY: Serum Tumor Markers: Alpha-fetoprotein (AFP) ? within normal limits Beta-subunit of human chorionic gonadotropin (B-hCG) elevation ? 94 mIU/mL (normal 0-3) Lactate dehydrogenase (LDH) elevation ? 746 U/L (normal 87-241). Specimen Laterality ? left testicle Tumor Focality - unifocal Tumor Size ? 5 x 3 x 4 cm Macroscopic Extent of Tumor ? confined to the testes Histologic Type ? seminoma, classic type. Margins: Spermatic cord margin ? uninvolved by the tumor Other margins - uninvolved by the tumor Microscopic Tumor Extension ? confined to the testes Lymph-Vascular Invasion - absent Regional Lymph Nodes: No nodes submitted or found. Distant Metastasis ? Not applicable Additional Pathologic Findings ? 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 PATHOLOGIC STAGE: pT1 pNx Mx S2. Previous therapy: 1) BEP x2 cycles (days 1-5 cycle #1 at [facility] because of scheduling issues here in office; received day 8 and 15 bleomycin here). 2) EP x2 cycles. Bleomycin stopped after second cycle due to noticeable dyspnea on exertion. PFTs and diffusion capacity (01/13/2017) study. 3) Underwent a a non- nerve-sparing RPLND, b/l template 03/29/2017. All LNs negative; no malignancy. Necrosis only. He developed swelling and warmth of the medial distal left upper extremity several days prior to starting cycle #4. Duplex ultrasound 01/24/2017 demonstrated brachial vein DVT. He started on Xarelto due to extensiveness of the thrombus. Was seen by vascular medicine preoperatively. Advised to hold Xarelto 5 days before surgery and not pursue full anticoagulation postoperatively. Incidental diagnosis of pulmonary embolism when he was seen in the ER at [facility] on 04/25/2017 for abdominal pain. Initial abdominopelvic CT scan revealed what might have been clot in the right lower lung. Subsequent CTA of the chest confirmed this. Previous CT of the abdomen and pelvis was performed at [facility] on 08/27/2019 as ordered by his PCP as part of workup for hypertension-- CT A/P 08/27/2019: FINDINGS: The visualized lung bases are unremarkable. The visualized portions of the heart are within normal limits. There is hepatomegaly with diffuse hepatic enlargement. Normal gallbladder and extrahepatic biliary system. Normal spleen. Normal pancreas. Normal bilateral adrenal glands. Normal right kidney. Mild hydronephrosis of the left kidney. Normal visualized stomach. Normal small intestine. There are multiple colonic diverticula consistent with diverticulosis. The appendix is visualized and appears normal. There is diffuse atherosclerotic calcification of the abdominal aorta with elongation and tortuosity, but without a demonstrated aneurysm. Normal inferior vena cava. There are postoperative changes with surgical clips in the retroperitoneum. No new lymphadenopathy. Normal urinary bladder. There is no free fluid in the abdomen or pelvis. Postoperative changes of the abdominal wall. Status post left orchiectomy. (more content not included)... 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 2) Left brachial vein DVT. 3) PE 04/25/2017. HPI: The patient is a 61 yo male with PMH significant for HTN, hyperlipidemia, GERD, hypothyroidism and melanoma (10/2014; back; 2.5 mm thick; no ulceration). He developed rather acute onset of left testicular swelling and tenderness the first week of October 2016. He was seen by his PCP for evaluation and quickly referred to Dr. Sales. CT A/P 11/01/2016 performed with IV contrast demonstrated a 3.9 x 2.6 cm soft tissue density in the region of the lower mediastinum is adjacent to the esophagus. There was a 1.2 x 1.2 cm hypodensity in the left lobe of the liver potentially representing a cyst. Otherwise there was diffuse atherosclerotic calcification abdominal aorta noted. There was no aneurysm. There was retroperitoneal lymphadenopathy with enlarged nodes greater then 10-15 mm in short axis. The largest conglomerate contreras mass measured 9.5 x 6.9 cm. This was noted at the level of the left renal hilum. There was a 3.1 x 2.9 cm inhomogeneous enhancing mass in the left scrotum. A non-contrast enhanced CT of the chest performed the same day demonstrated within the inferior aspect of the lingular lobe there was a small focus of low attenuating but somewhat rounded density measuring 1.1 x 1.1 cm. There was a large posterior mediastinal mass pushing into the posterior aspect of the manda measuring 8.0 x 7.0 x 4.0 cm. This mass also push the esophagus anteriorly. Serum tumor markers performed on the same day (11/01/2016) revealed an LDH of 746. AFP was 2.1. Beta hCG was 94. The patient underwent a left radical orchiectomy on 11/04/2016. Pathology: TESTIS - RADICAL ORCHIECTOMY CANCER SUMMARY: Serum Tumor Markers: Alpha-fetoprotein (AFP) within normal limits Beta-subunit of human chorionic gonadotropin (B-hCG) elevation 94 mIU/mL (normal 0-3) Lactate dehydrogenase (LDH) elevation 746 U/L (normal 87-241). Specimen Laterality left testicle Tumor Focality - unifocal Tumor Size 5 x 3 x 4 cm Macroscopic Extent of Tumor confined to the testes Histologic Type seminoma, classic type. Margins: Spermatic cord margin uninvolved by the tumor Other margins - uninvolved by the tumor Microscopic Tumor Extension confined to the testes Lymph-Vascular Invasion - absent Regional Lymph Nodes: No nodes submitted or found. 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 PATHOLOGIC STAGE: pT1 pNx Mx S2. Previous therapy: 1) BEP x2 cycles (days 1-5 cycle #1 at [facility] because of scheduling issues here in office; received day 8 and 15 bleomycin here). 2) EP x2 cycles. Bleomycin stopped after second cycle due to noticeable dyspnea on exertion. PFTs and diffusion capacity (01/13/2017) study. 3) Underwent a a non- nerve-sparing RPLND, b/l template 03/29/2017. All LNs negative; no malignancy. Necrosis only. He developed swelling and warmth of the medial distal left upper extremity several days prior to starting cycle #4. Duplex ultrasound 01/24/2017 demonstrated brachial vein DVT. He started on Xarelto due to extensiveness of the thrombus. Was seen by vascular medicine preoperatively. Advised to hold Xarelto 5 days before surgery and not pursue full anticoagulation postoperatively. Incidental diagnosis of pulmonary embolism when he was seen in the ER at [facility] on 04/25/2017 for abdominal pain. Initial abdominopelvic CT scan revealed what might have been clot in the right lower lung. Subsequent CTA of the chest confirmed this. Previous CT of the abdomen and pelvis was performed at [facility] on 08/27/2019 as ordered by his PCP as part of workup for hypertension-- CT A/P 08/27/2019: FINDINGS: The visualized lung bases are unremarkable. The visualized portions of the heart are within normal limits. There is hepatomegaly with diffuse hepatic enlargement. Normal gallbladder and extrahepatic biliary system. Normal spleen. Normal pancreas. Normal bilateral adrenal glands. Normal right kidney. Mild hydronephrosis of the left kidney. Normal visualized stomach. Normal small intestine. There are multiple colonic diverticula consistent with diverticulosis. The appendix is visualized and appears normal. There is diffuse atherosclerotic calcification of the abdominal aorta with elongation and tortuosity, but without a demonstrated aneurysm. Normal inferior vena cava. There are postoperative changes with surgical clips in the retroperitoneum. No new lymphadenopathy. Normal urinary bladder. There is no free fluid in the abdomen or pelvis. Postoperative changes of the abdominal wall. Status post left orchiectomy. There is degenerative change of the spine. There is grade 1 spondylolisthesis at L5-S1 with bilateral spondylolysis of L5. There is right hip replacement. IMPRESSION: Mild left hydronephrosis. No stones are seen. There is postoperativechange of the retroperitoneum. There is no new lymphadenopathy. Colonic diverticulosis. No obstruction or abscess. Hepatomegaly. No biliary dilatation. Presents for ongoing oncologic management. Interim history: He has no complaints today. Started on gel preparation testosterone. Has helped with fatigue. No symptoms of cardiomyopathy. Intermittent symptoms of neuropathy. Performs regular self testicular exam. He has no concerning findings. PMH, medications and allergies as below personally reviewed by me today. Any changes documented in appropriate section. ROS: Constitutional: Denies episodes of fever and night sweats. Normal appetite. Neuro: Denies imbalance. HEENT: No recent change in voice, vision or hearing. Resp: No cough, wheeze or hemoptysis. CVS: No palpitation, PND or orthopnea. GI: Denies dysgeusia. Denies symptoms of stomatitis. Denies dysphagia and odynophagia. Denies reflux, n/v. : Denies dysuria or gross hematuria. Endo: Denies hot flashes. Denies polyuria and polydipsia. Denies heat and cold intolerance. Musculoskeletal: Denies bone, back, joint and muscular pain. Derm: Denies rash. Denies jaundice and diffuse pruritis. Heme: Denies unusual bleeding and unexplained bruising. Psych: Normal mood. PHYSICAL EXAM: Vitals: Blood pressure 133/93, pulse 108, temperature 36.1 C (97 F), temperature source Temporal, height 175.3 cm (5' 9 ), weight 117 kg (258 lb). Well-appearing and in no acute distress. EYES: Sclerae are anicteric bilaterally. LYMPHATIC: There is no palpable cervical or supraclavicular adenopathy. RESPIRATORY: Normal respiratory excursion. CARDIOVASCULAR: Rhythm is regular. ABDOMEN: The abdomen is nondistended. No organomegaly. No tenderness. : He declined. Extremities: No swelling or edema. SKIN: No jaundice or rash. 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 No focal motor weakness. MUSCULOSKELETAL: No joint swelling or tenderness. No muscle wasting. LABS: Component Latest Ref Rng & Units 03/22/2022 03/25/2022 WBC 3.70 - 11.00 k/uL 6.90 RBC 4.20 - 6.00 m/uL 4.78 Hemoglobin 13.0 - 17.0 g/dL 14.9 Hematocrit 39.0 - 51.0 % 45.4 MCV 80.0 - 100.0 fL 95.0 MCH 26.0 - 34.0 pg 31.2 MCHC 30.5 - 36.0 g/dL 32.8 RDW-CV 11.5 - 15.0 % 12.3 Platelet Count 150 - 400 k/uL 170 MPV 9.0 - 12.7 fL 11.5 Neut% % 70.8 Abs Neut (ANC) 1.45 - 7.50 k/uL 4.89 Lymph% % 18.0 Abs Lymph 1.00 - 4.00 k/uL 1.24 Pitkin% % 8.0 Abs Pitkin <0.87 k/uL 0.55 Eosin% % 1.9 Abs Eosin <0.46 k/uL 0.13 Baso% % 0.4 Abs Baso <0.11 k/uL 0.03 Immature Gran % % 0.9 IMMATURE GRANS (ABS) <0.10 k/uL 0.06 NRBC /100 WBC 0.0 Absolute nRBC <0.01 k/uL <0.01 DTYPE Auto Glucose 74 - 99 mg/dL 119 (H) BUN 9 - 24 mg/dL 18 Creatinine 0.73 - 1.22 mg/dL 0.92 Sodium 136 - 144 mmol/L 140 Potassium 3.7 - 5.1 mmol/L 4.0 Chloride 97 - 105 mmol/L 104 CO2 22 - 30 mmol/L 25 Anion Gap 9 - 18 mmol/L 11 Calcium 8.5 - 10.2 mg/dL 9.6 eGFR >=60 mL/min/1.73m 96 Albumin 3.9 - 4.9 g/dL 4.4 Bilirubin, Total 0.2 - 1.3 mg/dL 0.5 Bilirubin, Conjug <0.2 mg/dL <0.2 Alkaline Phosphatase 38 - 113 U/L 44 AST 14 - 40 U/L 55 (H) ALT 10 - 54 U/L 72 (H) Protein, Total 6.3 - 8.0 g/dL 7.4 Iron 41 - 186 ug/dL 123 TIBC 232 - 386 ug/dL 346 Transferrin Saturation 15 - 57 % 36 LD 135 - 225 U/L 233 (H) AFP <11.0 ng/mL <3.0 Beta hCG Quant Tumor Marker 0 - 3 IU/L <1 Ferritin 30.3 - 565.7 ng/mL 324.0 ASSESSMENT/PLAN: (C62.12) Seminoma of descended left testis (HCC) (primary encounter diagnosis) (C77.2) 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 -Underwent non- nerve-sparing RPLND, b/l template 03/29/2017 following chemotherapy for residual radiographic disease. All LNs negative; no malignancy. Necrosis only. -No concerning symptoms or exam findings currently. -Reviewed CT results. -Just over 5 years since surgery. Plan: -Labs/CXR the OV in a year. (I82.722) Chronic deep vein thrombosis (DVT) of brachial vein of left upper extremity (HCC) (I27.82) Other chronic pulmonary embolism without acute cor pulmonale (HCC) (Z79.01) Anticoagulant long-term use Assessment: -Left brachial vein DVT. -Incidentally discovered pulmonary embolism on CT scan done about a month after his surgery. He was not on AC post-operatively, so considering PE a provoked event. Plan: -No AC indicated. 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 Plan: -Monitor. Follow up with PCP for management of blood pressure, hepatic steatosis, hyperlipidemia and other healthcare needs. Portions of this documentation were copied and pasted from previous office visit notes in order to provide a cohesive continuity of the history. The note has been reviewed and edited and updated as necessary. Caesar Alicea DO documented in this encounter [facility] 03-23-2022 Miscellaneous Notes Spoke with patient and he chose to come in this Monday so Dr. Alicea would have the results prior to/by the office visit. Asia Nuno I'd like him to get iron studies on him when here for OV 04/01. This is to see if iron level in blood has anything to do with his liver chemistry abnormalities (increased AST and ALT). Orders filed. Caesar Alicea DO documented in this encounter [facility] 03-22-2022 Note HNO ID: [id number] Author: RT Vianca(R) Service: ? Author Type: Multiple Drum Sander Helper Type: Progress Notes Filed: 03/22/2022 3:41 PM Note Text: Radiology Service Progress Note DATE OF SERVICE: March 22, 2022 TIME: 3:40 PM PATIENT IDENTITY VERIFICATION COMPLETED USING TWO (2) STANDARD IDENTIFIERS: Name and Date of confirmed by patient verbally. FALL SCREENING: Has the patient had 2 falls in the last year or 1 fall with injury or currently using an Ambulatory Assistive Device (Walker, Cane, Wheelchair, Crutches, etc.)? No PATIENT GENDER DATA: Male PATIENT RELEVANT IMPLANT DATA REVIEWED: Yes ALLERGIES: Reviewed and unchanged CONTRAST ALLERGY: NO. EXAM: CT -CONTRAST INDUCED NEPHROPATHY RISK FACTORS: Not applicable CREATININE: Creatinine Date Value Ref Range Status 03/22/2022 0.92 0.73 - 1.22 mg/dL Final 09/13/2021 0.91 0.73 - 1.22 mg/dL Final 03/01/2021 0.81 0.73 - 1.22 mg/dL Final Estimated Glomerular Filtration Rate Date Value Ref Range Status 03/22/2022 96 >=60 mL/min/1.73m? Final Comment: Estimated Glomerular Filtration Rate (eGFR) is calculated using the 2020 CKD-EPI creatinine equation. This equation utilizes serum creatinine, sex, and age as parameters. The creatinine assay has traceable calibration to isotope dilution-mass spectrometry. Refer to KDIGO guidelines for clinical interpretation. In patients with unstable renal function, e.g. those with acute kidney injury, the eGFR may not accurately reflect actual GFR. eGFR- Date Value Ref Range Status 09/13/2021 >60 Final P.O.C.T. RESULTS: POC done: Yes, See Lab Tab March 22, 2022 TREATMENT: N/A PERIPHERAL IV DATA: Ambulatory: A peripheral IV was started in the Right antecubital site with a Angio cath: 22 gauge. RADIOLOGY DEPARTMENT: CT; Exam(s) Completed: Chest Abdomen Pelvis SIGNATURE: RT Abby(R) PATIENT NAME: Jaqueline Graham DATE: March 22, 2022 TIME: 3:40 PM [facility] 03-22-2022 History of Present illness Narrative Radiology Service Progress Note DATE OF SERVICE: March 22, 2022 TIME: 3:40 PM PATIENT IDENTITY VERIFICATION COMPLETED USING TWO (2) STANDARD IDENTIFIERS: Name and Date of confirmed by patient verbally. FALL SCREENING: Has the patient had 2 falls in the last year or 1 fall with injury or currently using an Ambulatory Assistive Device (Walker, Cane, Wheelchair, Crutches, etc.)? No PATIENT GENDER DATA: Male PATIENT RELEVANT IMPLANT DATA REVIEWED: Yes ALLERGIES: Reviewed and unchanged CONTRAST ALLERGY: NO. EXAM: CT -CONTRAST INDUCED NEPHROPATHY RISK FACTORS: Not applicable CREATININE: Creatinine Date Value Ref Range Status 03/22/2022 0.92 0.73 - 1.22 mg/dL Final 09/13/2021 0.91 0.73 - 1.22 mg/dL Final 03/01/2021 0.81 0.73 - 1.22 mg/dL Final Estimated Glomerular Filtration Rate Date Value Ref Range Status 03/22/2022 96 >=60 mL/min/1.73m Final Comment: Estimated Glomerular Filtration Rate (eGFR) is calculated using the 2020 CKD-EPI creatinine equation. This equation utilizes serum creatinine, sex, and age as parameters. The creatinine assay has traceable calibration to isotope dilution-mass spectrometry. Refer to KDIGO guidelines for clinical interpretation. In patients with unstable renal function, e.g. those with acute kidney injury, the eGFR may not accurately reflect actual GFR. eGFR- Date Value Ref Range Status 09/13/2021 >60 Final P.O.C.T. RESULTS: POC done: Yes, See Lab Tab March 22, 2022 TREATMENT: N/A PERIPHERAL IV DATA: Ambulatory: A peripheral IV was started in the Right antecubital site with a Angio cath: 22 gauge. RADIOLOGY DEPARTMENT: CT; Exam(s) Completed: Chest Abdomen Pelvis SIGNATURE: RT Abby(R) PATIENT NAME: Jaqueline Graham DATE: March 22, 2022 TIME: 3:40 PM documented in this encounter [facility] 03-15-2022 Miscellaneous Notes Scheduled as directed. Asia Nuno Pt. Scheduled for appt. 03/18 @ 3:10 pm, has been rescheduled for CT and labs. Please reschedule for 04/01@ 3:30 pm Pt. Aware. Janis Botello LPN documented in this encounter [facility] 09-16-2021 Note HNO ID: [id number] Author: Caesar Alicea, DO Service: ? Author Type: Physician Type: Progress Notes Filed: 09/17/2021 2:29 PM Note Text: Diagnoses: 1) pT1 N3 M1a stage IIIC good risk seminoma. 2) Left brachial vein DVT. 3) PE 04/25/2017. HPI: The patient is a 59 yo male with PMH significant for HTN, hyperlipidemia, GERD, hypothyroidism and melanoma (10/2014; back; 2.5 mm thick; no ulceration). He developed rather acute onset of left testicular swelling and tenderness the first week of October 2016. He was seen by his PCP for evaluation and quickly referred to Dr. Sales. CT A/P 11/01/2016 performed with IV contrast demonstrated a 3.9 x 2.6 cm soft tissue density in the region of the lower mediastinum is adjacent to the esophagus. There was a 1.2 x 1.2 cm hypodensity in the left lobe of the liver potentially representing a cyst. Otherwise there was diffuse atherosclerotic calcification abdominal aorta noted. There was no aneurysm. There was retroperitoneal lymphadenopathy with enlarged nodes greater then 10-15 mm in short axis. The largest conglomerate contreras mass measured 9.5 x 6.9 cm. This was noted at the level of the left renal hilum. There was a 3.1 x 2.9 cm inhomogeneous enhancing mass in the left scrotum. A non-contrast enhanced CT of the chest performed the same day demonstrated within the inferior aspect of the lingular lobe there was a small focus of low attenuating but somewhat rounded density measuring 1.1 x 1.1 cm. There was a large posterior mediastinal mass pushing into the posterior aspect of the manda measuring 8.0 x 7.0 x 4.0 cm. This mass also push the esophagus anteriorly. Serum tumor markers performed on the same day (11/01/2016) revealed an LDH of 746. AFP was 2.1. Beta hCG was 94. The patient underwent a left radical orchiectomy on 11/04/2016. Pathology: TESTIS - RADICAL ORCHIECTOMY CANCER SUMMARY: Serum Tumor Markers: Alpha-fetoprotein (AFP) ? within normal limits Beta-subunit of human chorionic gonadotropin (B-hCG) elevation ? 94 mIU/mL (normal 0-3) Lactate dehydrogenase (LDH) elevation ? 746 U/L (normal 87-241). Specimen Laterality ? left testicle Tumor Focality - unifocal Tumor Size ? 5 x 3 x 4 cm Macroscopic Extent of Tumor ? confined to the testes Histologic Type ? seminoma, classic type. Margins: Spermatic cord margin ? uninvolved by the tumor Other margins - uninvolved by the tumor Microscopic Tumor Extension ? confined to the testes Lymph-Vascular Invasion - absent Regional Lymph Nodes: No nodes submitted or found. Distant Metastasis ? Not applicable Additional Pathologic Findings ? 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 PATHOLOGIC STAGE: pT1 pNx Mx S2. Previous therapy: 1) BEP x2 cycles (days 1-5 cycle #1 at [facility] because of scheduling issues here in office; received day 8 and 15 bleomycin here). 2) EP x2 cycles. Bleomycin stopped after second cycle due to noticeable dyspnea on exertion. PFTs and diffusion capacity (01/13/2017) study. 3) Underwent a a non- nerve-sparing RPLND, b/l template 03/29/2017. All LNs negative; no malignancy. Necrosis only. He developed swelling and warmth of the medial distal left upper extremity several days prior to starting cycle #4. Duplex ultrasound 01/24/2017 demonstrated brachial vein DVT. He started on Xarelto due to extensiveness of the thrombus. Was seen by vascular medicine preoperatively. Advised to hold Xarelto 5 days before surgery and not pursue full anticoagulation postoperatively. Incidental diagnosis of pulmonary embolism when he was seen in the ER at [facility] on 04/25/2017 for abdominal pain. Initial abdominopelvic CT scan revealed what might have been clot in the right lower lung. Subsequent CTA of the chest confirmed this. Previous CT of the abdomen and pelvis was performed at [facility] on 08/27/2019 as ordered by his PCP as part of workup for hypertension-- CT A/P 08/27/2019: FINDINGS: The visualized lung bases are unremarkable. The visualized portions of the heart are within normal limits. There is hepatomegaly with diffuse hepatic enlargement. Normal gallbladder and extrahepatic biliary system. Normal spleen. Normal pancreas. Normal bilateral adrenal glands. Normal right kidney. Mild hydronephrosis of the left kidney. Normal visualized stomach. Normal small intestine. There are multiple colonic diverticula consistent with diverticulosis. The appendix is visualized and appears normal. There is diffuse atherosclerotic calcification of the abdominal aorta with elongation and tortuosity, but without a demonstrated aneurysm. Normal inferior vena cava. There are postoperative changes with surgical clips in the retroperitoneum. No new lymphadenopathy. Normal urinary bladder. There is no free fluid in the abdomen or pelvis. Postoperative changes of the abdominal wall. Status post left orchiectomy. (more content not included)... [facility] documented as of this encounter (statuses as of 03/14/2022) [facility]05-10-2017 History of Past illness Narrative* Problem Noted Date Resolved Date Testis cancer 03/29/2017 06/26/2017 Acute deep vein thrombosis ( DVT) of brachial vein of left upper extremity 03/07/2017 04/21/2017 Malignant neoplasm of descended left testis 01/201706/26/2017 documented as of this encounter (statuses as of 03/15/2022) [facility]-10[facility]2017 History of Past illness Narrative* Problem Noted Date Resolved Date Testis cancer 03/29/2017 06/26/2017 Acute deep vein thrombosis ( DVT) of brachial vein of left upper extremity 03/07/2017 04/21/2017 Malignant neoplasm of descended left testis 04/0 01/201706/26/2017 documented as of this encounter (statuses as of 03/23/2022) [facility]2017 History of Past illness Narrative* Problem Noted Date Resolved Date Testis cancer 03/29/2017 06/26/2017 Acute deep vein thrombosis ( DVT) of brachial vein of left upper extremity 03/07/2017 04/21/2017 Malignant neoplasm of descended left testis 04/0 01/201706/26/2017 documented as of this encounter (statuses as of 03/23/2022) [facility]2017 History of Past illness Narrative* Problem Noted Date Resolved Date Testis cancer 03/29/2017 06/26/2017 Acute deep vein thrombosis ( DVT) of brachial vein of left upper extremity 03/07/2017 04/21/2017 Malignant neoplasm of descended left testis 04/0 01/201706/26/2017 documented as of this encounter (statuses as of 03/23/2022) [facility]2017 History of Past illness Narrative* Problem Noted Date Resolved Date Testis cancer 03/29/2017 06/26/2017 Acute deep vein thrombosis ( DVT) of brachial vein of left upper extremity 03/07/2017 04/21/2017 Malignant neoplasm of descended left testis 04/0 01/201706/26/2017 documented as of this encounter (statuses as of 04/01/2022) [facility] Appointment Date:12/21/2021 03:40:00 PM Scheduled Provider:GAB CORBETT APRN, CNP Location:[facility] Appointment Type:PC OV Follow Up Diagnostic Tests Pending * Testosterone, Free and Total 12/16/21 [facility] Evaluation + Plan note Future Appointments Appointment Date:02/22/2022 04:00:00 PM Scheduled Provider:GAB CORBETT APRN, CNP Location:[facility] Appointment Type:PC OV Controlled Medication Appointment Date:06/21/2022 04:00:00 PM Scheduled Provider:GAB CORBETT APRN, CNP Location:[facility] Appointment Type:PC OV Follow Up Diagnostic Tests Pending * Testosterone, Free and Total 02/09/22 Future Scheduled Tests Laboratory* Testosterone, Free and Total 06/20/22 * Thyroid Stimulating Hormone 06/20/22 * Free T4 06/20/22 * Complete Blood Count 06/20/22 * Lipid Profile 06/20/22 * Complete Metabolic Panel 06/20/22 * Sex Hormone Binding Glb 06/20/22 [facility] Evaluation + Plan note Future Appointments Appointment Date:11/25/2022 03:40:00 PM Scheduled Provider:GAB CORBETT METAL BUR[employer] TRANSITION TEACHER Location:[facility] Appointment Type:PC OV Controlled Medication Appointment Date:01/26/2023 03:40:00 PM Scheduled Provider:GAB CORBETT METAL BURRER - TRANSITION TEACHER Location:[facility] Appointment Type:PC OV Follow Up Future Scheduled Tests Laboratory* Sex Hormone Binding Glb 02/21/23 * Prostate Specific Antigen 01/25/23 * Prostate Specific Antigen 05/24/22 * Prostate Specific Antigen 02/21/23 * Thyroid Stimulating Hormone 01/25/23 * Free T4 01/25/23 * Complete Blood Count 01/25/23 * Lipid Profile 01/25/23 * Microalbumin Level Urine 01/25/23 * Testosterone, Free and Total 02/21/23 * Complete Metabolic Panel 01/25/23 [facility] Evaluation + Plan note Future Appointments Appointment Date:11/25/2022 03:40:00 PM Scheduled Provider:GAB CORBETT APRN - TRANSITION TEACHER Location:[facility] Appointment Type:PC OV Controlled Medication Appointment Date:01/26/2023 03:40:00 PM Scheduled Provider:GAB CORBETT METAL BURRER - TRANSITION TEACHER Location:[facility] Appointment Type:PC OV Follow Up Future Scheduled Tests Laboratory* Sex Hormone Binding Glb 02/21/23 * Prostate Specific Antigen 09/08/22 * Prostate Specific Antigen 01/25/23 * Prostate Specific Antigen 05/24/22 * Prostate Specific Antigen 02/21/23 * Thyroid Stimulating Hormone 01/25/23 * Free T4 01/25/23 * Complete Blood Count 09/08/22 * Complete Blood Count 01/25/23 * Lipid Profile 01/25/23 * Microalbumin Level Urine 01/25/23 * Testosterone, Free and Total 02/21/23 * Complete Metabolic Panel 09/08/22 * Complete Metabolic Panel 01/25/23 [facility] Evaluation + Plan note Future Appointments Appointment Date:09/18/2023 02:00:00 PM Scheduled Provider:GAB CORBETT APRN - TRANSITION TEACHER Location:[facility] Appointment Type:PC OV Diagnostic Tests Pending * Renin, Plasma 09/06/23 Future Scheduled Tests Laboratory* Sex Hormone Binding Glb 02/21/23 * Prostate Specific Antigen 09/08/22 * Prostate Specific Antigen 02/21/23 * Complete Blood Count 09/08/22 * Microalbumin Level Urine 07/29/23 * Testosterone, Free and Total 02/21/23 * Complete Metabolic Panel 09/08/22 [facility] Evaluation + Plan note Future Appointments Appointment Date:03/19/2024 03:20:00 PM Scheduled Provider:GAB CORBETT APRN - TRANSITION TEACHER Location:[facility] Appointment Type:PC OV Follow Up Future Scheduled Tests Laboratory* Sex Hormone Binding Glb 02/21/23 * Renin, Plasma 03/19/24 * Prostate Specific Antigen 03/19/24 * Prostate Specific Antigen 02/21/23 * Thyroid Stimulating Hormone 03/19/24 * Free T4 03/19/24 * A1C Hemoglobin 03/19/24 * Complete Blood Count 03/19/24 * Lipid Profile 03/19/24 * Albumin/Creatinine Ratio, Random Urine 03/19/24 * Microalbumin Level Urine 07/29/23 * PTH, Intact 03/19/24 * Vitamin D Level 03/19/24 * Testosterone, Free and Total 02/21/23 * Complete Metabolic Panel 03/19/24 Radiology* XR Elbow Minimum 3 Views Right 10/16/23 * XR Shoulder Minimum 2 Views Right 10/16/23 [facility] Evaluation note* Diagnosis Seminoma of descended left testis (HCC)- Primary 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) Secondary and unspecified malignant neoplasm of intra-abdominal lymph nodes Metastasis to mediastinal lymph node (HCC) Secondary and unspecified malignant neoplasm of intrathoracic lymph nodes [facility]* Diagnosis Seminoma of descended left testis (HCC) 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 course Narrative No data available for this section [facility] Hospital Discharge instructions No data available for this section [facility] Progress note No data available for this section [facility] Advance Directives No Advanced Directives Records FoundDocuments on File Type Date Recorded Patient Stock Lifter Expl anation Advance Directive(s) 03/28/2017 9:20 AM Advance Directive(s) 03/28/2017 12:09 PM Advance Directive(s) 03/28/2017 12:11 PM Advance Directive(s) 12/27/2016 12:30 PM Advance Directive(s) 12/21/2016 4:35 PM Documents on File Type Date Recorded Patient Stock Lifter Expl anation Advance Directive(s) 03/28/2017 9:20 AM Advance Directive(s) 03/28/2017 12:09 PM Advance Directive(s) 03/28/2017 12:11 PM Advance Directive(s) 12/27/2016 12:30 PM Advance Directive(s) 12/21/2016 4:35 PM Reason for Referral Specialty Diagnoses / Procedures Referred By Greer walter Referred To Contact CT IMAGING Diagnoses Seminoma of descended left testis (HCC) 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) Procedures CT CHEST W IVCON CAT SCAN OF CHEST CONTRAST Caesar Alicea DO [address] [place] [address] Ct Imaging Referral ID Status Reason Start Date Expiration Date V isits Requested Visits Authorized [id number] Closed Auto-Generate d Referral 09/16/2021 03/30/2022 2 2 Specialty Diagnoses / Procedures Referred By Greer walter Referred To Contact CT IMAGING Diagnoses Seminoma of descended left testis (HCC) 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) Procedures CT ABD/PEL W IVCON CT ABD & PELVIS W/CONTRAST Caesar Alicea, DO [address] [place] [address] Ct Imaging Referral ID Status Reason Start Date Expiration Date V isits Requested Visits Authorized [id number] Closed Auto-Generate d Referral 02/28/2022 03/30/2022 1 1 Summary Purpose Family History No Family History Records Found No data available for this section No data available for this section No data available for this section No Family History Records Found Additional Source Comments Source Comments (unrecognize d section and content) In the event this informatio n is protected by the Federal Confidentiality of Alcohol and Drug Abuse Patient Records regulations: The Federal rules restrict any use of the information to criminally investigate or prosecute any alcohol or drug abuse patient.[facility] the event this information is protected by the Federal Confidentiality of Alcohol and Drug Abuse Patient Records regulations: The Federal rules restrict any use of the information to criminally investigate or prosecute any alcohol or drug abuse patient.[facility] the event this information is protected by the Federal Confidentiality of Alcohol and Drug Abuse Patient Records regulations: The Federal rules restrict any use of the information to criminally investigate or prosecute any alcohol or drug abuse patient.[facility] the event this information is protected by the Federal Confidentiality of Alcohol and Drug Abuse Patient Records regulations: The Federal rules restrict any use of the information to criminally investigate or prosecute any alcohol or drug abuse patient.[facility] the event this information is protected by the Federal Confidentiality of Alcohol and Drug Abuse Patient Records regulations: The Federal rules restrict any use of the information to criminally investigate or prosecute any alcohol or drug abuse patient.[facility] the event this information is protected by the Federal Confidentiality of Alcohol and Drug Abuse Patient Records regulations: The Federal rules restrict any use of the information to criminally investigate or prosecute any alcohol or drug abuse patient.[facility] Care Teams (unrecognized sec tion and content) Extruder Relationship Specialty Start Date End Date Gab Corbett, TRANSITION TEACHER [address] [place] [address] PCP - General [facility] 09/19/13 Extruder Relationship Specialty Start Date End Date Gab Corbett, TRANSITION TEACHER [address] [place] [address] PCP - General [facility] Practice 09/19/13 Extruder Relationship Specialty Start Date End Date Gab Corbett, TRANSITION TEACHER [address] [place] [address] PCP - General [facility] Practice 09/19/13 Extruder Relationship Specialty Start Date End Date Gab Corbett, TRANSITION TEACHER [address] [place] [address] PCP - General Family Practice 09/19/13 Reason for Visit (unrecogniz ed section and content) Reason Comments Radiology CT Specialty Diagnoses / Procedures Referred By Greer walter Referred To Contact CT IMAGING Diagnoses Seminoma of descended left testis (HCC) 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) Procedures CT CHEST W IVCON CAT SCAN OF CHEST CONTRAST Caesar Alicea, DO [address] [place] [address] Ct Imaging Referral ID Status Reason Start Date Expiration Date V isits Requested Visits Authorized [id number] Closed Auto-Generate d Referral 09/16/2021 03/30/2022 2 2 Reason Comments Follow Up Reason Comments Established Patient (unrecognized sect ion and content) No Status Records FoundNo Status Records Found INFORMATION SOURCE (unrecogn ized section and content) DATE CREATED AUTHOR AUTHOR'S ORGANIZ ATION 01/26/2024 [facility] ([place]) Care Team (unrecognized sect ion and content) Care Team Personnel Name: GAB CORBETT METAL BURRER - TRANSITION TEACHER Position: P4 Advanced Practice Nurse Med Service: Employed Provider Member Role: Primary Care Physician Address: Address: [address] [place] [id number] Care Team Related Persons Name: EDMUND GRAHAM Address: Home [address] [place], [place] [id number] Care Team Personnel Name: ARICGAB SON Vinnie METAL BURRER - TRANSITION TEACHER Position: P4 Advanced Practice Nurse Med Service: Employed Provider Member Role: Primary Care Physician Address: Address: [address] [place] [id number] Care Team Related Persons Name: EDMUND GRAHAM Address: Home [address] [place], [place] [id number] FOR RECORDS PERTAINING TO PATIENTS WHO ARE OR HAVE BEEN ENROLLED IN A CHEMICAL DEPENDENCY/SUBSTANCEABUSE PROGRAM, SOME INFORMATION MAY BE OMITTED. This clinical summary was aggregated from multiple sources. Caution should be exercised in using it in the provision of clinical care. This summary normalizes information from multiple sources, and as a consequence, information in this document may materially change the coding, format and clinical context of patient data. In addition, data may be omitted in some cases. CLINICAL DECISIONS SHOULD BE BASED ON THE PRIMARY CLINICAL RECORDS. [facility] [employer] provides no warranty or guarantee of the accuracy or completeness of information in this document.
[2024-02-02 08:13] LABS: Absolute Lymphocyte Count 1.78 X10^3/uL (0.83-4.51); Absolute Neutrophil Count 3.4 X10^3/uL (2.0-7.7); Basophil# 0.04 X10^3/uL; Basophil% 0.6 % (0-1); Eosinophil# 0.13 X10^3/uL; Eosinophils% 2.1 % (0-5); Hematocrit 40.6 % (40-54); Hemoglobin 13.7 g/dL (13.0-16.5); Lymphocyte # 1.78 X10^3/ul (0.83-4.51); Lymphocyte % 28.8 % (19-41); Mean Corp Hgb Conc 33.7 g/dL (32-36); Mean Corpuscular Volume 94.9 fL (80-94); Mean Platelet Vol. 11.8 fl (6.2-12.0); Monocyte# 0.67 X10^3/uL; Monocyte% 10.9 % (0-10); NRBC Flagged by Analyzer 0 % (0-5); Neutrophil # 3.35 X10^3/uL (2.7-7.7); Neutrophil % 54.4 % (47-70); Platelet Count 171 K/mm3 (150-450); RBC Distribution Width CV 12.1 % (11.6-14.6); Red Blood Count 4.28 M/mm3 (4.6-6.2); White Blood Count 6.2 K/mm3 (4.4-11.0)
[2024-02-02 08:35] LABS: Anion Gap 7 (5-15); BUN 16 mg/dL (7-18); BUN/Creat Ratio 13.4 RATIO (10-20); Calcium,Total 9.1 mg/dL (8.5-10.1); Chloride 108 mmol/L (98-107); Creatinine, Serum 1.19 mg/dL (0.70-1.30); EST Glomerular Filtration Rate 66 mL/min (>60); Est Glom Filt Rate - Afr Amer 80 mL/min (>60); Glucose 110 mg/dL (74-106); Potassium 3.9 mmol/L (3.5-5.1); Sodium Level 139 mmol/L (136-145)
== END | disposition home or self-care (01) ==
LOC: PSN 07:28
PROVIDERS: PCP Nurse Practitioner Family; Referring Provider Student in an Organized Health Care Education/Training Program; Visit Provider Student in an Organized Health Care Education/Training Program
DX: Z01.818 Encounter for other preprocedural examination (principal); Z01.810 Encounter for preprocedural cardiovascular examination
CPT/HCPCS: 36415; 80048; 85025; 93005

== ENCOUNTER 2024-03-12 08:30 | Outpatient (RCR) | payer BC, SELFPAY ==
--- NOTE | 2024-02-20 11:08 | HP.PTEVAL_ITS ---
Patient's Visit Information Visit Information Visit Information: JAQUELINE PEREYRA is a 63 year old M referred to Physical Therapy by Dr. Ravi Veliz DO with a diagnosis of R rot cuff repair 02/03/24. Date of Evaluation: 02/20/24 Physical Therapist: Sanford Bourgeois, PT, ATC Visit Plan Frequency: 2-3x /Week Duration: 2-4 Months Plan: R shoulder PROM and mobs for 6 weeks. Progress to AROM at that time. Begin strengthening at 10-12 weeks when ordered by surgeon. Subjective Subjective: DOS: 02/03/24. Pt reports he had his R rotator cuff repair performed at that time. Pt reports back in September, he was tossing a tote when he [id number] a popping sensation is his R arm. After an MRI, it was revealed he tore his biceps tendon and rotator cuff. Pt reports he is glad to have had the surgery at this time secondary to most of the pain being gone. Pt reports he has been wearing his sling sparingly at this time but was told by his surgeon to wear it more often, and to be very careful with all movements. Pt denies tingling or numbness in R UE. Pt reports no sleep difficulty at this time secondary to pain. 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 Pt is R hand dominant. 1/10 pain at rest, 3/10 at worst. Pain R shoulder: Pain Intensity (Out of 10): 1 Pain Intensity Range: 3 Objective Objective: Neuro: B UE sensation is WNL to light touch. B bicipital reflex= 1/3 Observation: Incisions are still healing. No signs of infection. ROM: L shoulder flex= 160, abd= 160, ER= 70, IR= WNL; R shoulder flex= 110, abd= 110 degrees MMT: L shoulder flex= 20, abd= 26, ER= 21, IR= 24 #F; R shoulder not tested Balance/Special Test Scores Quick DASH Score: 72.7250 Goals Goal 1:: Decrease R shoulder pain x 50% to aid with IADL's Goal Time Frame: 6-8 Weeks Goal 2:: Increase R shoulder flex and abd ROM x 30 degrees to aid with overhead lifting activity Goal Time Frame: 6-8 Weeks Goal 3:: Increase R shoulder strength to 90% of L shoulder strength to aid with RTW Goal Time Frame: 8-12 Weeks Goal 4:: I with HEP Goal Time Frame: 4-6 Weeks Rehabilitation Potential Physical Therapy Diagnosis: Pt has R shoulder pain, weakness, and limited ROM secondary to R rot cuff repair Rehabilitation Potential: Good Anticipated Interventions Patient/Client Instruction: Educate patient on: Condition and Plan of Care For the Purpose of:: To facilitate caregiver knowledge Therapeutic Exercise to Include: Strength training, Flexibilty training, Passive ROM, Active ROM and Scapular Strength/Stabilization For the Purpose of:: To decrease pain, To increase ROM and To improve muscle performance and motor function Cryotherapy (ice pack, ice massage): Yes For the Purpose of:: To decrease pain Text: Thank you for the opportunity to evaluate your patient. For Medicare and Medicare HMO plans, please review the plan of care and approve it. It will need to be FAXED BACK to us at [phone] for Medicare purposes. For Medicare only, by signing this I certify the plan of care. Please let me know if there are questions or concerns regarding this plan of care. Physician Signature: Date:
== END 2024-03-12 19:00 | disposition home or self-care (01) ==
LOC: PT 08:30
PROVIDERS: PCP Nurse Practitioner Family; Referring Provider Student in an Organized Health Care Education/Training Program; Visit Provider Student in an Organized Health Care Education/Training Program
DX: S46.111D Strain of muscle, fascia and tendon of long head of biceps, right arm, subsequent encounter (principal); M75.41 Impingement syndrome of right shoulder; M19.011 Primary osteoarthritis, right shoulder
CPT/HCPCS: 97110; 97140; 97161

== ENCOUNTER 2024-05-30 14:56 | Outpatient (RCR) | payer BC, SELFPAY ==
--- NOTE | 2024-05-30 15:56 | HP.PTEVAL ---
Patient's Visit Information Visit Information Visit Information: JAQUELINE MARAVILLA is a 63 year old M referred to Physical Therapy by Dr. Ravi Veliz, with a diagnosis of Impingement of the Right Shoulder. Date of Evaluation: 05/30/24 Physical Therapist: Krystyna Lua DPT Visit Plan Frequency: 1x/Week Duration: 1 Week Plan: Patient was given HEP for scapular s/s and educated on postural concerns for impingement- will perform and call if questions. Subjective Subjective: Patient reports that he had right RTC surgery in late January by Dr. Veliz- went through therapy with Keke maravilla ahead of the curve- 1x a week and that lasted 4 weeks and ROM was there quickly- follow up 3 weeks ago and the only issue he had was that when he pushed a button forwards it has a click- Dr. Veliz thinks that its scar tissue. He is here to have an assessment to see if he needs strength. He feels that he is 80-90% back to normal. Right hand dominate. He feels that he has restricted it and it will take time to regain strength. He has no shoulder pain. Objective Objective: Posture: forward head, rounded shoulders- can correct with verbal cues Gait: no deviation- good arm swing and trunk rotation Palpation: not tender ROM: WNL in all planes Strength: Scap: fair- shoulder: 5/5 throughout, elbow: 5/5, Stationary Engineer: equal Special Tests R Shoulder Drop Sign - IS Test: Negative R Shoulder Empty Can - SS: Negative R Shoulder Belly Press - SupScap: Negative R Shoulder Neer - Impingement: Positive R Shoulder Bar[place]ona Curt - Impingement: Positive Balance/Special Test Scores Quick DASH Score: 0 Goals Goal 1:: Patient will be I with HEP Rehabilitation Potential Physical Therapy Diagnosis: Patient presents with decreased scap s/s leading to impingement of the right shoulder Rehabilitation Potential: Excellent Anticipated Interventions Text: Thank you for the opportunity to evaluate your patient. For Medicare and Medicare HMO plans, please review the plan of care and approve it. It will need to be FAXED BACK to us at [phone] for Medicare purposes. For Medicare only, by signing this I certify the plan of care. Please let me know if there are questions or concerns regarding this plan of care. Physician Signature: Date:
--- NOTE | 2024-05-30 15:57 | HP.PTDCSUM ---
Discharge Summary D/C summary: It has been my pleasure to treat JAQUELINE Almaguer WAY referred by Dr. Ravi Veliz DO, with the diagnosis of Impingement of the Right Shoulder for a total of 1 visit(s). Discharge Date: Please see the following information for a summary of their discharge status. Goals Goal 1:: Patient will be I with HEP Plan Plan: Patient was given HEP for scapular s/s and educated on postural concerns for impingement- will perform and call if questions. D/C Information d/c sentence: If there are questions or concerns regarding this patient's physical therapy, please feel free to call me at [phone]. Thank you for the referral of this patient. Sincerely, Krystyna Lua, BONNIET Balance/Gait/Functional tests Balance/Special Test Scores Quick DASH Score: 0
== END 2024-05-30 19:00 | disposition home or self-care (01) ==
LOC: PT 14:56
PROVIDERS: PCP Nurse Practitioner Family; Referring Provider Student in an Organized Health Care Education/Training Program; Visit Provider Student in an Organized Health Care Education/Training Program
DX: S46.011D Strain of muscle(s) and tendon(s) of the rotator cuff of right shoulder, subsequent encounter (principal); M19.011 Primary osteoarthritis, right shoulder; M75.41 Impingement syndrome of right shoulder
CPT/HCPCS: 97110; 97161

== ENCOUNTER 2024-07-01 06:52 | Outpatient (CLI) | payer SELFPAY ==
--- NOTE | 2024-07-01 06:58 | CT_ITS ---
STUDY: CT CHEST WITHOUT CONTRAST REASON FOR EXAM: Male, 63 years old. CKD, HYPERTENSION,IFG RADIATION DOSAGE (If Supplied By Facility): CTDIvol = ( 12.19 ) mGy, DLP = ( 243.79 ) mGycm TECHNIQUE: Transaxial imaging was performed without the administration of intravenous contrast material. Cardiac over read examination. Individualized dose optimization techniques were used for this CT. COMPARISON: Comparison is made with prior study dated November 01, 2016. FINDINGS: CHEST Increased linear markings in the posterior superior segment of the right lower lobe suggestive of scarring. There is no demonstrated pleural abnormality. There are calcifications of the coronary arteries. There are small lymph nodes within the mediastinum, which are normal in size and morphology most compatible with reactive lymph hyperplasia. Normal hilar regions. Normal unenhanced pulmonary arteries. There is atherosclerotic calcification of the aortic arch. There are multi-level degenerative changes of the thoracic spine. There is no demonstrated abnormality of the visualized upper abdomen. CT/Limited Chest CT Cardiac Only IMPRESSION: Coronary artery calcification. Electronically Signed: Washington Walker MD at 9:28 EDT ,
--- NOTE | 2024-07-01 10:13 | CA.SCORE ---
Calcium Scoring Date of Study:: 07/01/24 Indications Indications: Hypertension Coronary Calcium Scoring: High-resolution Computed Tomographic imaging of the chest was performed on [07/01/2024], with particular attention paid to the coronary arteries. Images from the examination were analyzed for the presence and extent of coronary artery calcification , using coronary calcium quantification software. The patient tolerated the procedure well and there were no complications. The results of the coronary calcification analysis are provided below. Findings Coronary Artery Left Main (LM): 1.59 Left Anterior Descending (LAD): 170 Left Circumflex (LCX): 9.7 Right Coronary Artery (RCA): 0 Total Agatston Score: 181.29 Percentile Rankin-7 5th percentile Calcium Scoring Interpretation: Different methods to categorize the overall amount of coronary plaque. Overall amount CAC SIS Visual of coronary plaque P1 Mild -100 <2 1-2 vessels with mild amount of plaque P2 Moderate 101-300 3-4 1-2 vessels with moderate amount, 3 vessels with mild amount of plaque P3 Severe 301-999 5-7 3 vessels with moderate amount, 1 vessel with severe amount of plaque P4 Extensive >1000 >8 2-3 vessels with severe amount of plaque Calcium Score: Moderate: 1-2 vessels w/moderate amt, 3 vessels w/mild amt of plaque Conclusion: 1 vessel noted with a moderate amount of plaque present.
== END 2024-07-01 23:59 | disposition home or self-care (01) ==
LOC: CT 06:54
PROVIDERS: PCP Nurse Practitioner Family
DX: I12.9 Hypertensive chronic kidney disease with stage 1 through stage 4 chronic kidney disease, or unspecified chronic kidney disease (principal); N18.9 Chronic kidney disease, unspecified; E78.5 Hyperlipidemia, unspecified; R73.01 Impaired fasting glucose; I25.10 Atherosclerotic heart disease of native coronary artery without angina pectoris
CPT/HCPCS: 75571; 76380

== ENCOUNTER 2024-12-01 14:51 | Emergency (ER) | payer BC, SELFPAY ==
[2024-12-01 14:52] VITALS: BP 166/115; PULSE 109; RESP 18; TEMP 37.1; O2SAT 95; BMI 36.6
--- NOTE | 2024-12-01 15:17 | EX.ED.DYSGE1 ---
HPI <KOURTNEY Perkins - Last Filed: 12/01/24 17:42> History of Present Illness Chief Complaint: Nausea/Vomiting Narrative Narrative: 64-year-old male with past medical history of HTN, HLD states he was diagnosed with C. difficile this week and started oral vancomycin. He has had intermittent diarrhea since April 2024 and it worsened recently and his PCP tested his stool. He started taking oral vancomycin 3 days ago but the frequency of his loose watery stool has not abated and today he started vomiting. He feels weak, shaky and dehydrated. He is keeping down some Pedialyte. He has no abdominal pain. He has a history of abdominal surgery due to testicular cancer with metastasis in 2017 and then a subsequent ventral hernia repair. [facility] <KOURTNEY Perkins - Last Filed: 12/01/24 17:42> [facility] Medical History (Updated 12/01/24 @ 16:37 by KOURTNEY Perkins) Alcohol use Thyroid disease Arthritis Back pain Injury of head and neck Former smoker CPAP (continuous positive airway pressure) dependence History of pain when walking Hypertension Personal history of pulmonary embolism Hypothyroid GERD (gastroesophageal reflux disease) Hyperlipidemia History of melanoma Seminoma Dyslipidemia Testicular cancer Pulmonary embolism Home Medications ?Medication ?Instructions ?Recorded ?Last Taken ?Type ascorbic acid (vitamin C) 500 mg 1,000 mg PO DAILY 11/03/16 04/25/17 08:00 History chewable tablet fenofibrate 160 mg tablet 160 mg PO DAILY 11/03/16 04/24/17 22:00 History fexofenadine 60 mg-pseudoephedrine 1 ea PO DAILY 11/03/16 04/25/17 08:00 History ER 120 mg tablet,ext.release,12 hr levothyroxine 25 mcg tablet 75 mcg PO DAILY 11/03/16 04/20/18 06:00 History omeprazole 40 mg capsule,delayed 40 mg PO DAILY 11/03/16 04/20/18 06:00 History release multivitamin 1 ea PO DAILY 11/22/16 04/25/17 08:00 History acetaminophen 325 mg tablet 650 mg (2 x 325 mg) PO Q6H PRN PRN 04/26/17 Unknown Rx Mild Pain (scale 0-3)/T>100.7 fluticasone propionate 50 2 spray intranasal QDAY 03/23/18 Unknown History mcg/actuation nasal spray,suspension amlodipine 10 mg tablet 10 mg PO DAILY 10/16/19 10/22/19 07:00 History meloxicam 15 mg tablet (Mobic) 15 mg PO PRN PRN Pain 02/02/22 Unknown History Allergy/AdvReac Type Severity Reaction Status Date / Time adhesive tape AdvReac NEEDS Verified 12/01/24 14:52 FOLLOW-UP hydrocodone (From Vicodin) AdvReac Nausea/Vom/ Verified 12/01/24 14:52 Diarrhea Family History Father Asthma Cancer Brother Hypertension CAD (coronary artery disease) Surgical History S/P repair of ventral hernia (~04/2018) History of melanoma excision History of colonoscopy History of orchiectomy History of hip surgery Social History (Updated 05/15/18 @ 07:35 by Carly OCONNELL PA-C) Smoking Status: Former smoker alcohol intake: current alcohol intake frequency: 0-2 drinks per day ROS <KOURTNEY Perkins - Last Filed: 12/01/24 17:42> ROS ED ROS Narrative Constitutional: Negative for fever, chills. CVS: Negative for chest pain. Respiratory: Negative for shortness of breath. GI: Negative for abdominal pain. Positive for nausea, vomiting, diarrhea. : Negative for dysuria. EXAM <KOURTNEY Perkins - Last Filed: 12/01/24 17:42> Physical Exam Narrative Exam Narrative: CONST: Patient sitting in no acute distress. EYES: Normal inspection. NECK: Normal inspection. RESP: No respiratory distress, CTAB. CVS: Regular rate and rhythm, no murmur, no gallop. ABD: Soft and nontender, no guarding or rebound, nondistended. SKIN: Color normal, no rash, warm, dry, intact. EXTREMITIES: Normal appearance, no pedal edema. NEURO: Alert and answering questions appropriately. PSYCH: Normal affect. Const Vital Signs: 12/01/24 14:52 12/01/24 16:51 12/01/24 17:11 Temperature 98.8 F 98.5 F 98.5 F Temperature Source Oral Oral Pulse Rate 109 H 95 95 Respiratory Rate 18 20 H 20 H Blood Pressure 166/115 H 201/117 H 201/117 H Blood Pressure Mean 132 145 145 Pulse Ox 95 94 94 Oxygen Delivery Method Room Air Room Air <Dr. Clarence Caputo DO - Last Filed: 12/01/24 17:21> Physical Exam Const Vital Signs: 12/01/24 14:52 12/01/24 16:51 12/01/24 17:11 Temperature 98.8 F 98.5 F 98.5 F Temperature Source Oral Oral Pulse Rate 109 H 95 95 Respiratory Rate 18 20 H 20 H Blood Pressure 166/115 H 201/117 H 201/117 H Blood Pressure Mean 132 145 145 Pulse Ox 95 94 94 Oxygen Delivery Method Room Air Room Air MDM <Jaycee Pabon PA - Last Filed: 12/01/24 17:42> [facility] MDM Narrative Medical decision making narrative: History gathered from: Patient, Differential: C. difficile colitis, electrolyte derangement, JEN 64-year-old male recently started oral vancomycin for C. difficile colitis. Today he developed nausea and vomiting. He appears well and nontoxic. He was tachycardic with a heart rate of 109, otherwise unremarkable. He has no clinical signs of dehydration. His abdomen is soft without significant tenderness or distention. He was treated with IV fluids and Zofran. CBC and CMP only notable for sodium of 132, glucose 118, minimally elevated liver enzymes. Magnesium is minimally low at 1.5. He passed a p.o. challenge. The nurse informed me he was hypertensive and when I spoke with the patient he states he takes valsartan in the morning and was just prescribed a new nighttime blood pressure medication but has forgotten to take it 3 days on arrival. His hypertension is asymptomatic and I feel he can be discharged home to take his prescribed BP meds. I prescribed Zofran and recommended he follow-up with his GI doctor. Lab Data Attestation: I reviewed the patient's lab results. Labs: Laboratory Results - last 24 hr 12/01/24 15:34 WBC 7.1 RBC 4.59 L Hgb 15.0 Hct 43.1 MCV 93.9 MCH 32.7 H MCHC 34.8 RDW Std Deviation 42.4 RDW Coeff of Efrain 12.4 Plt Count 163 MPV 11.6 Immature Gran % (Auto) 0.400 Neut % (Auto) 71.0 H Lymph % (Auto) 16.6 L Kenton % (Auto) 10.9 H Eos % (Auto) 0.3 Baso % (Auto) 0.8 Absolute Neuts (auto) 5.0 Absolute Lymphs (auto) 1.18 Nucleated RBC % 0 Sodium 132 L Potassium 4.1 Chloride 100 Carbon Dioxide 23.0 Anion Gap 9 BUN 16 Creatinine 0.97 Estim Creat Clear Calc 100.57 Est GFR (MDRD) Af Amer 101 Est GFR (MDRD) Non-Af 84 BUN/Creatinine Ratio 16.6 Glucose 118 H Calcium 8.8 Magnesium 1.5 L Total Bilirubin 0.80 AST 104 H ALT 70 H Alkaline Phosphatase 71 Total Protein 7.2 Albumin 3.4 Globulin 3.8 Albumin/Globulin Ratio 0.9 <Dr. Clarence Caputo, DO - Last Filed: 12/01/24 17:21> [facility] Lab Data Labs: Laboratory Results - last 24 hr 12/01/24 15:34 WBC 7.1 RBC 4.59 L Hgb 15.0 Hct 43.1 MCV 93.9 MCH 32.7 H MCHC 34.8 RDW Std Deviation 42.4 RDW Coeff of Efrain 12.4 Plt Count 163 MPV 11.6 Immature Gran % (Auto) 0.400 Neut % (Auto) 71.0 H Lymph % (Auto) 16.6 L Kenton % (Auto) 10.9 H Eos % (Auto) 0.3 Baso % (Auto) 0.8 Absolute Neuts (auto) 5.0 Absolute Lymphs (auto) 1.18 Nucleated RBC % 0 Sodium 132 L Potassium 4.1 Chloride 100 Carbon Dioxide 23.0 Anion Gap 9 BUN 16 Creatinine 0.97 Estim Creat Clear Calc 100.57 Est GFR (MDRD) Af Amer 101 Est GFR (MDRD) Non-Af 84 BUN/Creatinine Ratio 16.6 Glucose 118 H Calcium 8.8 Magnesium 1.5 L Total Bilirubin 0.80 AST 104 H ALT 70 H Alkaline Phosphatase 71 Total Protein 7.2 Albumin 3.4 Globulin 3.8 Albumin/Globulin Ratio 0.9 Treatment and Re-Evaluation :: I have personally performed a face to face assessment of the patient and have reviewed the PEPE Note. I performed a substantive portion of the visit including all aspects of the following. My mason findings include: History: Patient presents with nausea and vomiting that began last night. Patient states he has been having diarrhea and was recently diagnosed with C. difficile colitis. Patient has been taking oral vancomycin for the past 3 days. Patient started having some nausea and vomiting last night. Patient denies any hematemesis or coffee-ground emesis. Patient states his abdomen feels upset. Patient denies any sharp stabbing pain. Patient denies any dysuria, frequency, or hematuria. Exam: Vital signs are stable except for mild tachycardia of 109. Patient is afebrile. Patient is in no acute distress. The appendix oral mucosa is pink and moist. Neck is supple. Trachea is midline. There is no JVD. Heart was regular and tachycardic. Lungs are clear and equal bilaterally. There is good respiratory rate noted. Abdomen is soft. Bowel sounds are normal. There is mild diffuse tenderness. There is no rebound or guarding noted. Cranial nerves II through XII are intact. There are no focal motor or sensory deficits. Medical Decision Making: Differential diagnosis includes dehydration, colitis, gastritis, medication side effect, electrolyte abnormality, cholecystitis, cholelithiasis, and viral illness. CBC will be obtained to assess for leukocytosis and anemia. Comprehensive metabolic profile will be obtained to assess for hepatic function, renal function, and electrolyte abnormalities. Serum magnesium level will be ordered to assess for hypomagnesemia and hypomagnesemia. Patient was given IV fluids and Zofran. CBC was reviewed and was within normal limits. Comprehensive metabolic profile was reviewed. Sodium was slightly low at 132. AST was slightly elevated at 104 and ALT was 70. Glucose was slightly elevated at 118. Remainder is within normal limits. Serum magnesium level was reviewed and was slightly low at 1.5. Patient was advised of his findings. Patient was given a p.o. challenge and was able to keep fluids down. Patient was instructed to start with a liquid diet and advance as tolerated. Patient was instructed to follow-up with his primary care physician in 5 to 7 days. Patient understood and was agreeable with plan. All questions were answered. Discharge Plan Triage Chief Complaint: Nausea/Vomiting ED Midlevel Provider: Jaycee Pabon ED Provider: Clarence Caputo Dx/Rx/DC Orders Clinical Impression: Nausea and vomiting, C. difficile diarrhea, Hypomagnesemia Instructions: Clostridium Difficile Infection, ED Vomit Diarrhea Nonspec Adult Prescriptions: No Action fluticasone propionate 50 mcg/actuation spray,suspension 2 spray INTRANASAL QDAY omeprazole 40 MG capsule 40 mg PO DAILY levothyroxine 25 MCG tablet 75 mcg PO DAILY ascorbic acid (vitamin C) 500 MG tablet,chewable 1,000 mg PO DAILY fexofenadine-pseudoephedrine 1 EACH tablet extended release 12 hr 1 ea PO DAILY fenofibrate 160 MG tablet 160 mg PO DAILY multivitamin 1 EACH tablet 1 ea PO DAILY acetaminophen 325 MG tablet 650 mg PO Q6H PRN PRN (Reason: Mild Pain (scale 0-3)/T>100.7) 0RF amlodipine 10 MG tablet 10 mg PO DAILY meloxicam [Mobic] 15 mg Tablet 15 mg PO PRN PRN (Reason: Pain) Primary Care Provider: Gab Corbett NP Referrals: Gab Corbett NP, CATALYTIC CASE OPERATOR-C [Primary Care Provider] - Activity Restrictions/Additional Instructions: Use Zofran as needed for nausea and vomiting. Continue the vancomycin to treat C. difficile. Follow-up with GI doctor. Print Language: Malay Disposition Disposition: Home, Self Care
[2024-12-01] MEDS: Ondansetron 4 MG/2 ML Vial IV (15:47)
[2024-12-01] MEDS: 0.9% Normal Saline (1000mL) 1,000 ML 999 ML IV (15:47)
[2024-12-01 15:53] LABS: Absolute Lymphocyte Count 1.18 X10^3/uL (0.83-4.51); Basophil# 0.06 X10^3/uL; Basophil% 0.8 % (0-1); Eosinophil# 0.02 X10^3/uL; Eosinophils% 0.3 % (0-5); Hematocrit 43.1 % (40-54); Lymphocyte # 1.18 X10^3/ul (0.83-4.51); Lymphocyte % 16.6 % (19-41); Mean Corp Hgb Conc 34.8 g/dL (32-36); Mean Corpuscular Hgb 32.7 pg (27.0-32.0); Mean Corpuscular Volume 93.9 fL (80-94); Mean Platelet Vol. 11.6 fl (6.2-12.0); Monocyte# 0.77 X10^3/uL; Monocyte% 10.9 % (0-10); NRBC Flagged by Analyzer 0 % (0-5); Neutrophil # 5.03 X10^3/uL (2.7-7.7); Platelet Count 163 K/mm3 (150-450); RBC Distribution Width CV 12.4 % (11.6-14.6); RBC Distribution Width SD 42.4 fl (35.1-43.9); Red Blood Count 4.59 M/mm3 (4.6-6.2); White Blood Count 7.1 K/mm3 (4.4-11.0)
[2024-12-01 16:01] LABS: ALB/GLOB Ratio 0.9 RATIO (0.9-2.4); AST(SGOT) 104 U/L (15-37); Alanine Aminotransfer ALT/SGPT 70 U/L (16-61); Albumin, Serum 3.4 g/dL (3.2-5.0); Alkaline Phosphatase 71 U/L (45-117); Anion Gap 9 (5-15); BUN 16 mg/dL (7-18); BUN/Creat Ratio 16.6 RATIO (10-20); Calcium,Total 8.8 mg/dL (8.5-10.1); Chloride 100 mmol/L (98-107); Creatinine, Serum 0.97 mg/dL (0.70-1.30); EST Glomerular Filtration Rate 84 mL/min (>60); Est Glom Filt Rate - Afr Amer 101 mL/min (>60); Estimated Creatinine Clearance 100.57 ml/min; Globulin 3.8 g/dL (2.2-4.2); Glucose 118 mg/dL (74-106); Magnesium 1.5 mg/dL (1.6-2.6); Potassium 4.1 mmol/L (3.5-5.1); Protein, Total 7.2 g/dL (6.4-8.2); Sodium Level 132 mmol/L (136-145)
[2024-12-01 16:51] VITALS: BP 201/117; PULSE 95; RESP 20; TEMP 36.9; O2SAT 94
[2024-12-01 17:11] VITALS: BP 201/117; PULSE 95; RESP 20; TEMP 36.9; O2SAT 94
--- NOTE | 2024-12-01 17:44 | ED.RN ---
KOURTNEY notified of pt BP. Pt did not take blood pressure meds tonight and was instructed by Jaycee OCONNELL to take them when he gets home.
== END 2024-12-01 17:44 | disposition home or self-care (01) ==
PROVIDERS: Physician Assistant; Emergency Provider Emergency Medicine; PCP Nurse Practitioner Family; Visit Provider Emergency Medicine
DX: R11.2 Nausea with vomiting, unspecified (principal); A04.72 Enterocolitis due to Clostridium difficile, not specified as recurrent; Z87.891 Personal history of nicotine dependence; E78.5 Hyperlipidemia, unspecified; I10 Essential (primary) hypertension; E83.42 Hypomagnesemia; Z85.47 Personal history of malignant neoplasm of testis; E03.9 Hypothyroidism, unspecified; Z79.890 Hormone replacement therapy; K21.9 Gastro-esophageal reflux disease without esophagitis

== ENCOUNTER → 2024-12-23 | Outpatient (CLI) | payer BC, SELFPAY ==
[2024-12-23 17:34] LABS: Hematocrit 41.9 % (40-54); Hemoglobin 13.8 g/dL (13.0-16.5); Mean Corp Hgb Conc 32.9 g/dL (32-36); Mean Corpuscular Hgb 32.5 pg (27.0-32.0); Mean Corpuscular Volume 98.8 fL (80-94); Mean Platelet Vol. 11.3 fl (6.2-12.0); POSITIVE COUNT YES; POSITIVE MORPHOLOGY YES; Platelet Count 234 K/mm3 (150-450); RBC Distribution Width CV 13.7 % (11.6-14.6); RBC Distribution Width SD 49.2 fl (35.1-43.9); Red Blood Count 4.24 M/mm3 (4.6-6.2); White Blood Count 9.7 K/mm3 (4.4-11.0)
[2024-12-23 17:46] LABS: Prothrombin Time (Protime)PT. 13.3 SECONDS (11.7-14.9)
[2024-12-23 18:01] LABS: Differential Indicated MANUAL DIFF
[2024-12-23 18:17] LABS: Eosinophil 1 % (0-5); Lymphocyte 29 % (19-41); Monocyte 9 % (0-10); Neutrophil-Band 3 % (0-5); Neutrophil-Segmented 58 % (47-70); Total Cells Counted 100 (MANUAL DIFF)
[2024-12-23 18:18] LABS: Absolute Lymphocyte Count 2.81 X10^3/uL (0.83-4.51); Absolute Neutrophil Count 5.9 X10^3/uL (2.0-7.7)
[2024-12-23 18:26] LABS: Ferritin 697 ng/mL (26-388); Iron 176 ug/dL (65-175); Iron Binding Capacity,Total 270 ug/dL (250-450); Lipase 86 U/L (13-75); Magnesium 1.8 mg/dL (1.6-2.6)
[2024-12-24 10:03] LABS: Hepatitis B Surface Antibody Non-Reactive; Hepatitis B Surface Antigen Non-Reactive (Nonreactive); Hepatitis C Antibody Non-Reactive (Nonreactive); Vitamin B12 388 pg/mL (211-911)
[2024-12-24 14:19] LABS: Pathologist Review Reviewed
[2024-12-25 15:07] LABS: Anti-Mitochondrial AB <20.0 Units (0.0-20.0)
[2024-12-26 17:07] LABS: AFP, Tumor Marker 3.9 ng/mL (0.0-8.4); Anti-Smooth Muscle ABS 3 Units (0-19); Cytoplasmic Ab (C-ANCA) <1:20 titer (Neg:<1:20); Hepatitis A AB, Total Negative (Negative); Hepatitis B Core Ab Total Negative (Negative); Perinuclear Ab (P-ANCA) <1:20 titer (Neg:<1:20)
== END | disposition home or self-care (01) ==
LOC: LAB 16:04
PROVIDERS: PCP Nurse Practitioner Family; Referring Provider Nurse Practitioner Acute Care; Visit Provider Nurse Practitioner Acute Care
DX: R74.01 Elevation of levels of liver transaminase levels (principal); K76.0 Fatty (change of) liver, not elsewhere classified; K76.89 Other specified diseases of liver; R19.7 Diarrhea, unspecified; Z86.0100 Personal history of colon polyps, unspecified; D49.0 Neoplasm of unspecified behavior of digestive system; F10.10 Alcohol abuse, uncomplicated
CPT/HCPCS: 36415; 82105; 82607; 82728; 82746; 83516; 83540; 83550; 83690; 83735; 84425; 85025; 85610; 86037; 86704; 86706; 86708; 86803; 87340

== ENCOUNTER → 2024-12-25 | Outpatient (CLI) | payer BC, SELFPAY ==
[2024-12-27 15:07] LABS: Pancreatic Elastase, Fecal 575 (>200)
[2024-12-28 02:07] LABS: Calprotectin, Stool 86 ug/g (0-120)
== END | disposition home or self-care (01) ==
LOC: LABSPEC 11:29
PROVIDERS: PCP Nurse Practitioner Family; Referring Provider Nurse Practitioner Acute Care; Visit Provider Nurse Practitioner Acute Care
DX: R74.01 Elevation of levels of liver transaminase levels (principal); K76.0 Fatty (change of) liver, not elsewhere classified; K76.89 Other specified diseases of liver; R19.7 Diarrhea, unspecified; Z86.0100 Personal history of colon polyps, unspecified; D49.0 Neoplasm of unspecified behavior of digestive system
CPT/HCPCS: 82653; 83993

== ENCOUNTER 2025-01-16 07:48 | Outpatient (CLI) | payer BC, SELFPAY ==
[2025-01-16 10:37] LABS: ALB/GLOB Ratio 1.3 RATIO (0.9-2.4); AST(SGOT) 40 U/L (<=37); Alanine Aminotransfer ALT/SGPT 44 U/L (<=46); Alkaline Phosphatase 73 U/L (40-129); Anion Gap 13 (5-15); BUN 16 mg/dL (4-19); BUN/Creat Ratio 20.6 RATIO (10-20); Calcium 9.5 mg/dL (7.6-11.0); Carbon Dioxide 20.2 mmol/L (22.0-29.0); Chloride 104 mmol/L (96-108); Creatinine, Serum 0.8 mg/dL (0.8-1.3); EST Glomerular Filtration Rate 100 (>60); Globulin 3.1 g/dL (2.2-4.2); Glucose 113 mg/dL (70-99); LDH 199 U/L (87-241); Potassium 4.1 mmol/L (3.3-5.1); Protein, Total 7.1 g/dL (5.9-8.4); Sodium Level 137 mmol/L (133-145); Total Bilirubin 0.88 mg/dL (0.00-1.30)
[2025-01-19 18:07] LABS: Chromogranin A 510.2 ng/mL (0.0-101.8); Insulin Level 25.6 uIU/mL (2.6-24.9)
== END 2025-01-16 23:59 | disposition home or self-care (01) ==
PROVIDERS: PCP Nurse Practitioner Family; Referring Provider Nurse Practitioner Acute Care; Visit Provider Nurse Practitioner Acute Care
DX: Z00.00 Encounter for general adult medical examination without abnormal findings (principal)
CPT/HCPCS: 80053; 83525; 83615; 86316

== ENCOUNTER 2025-02-25 05:26 | Day surgery (SDC) | payer BC, SELFPAY ==
[2025-02-25] VITALS (12 sets, daily range): BP systolic 116–181; BP diastolic 84–124; PULSE 94–120; RESP 18; TEMP 36.6–36.9; O2SAT 95–98; BMI 35.7
[2025-02-25] MEDS: 0.9% Normal Saline (500mL Bag) 500 ML 999 ML IV ×2 (06:26→06:43)
--- NOTE | 2025-02-25 06:26 | PRE.ANES_ITS ---
ASA Classification* ASA Classification ASA Classification: 3 Assessment & Plan Anesthesia* Anesthesia Assessment Anesthesia Assessment: Discussed sedation and/or anesthesia options, risks, benefits, and alternatives with patient/parents/legal guardian/POA. Questions invited. The patient/parents/legal guardian/POA seems to understand and agrees to proceed with anesthesia plan. Reviewed the physical assessment, medical history, allergy history and patient home medications list prior to surgery/procedure/anesthetic and documented any changes. Performed airway and anesthesia risk assessments. Anesthesia Type Anesthesia Type: MAC (Patient's blood pressures are elevated. Will give him a bolus of fluid. Have him take his normal carvedilol. He is also sweaty this mo rning along with the high blood pressure we want to double check a twelve-lead EKG.) History Source History Obtained from:: Patient and Chart Anesthesia Focused Assessment* Temperature: 98.2 F Pulse Rate: 120 Blood Pressure: 168/124 (Blood pressure decreased to 181/109. This is acceptable to proceed with procedure.) Respiratory Rate: 18 Pulse Ox: 98 Oxygen Delivery Method: Room Air Airway Assessment Mouth opens: >3 cm Mallampati Score: III Teeth Condition: Intact Neck Range of motion (ROM): Limited ROM (Somewhat decreased extension) Focused Labs Anesthesia Preop lab: CBC WBC 9.7 K/mm3 (4.4-11.0) 12/23/24 16:27 12/23/24 RBC 4.24 M/mm3 (4.6-6.2) L 12/23/24 16:27 12/23/24 Hgb 13.8 g/dL (13.0-16.5) 12/23/24 16:27 12/23/24 Hct 41.9 % (40-54) 12/23/24 16:27 12/23/24 Plt Count 234 K/mm3 (150-450) 12/23/24 16:27 12/23/24 CHEMISTRY Potassium 4.1 mmol/L (3.3-5.1) 01/16/25 07:53 01/16/25 Sodium 137 mmol/L (133-145) 01/16/25 07:53 01/16/25 Magnesium 1.8 mg/dL (1.6-2.6) 12/23/24 16:27 12/23/24 BUN 16 mg/dL (4-19) 01/16/25 07:53 01/16/25 Creatinine 0.8 mg/dL (0.8-1.3) 01/16/25 07:53 01/16/25 Glucose 113 mg/dL (70-99) H 01/16/25 07:53 01/16/25 TSH 3.09 uIU/mL (0.358-3.74) 11/01/16 10:04 COAG PT 13.3 SECONDS (11.7-14.9) 12/23/24 16:27 Pre-Assessment Diagnosis/Proposed Procedure Planned Operative Procedure(s): EGD, COLONOSCOPY Anesthesia History Anesthesia History - prior authorization technician: Anesthesia History - prior authorization technician Hx Hospitalization No 02/20/25 12:38 Any Problems With Anesthesia No 02/20/25 12:38 Cholinesterase deficiency No 02/20/25 12:38 You/Your Family Experience No 02/20/25 12:38 fever (hyperthermia) with Relationship Recent Exposure to Contagious No 02/25/25 05:46 Disease Does patient have nerve No 02/20/25 12:38 stimulator Patient instructed to have device shut off --Does patient have Pacemaker No 02/25/25 05:46 or ICD? When Was Last Pacemaker Check QUESTION #4 FULL TEXT: You/Your Family Experience fever (hyperthermia) with Anesthesia Last Oral Intake Last Oral intake: Last Oral Intake NPO since 04:30 02/25/25 05:46 Meds taken in AM with sips of Yes 02/25/25 05:46 water? Meds patient instructed to valsartan 02/25/25 05:46 take am of surgery Any additional information?: Yes NPO since: 04:30 (Patient finished prep at 4:30 AM.) Meds taken in AM with sips of water?: Yes PONV PONV - prior authorization technician: PONV - prior authorization technician Female No 02/20/25 12:38 HX of Motion Sickness Yes 02/20/25 12:38 HX of N/V After Surgery No 02/20/25 12:38 Non-Smoker Yes 02/20/25 12:38 Duration of Surgery greater No 02/20/25 12:38 than 60 minutes Number of Risk Factors 2 02/20/25 12:38 PONV Score Moderate Risk 02/20/25 12:38 Height & Weight Height & Weight: Anesthesia: Height & Weight Height 5 ft 10 in 02/25/25 05:46 Weight: 113 kg 02/25/25 05:46 Body Mass Index (BMI) 35.7 02/25/25 05:46 Respiratory Assessment Respiratory Assessment - prior authorization technician: Respiratory Tract Infection Hx - prior authorization technician Hx Respiratory Tract Infection No 02/20/25 12:38 STOP Sleep Apnea STOP Sleep Apnea - prior authorization technician: STOP Sleep Apnea - prior authorization technician Hx Hypertension Yes: per pt, controlled with 02/20/25 12:38 med Hx Sleep Apnea Yes 02/20/25 12:38 CPAP No 02/20/25 12:38 BIPAP Yes: in process of switching 02/20/25 12:38 from cpap to bipap Do you snore loudly (louder than talking or can be heard Do you often feel tired/ fatigued/ sleepy during daytime? Has anyone observed you stop breathing during sleep? STOP Results Positive 02/20/25 12:38 QUESTION #5 FULL TEXT : Do you snore loudly (louder than talking or can be heard through closed doors)? Tobacco Use History Tobacco Use History - prior authorization technician: Tobacco Use History - prior authorization technician Tobacco Use Smoking Status Former smoker 02/20/25 12:38 Hx Tobacco Use No 02/20/25 12:38 Years Smoking Packs Smoked per Day Smoking Cessation Date was No - quit smoking greater 02/20/25 12:38 within the last 15 years than 15 years ago Hx Smoking Cessation Date 11/20/10 02/20/25 12:38 Hx Smoking Cessation No 02/20/25 12:38 Counseling Hematologic Medial History Hematologic Hx - prior authorization technician: Hematologic Medical Hx - clinical documentation specialist Hx of Blood Transfusion Yes 02/20/25 12:38 Hx of Transfusion in last 3 No 02/20/25 12:38 Months Date of Last Transfusion (if within last 3 months) Ever experience any problems No 02/20/25 12:38 with transfusion(s)? Specify any problems Hx of Preganancy in last 3 N/A 02/20/25 12:38 Months Nurse Filling Out Transfusion MGRIFFITH 02/20/25 12:38 & Questions: Date: 02/20/25 02/20/25 12:38 Time: 12:41 02/20/25 12:38 Patient unable to answer at this time (ie. confused, unrespo /Reproduction History /Reproductive History - prior authorization technician: /Reproductive Hx- prior authorization technician Hx Now Gestational Age (in weeks): EDC: Hx Hx Para Hx Section SAB Active Medications Active Medications: Current Medications Generic Name Dose Route Start Last Admin Trade Name Freq PRN Reason Stop Dose Admin Sodium Chloride 500 mls @ 999 mls/hr 02/25/25 06:20 02/25/25 06:26 IV 999 mls/hr Q30M PRN Administration Tachycardia PFSH Medical History Cancer History of Clostridium difficile infection Gastric reflux Alcohol use Thyroid disease Arthritis Back pain Injury of head and neck Former smoker CPAP (continuous positive airway pressure) dependence History of pain when walking Hypertension Personal history of pulmonary embolism Hypothyroid GERD (gastroesophageal reflux disease) Hyperlipidemia History of melanoma Seminoma Dyslipidemia Testicular cancer Pulmonary embolism Home Medications ?Medication ?Instructions ?Recorded ?Last Taken ?Type fexofenadine 60 mg-pseudoephedrine 1 ea PO DAILY 11/0304/25/17 08:00 History ER 120 mg tablet,ext.release,12 hr fluticasone propionate 50 2 spray intranasal QDAY 03/07 Unknown History mcg/actuation nasal spray,suspension Saccharomyces boulardii 250 mg 250 mg PO QDAY 12/23/24 Unknown History capsule (Daily Probiotic (S. boulardii)) atorvastatin 40 mg tablet 40 mg PO QDAY 12/23/24 Unkno wn History carvedilol 12.5 mg tablet 12.5 mg PO BID 12/23/24 Unkn own History diphenoxylate-atropine 2.5 1 tab PO .QID 12/23/24 Unkn own History mg-0.025 mg tablet levothyroxine 25 mcg tablet 100 mcg PO DAILY 12/23/24 Unknown History magnesium oxide 500 mg PO BID 12/23/24 Unkno wn History meloxicam 15 mg tablet (Mobic) 15 mg PO QDAY PRN Pain 12/23/24 Unknown History spironolactone 25 mg tablet 12.5 mg PO QDAY 12/23/24 U nknown History valsartan 160 mg tablet 320 mg PO QDAY 12/23/2407/14 History omeprazole 40 mg capsule,delayed 40 mg PO DAILY Unknown History release Allergy/AdvReac Type Severity Reaction Status Date / Time adhesive tape AdvReac NEEDS Verified 02/25/25 05:43 FOLLOW-UP hydrocodone (From Vicodin) AdvReac Nausea/Vom/ Verified 02/25/25 05:43 Diarrhea Family History Father Asthma Cancer Brother Hypertension CAD (coronary artery disease) Surgical History History of abdominal surgery S/P repair of ventral hernia (~04/2018) History of melanoma excision History of colonoscopy History of orchiectomy History of hip surgery Social History Smoking Status: Former smoker alcohol intake: current alcohol intake frequency: 0-2 drinks per day Review of Systems (Anesthesia) ROS Narrative System reviewed and no additional complaints, except as documented.
--- NOTE | 2025-02-25 06:30 | EGD_PTH ---
PATIENT: JAQUELINE PEREYRA LOC: EN U#:[id number] AGE/SX: 64/M ROOM: RE02/25/[address]: Dr. Johnny Olivo DO : 1960 BED: DIS: 02/25/2025 SPEC #: [id number] RECD: 02/25/25 10:46 STATUS: OZZIE SHERLEY #: [id number] MONIK: 02/25/25 06:[address]: Johnny Olivo DEPT: SURGICAL PATHOLOGY RECD BY: Moshe Marino ENTERED: 02/25/25 10:47 SP TYPE: EGD BIOPSY SYD DR: Gab Corbett, TECHNOLOGY METHODOLOGY CONSULTANT-C Tissues: A - Gastric mucous membrane B - Duodenum, NOS C - Sigmoid colon biopsy D - Ileum, NOS E - COLON BIOPSY F - Descending colon Procedures: Immunohistochemical Stains Trichrome (control) Special Stain Group I Surgery Specimen Level IV HEADER OPERATION: Colonoscopy with biopsy and polypectomy, EGD with biopsy PRE-OP DIAGNOSIS: Diarrhea, personal history of colonic polyps TISSUE SUBMITTED: A- Gastric body biopsy, B- Duodenum biopsy, C- Sigmoid polyp biopsy,D- Terminal ileum biopsy, E- Random colon biopsy, F- Descending colon polyp MICROSCOPIC DIAGNOSIS A. Stomach, body, biopsy: * Oxyntic mucosa with mild chronic inflammation and thickening of the subepithelial collagen plate, suggestive of collagenous gastritis - see note. * IHC negative for H pylori organisms. Note: Trichrome stain highlights the subepithelial collagen, supporting the diagnosis. B. Duodenum, biopsy: * Sissy gland hyperplasia. * Negative for increased intraepithelial lymphocytes. C. Sigmoid colon, polyp, biopsy: * Hyperplastic polyp. D. Terminal ileum, biopsy: * Focal acute inflammation with focal mild thickening of the subepithelial collagen table - see note. Note: A trichrome stain highlights only focal thickening of the subepithelial collagen plate, which is a nonspecific. E. Colon, random, biopsy: * No specific pathologic change. * The histologic features of microscopic (lymphocytic, collagenous) colitis are not demonstrated. F. Descending colon, polyp, biopsy: * Hyperplastic polyp. MICROSCOPIC DESCRIPTION Slides are reviewed. These tests were developed and their performance characteristics determined by [facility]. They may not have been cleared or approved by the [place]. Food and Drug Administration. The FDA has determined that such clearance or approval is not necessary. The above immunohistochemical/dualISH markers are ordered and reviewed by the Pathologist. GROSS DESCRIPTION A. Received in fixative is one container labeled with the patient's name and designated Gastric body biopsy. The specimen consists of multiple irregular fragments of light castillo soft tissue that in aggregate measure 1.3 x 0.2 x 0.2 cm. The specimen is totally submitted in one cassette. B. Received in fixative is one container labeled with the patient's name and designated Duodenum biopsy. The specimen consists of two irregular fragments of light castillo soft tissue that in aggregate measure 0.9 x 0.2 x 0.2 cm. The specimen is totally submitted in one cassette. C. Received in fixative is one container labeled with the patient's name and designated Sigmoid polyp biopsy. The specimen consists of one irregular fragment of light castillo soft tissue that measures 0.4 x 0.3 x 0.2 cm. The specimen is totally submitted in one cassette. D. Received in fixative is one container labeled with the patient's name and designated Terminal ileum biopsy. The specimen consists of multiple irregular fragments of light castillo soft tissue that in aggregate measure 1.2 x 0.2 x 0.2 cm. The specimen is totally submitted in one cassette. E. Received in fixative is one container labeled with the patient's name and designated Random colon biopsy. The specimen consists of multiple irregular fragments of light castillo soft tissue that in aggregate measure 2.6 x 0.2 x 0.2 cm. The specimen is totally submitted in one cassette. F. two irregular fragments of light castillo soft tissue that in aggregate measure 0.7 x 0.3 x 0.2 cm. The specimen is totally submitted in one cassette. DANTE/ 02/25/2025 CPT:[id number]
--- NOTE | 2025-02-25 06:36 | EKG12_ITS ---
Test Reason : P Blood Pressure : */* mmHG Vent. Rate : 100 BPM Atrial Rate : 100 BPM P-R Int : 156 ms QRS Dur : 80 ms QT Int : 370 ms P-R-T Axes : 58 32 46 degrees QTcB Int : 477 ms Normal sinus rhythm Normal ECG When compared with ECG of 02-Feb-2024 07:32, No significant change was found Confirmed by TRICIA WEBBER, SHUKRI ([id number]), state editor ION PEREZ ([id number]) on 02/27/2025 12:52:59 PM Referred By: Gab Corbett Confirmed By: SHUKRI CLARKE MD
[2025-02-25] MEDS: Carvedilol 12.5 MG Tablet PO (06:42)
--- NOTE | 2025-02-25 06:52 | HP.PCM_ITS ---
HPI - General General Date of Admission: 02/25/25 Date of Service: 02/25/25 Chief Complaint: diarrhea HPI Narrative JAQUELINE PEREYRA, is a 64 M who presents for the evaluation of diarrhea He believes hypomagnesia is secondary to frequent diarrhea. He complains of daily diarrhea for >6 months which he reports began with starting a statin. However, he reports with discontinuing this medication the diarrhea has persisted. He is experiencing 4-6 BM a day since starting Lomotil. 12/17/2024 Shiga neg., Giardia neg., C. Diff PCR positive, awaiting results of TOXIN, Fecal Leukocytes Absent C. Diff PCR positive 12/17/2024, TOXIN negative C. Diff PCR positive 11/26/2024, TOXIN negative - reports he was treated with ATB - diarrhea is watery, urgency, denies any BRBPR - Colonoscopy- Dr. Douglass - small polyps - thinks this was >5 years ago - has started Lomotil - pudding and watery diarrhea - 4x today - prior to starting he would 6-10 BM a day - waking at HS with BM - states he was receiving IV magnesium - and started PO magnesium - currently on Magnesium 1000mg daily - his OTC megnesium supplement contains Magnesium glycynate and Magnesium taurate and Magnesium L-threonate - he rider truel lele taking for the past month - diarrhea - He was on Omeprazole - had been on this for a long time and then discontinued and diarrhea persisting - occasional HB - resolves with Tums - denies any h/o EGD- denies any family h/o celiac disease - history of testicular cancer in 2013 with metastasis to the abdomen - he was treated with Chemo, 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 There is some focal sparing surrounding the gallbladder fossa. There are a few scattered subcentimeter benign hepatic cysts. There is no abnormal restricted diffusion of the liver or suspicious enhancing lesion within the liver. The gallbladder is present and collapsed, no filling defects are evident. No biliary ductal dilation is demonstrated. The spleen and adrenal glands demonstrate no suspicious lesion. There is a 0.6 cm hyperenhancing area within the pancreatic body which is vascular in etiology rather than a parenchymal lesion. Probable 3 mm pancreatic head side branch IPMN (8:21). 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 and carrier - does not feel like he has a problem - he does agree it would be in his best interest to decrease alcohol consumption - denies any h/o DT - Grandfather and Brother with alcohol abuse HAV Total Ab: HBVsAg: HBVsAb: HBV Core Ab Total: HCV Ab: CBC: 12/01/2024 PLT 163 CMP: 12/01/2024 AST 104, ALT 70 Magnesium 1.5 ELF: ABD US: FibroScan: Elastography: WEIGHT: PFSH Medical History Cancer History of Clostridium difficile infection Gastric reflux Alcohol use Thyroid disease Arthritis Back pain Injury of head and neck Former smoker CPAP (continuous positive airway pressure) dependence History of pain when walking Hypertension Personal history of pulmonary embolism Hypothyroid GERD (gastroesophageal reflux disease) Hyperlipidemia History of melanoma Seminoma Dyslipidemia Testicular cancer Pulmonary embolism Home Medications ?Medication ?Instructions ?Recorded ?Last Taken ?Type fexofenadine 60 mg-pseudoephedrine 1 ea PO DAILY 11/0304/25/17 08:00 History ER 120 mg tablet,ext.release,12 hr fluticasone propionate 50 2 spray intranasal QDAY 03/07 Unknown History mcg/actuation nasal spray,suspension Saccharomyces boulardii 250 mg 250 mg PO QDAY 12/23/24 Unknown History capsule (Daily Probiotic (S. boulardii)) atorvastatin 40 mg tablet 40 mg PO QDAY 12/23/24 Unkno wn History carvedilol 12.5 mg tablet 12.5 mg PO BID 12/23/24 Unkn own History diphenoxylate-atropine 2.5 1 tab PO .QID 12/23/24 Unkn own History mg-0.025 mg tablet levothyroxine 25 mcg tablet 100 mcg PO DAILY 12/23/24 Unknown History magnesium oxide 500 mg PO BID 12/23/24 Unkno wn History meloxicam 15 mg tablet (Mobic) 15 mg PO QDAY PRN Pain 12/23/24 Unknown History spironolactone 25 mg tablet 12.5 mg PO QDAY 12/23/24 U nknown History valsartan 160 mg tablet 320 mg PO QDAY 12/23/24 04/0 07/14 History omeprazole 40 mg capsule,delayed 40 mg PO DAILY Unknown History release Allergy/AdvReac Type Severity Reaction Status Date / Time adhesive tape AdvReac NEEDS Verified 02/25/25 05:43 FOLLOW-UP hydrocodone (From Vicodin) AdvReac Nausea/Vom/ Verified 02/25/25 05:43 Diarrhea Family History Father Asthma Cancer Brother Hypertension CAD (coronary artery disease) Surgical History History of abdominal surgery S/P repair of ventral hernia (~04/2018) History of melanoma excision History of colonoscopy History of orchiectomy History of hip surgery Social History Smoking Status: Former smoker alcohol intake: current alcohol intake frequency: 0-2 drinks per day ROS Constitutional Constitutional: Denies fatigue, fever(s), poor appetite, weight gain or weight loss Gastrointestinal Gastrointestinal: Denies belching, bloating, change in bowel habits, change in stool character, chewing difficulty, coffee ground emesis, constipation, cramping, diarrhea, dyspepsia, dysphagia, early satiety, excessive flatus, fecal incontinence, heartburn, hematemesis, hematochezia, hemorrhoids, loose stools, melena, nausea, odynophagia, rectal bleeding, tenesmus, vomiting or weight changes Vital Signs Vital Signs Vital Signs: 02/25/25 05:46 02/25/25 05:46 02/25/25 06:39 Temperature 98.2 F 98.2 F Temperature Source Temporal Pulse Rate 120 H 120 H Respiratory Rate 18 18 Respiratory Pattern Normal Blood Pressure 168/124 H 168/124 H Blood Pressure Mean 138 Blood Pressure Source Monitor Blood Pressure Position Sitting Blood Pressure Location Left Arm Pulse Ox 98 98 Oxygen Delivery Method Room Air Room Air 02/25/25 06:41 Temperature Temperature Source Pulse Rate 99 Respiratory Rate Respiratory Pattern Blood Pressure 180/112 H Blood Pressure Mean Blood Pressure Source Blood Pressure Position Blood Pressure Location Pulse Ox Oxygen Delivery Method Weight Weight: 249 lb 1.957 oz Body Mass Index (BMI) 35.7 Physical Exam Const alert, oriented x3 and no apparent distress General Appearance: cooperative and comfortable Eyes General Eye: normal appearance of both eyes Neck General: normal visual inspection Chest inspection of chest normal Resp Effort and Inspection: able to speak in complete sentences and symmetric chest movement Auscultation: clear to auscultation bilaterally Cardio regular rate and regular rhythm GI soft to palpation, non-tender and non-distended Extremity no calf tenderness Neuro oriented x3 Psych thought process normal Assessment & Plan Assessment/Plan (1) Diarrhea: (2) Personal history of colonic polyps: PLAN: Assessment and Plan Assessment and Plan (1) Personal history of colonic polyps: Status: Acute (2) Elevated AST (SGOT): Status: Acute (3) Elevated ALT measurement: Status: Acute (4) Steatosis, liver: Status: Acute (5) Liver cyst: Status: Acute (6) Diarrhea: Status: Acute (7) IPMN (intraductal papillary mucinous neoplasm): Status: Acute (8) Alcohol abuse: Status: Acute (9) Pancreatic lesion: Status: Acute Comment: In terms of hyperenhancing pancreatic body lesion (0.6cm) seen on October 2024 MRI with his history of chronic alcohol abuse and testicular cancer with mets (chemo and surgery, no radiation), I recommend further evaluation to differentiate these findings. Differential includes PanNET, insulinoma, gastrinoma, hemangioma, AVM, metastasis from testicular cancer (rare [NSGCT]), alcohol or autoimmune related changes. Plan: Chromogranin A Fasting Gastrin VIP Insulin Glucagon LDH B-hCG IgG4 Orders: Orders Hepatitis A AB, Total Today D49.0 - Neoplasm of unspecified behavior of digestive system, K76.0 - Fatty (change of) liver, not elsewhere classified, K76.89 - Other specified diseases of liver, R19.7 - Diarrhea, unspecified, R74.01 - Elevation of levels of liver transaminase levels, Z86.010 - Personal history of colon polyps Hepatitis B Surface Antibody Today D49.0 - Neoplasm of unspecified behavior of digestive system, K76.0 - Fatty (change of) liver, not elsewhere classified, K76.89 - Other specified diseases of liver, R19.7 - Diarrhea, unspecified, R74. 01 - Elevation of levels of liver transaminase levels, Z86.010 - Personal history of colon polyps Hepatitis B Surface Antigen Today D49.0 - Neoplasm of unspecified behavior of digestive system, K76.0 - Fatty (change of) liver, not elsewhere classified, K76.89 - Other specified diseases of liver, R19.7 - Diarrhea, unspecified, R74.01 - Elevation of levels of liver transaminase levels, Z86.010 - Personal history of colon polyps Hepatitis C Antibody Today D49.0 - Neoplasm of unspecified behavior of digestive system, K76.0 - Fatty (change of) liver, not elsewhere classified, K76.89 - Other specified diseases of liver, R19.7 - Diarrhea, unspecified, R74.01 - Elevation of levels of liver transaminase levels, Z86.010 - Personal history of colon polyps Hepatitis B Core Ab Total Today D49.0 - Neoplasm of unspecified behavior of digestive system, K76.0 - Fatty (change of) liver, not elsewhere classified, K76.89 - Other specified diseases of liver, R19.7 - Diarrhea, unspecified, R74.01 - Elevation of levels of liver transaminase levels, Z86.010 - Personal history of colon polyps Prothrombin Time w/INR Today D49.0 - Neoplasm of unspecified behavior of digestive system, K76.0 - Fatty (change of) liver, not elsewhere classified, K76.89 - Other specified diseases of liver, R19.7 - Diarrhea, unspecified, R74.01 - Elevation of levels of liver transaminase levels, Z86.010 - Personal history of colon polyps Lipase Today D49.0 - Neoplasm of unspecified behavior of digestive system, K76.0 - Fatty (change of) liver, not elsewhere classified, K76.89 - Other specified diseases of liver, R19.7 - Diarrhea, unspecified, R74.01 - Elevation of levels of liver transaminase levels, Z86.010 - Personal history of colon polyps Pancreatic Elastase, Fecal Today D49.0 - Neoplasm of unspecified behavior of digestive system, K76.0 - Fatty (change of) liver, not elsewhere classified, K76.89 - Other specified diseases of liver, R19.7 - Diarrhea, unspecified, R74.01 - Elevation of levels of liver transaminase levels, Z86.010 - Personal history of colon polyps Calprotectin, Stool Today D49.0 - Neoplasm of unspecified behavior of digestive system, K76.0 - Fatty (change of) liver, not elsewhere classified, K76.89 - Other specified diseases of liver, R19.7 - Diarrhea, unspecified, R74.01 - Elevation of levels of liver transaminase levels, Z86.010 - Personal history of colon polyps Anti-Mitochondrial AB Today D49.0 - Neoplasm of unspecified behavior of digestive system, K76.0 - Fatty (change of) liver, not elsewhere classified, K76.89 - Other specified diseases of liver, R19.7 - Diarrhea, unspecified, R74.01 - Elevation of levels of liver transaminase levels, Z86.010 - Personal history of colon polyps Anti-Smooth Muscle ABS Today D49.0 - Neoplasm of unspecified behavior of digestive system, K76.0 - Fatty (change of) liver, not elsewhere classified, K76.89 - Other specified diseases of liver, R19.7 - Diarrhea, unspecified, R74.01 - Elevation of levels of liver transaminase levels, Z86.010 - Personal history of colon polyps ANCA Today D49.0 - Neoplasm of unspecified behavior of digestive system, K76.0 - Fatty (change of) liver, not elsewhere classified, K76.89 - Other specified diseases of liver, R19.7 - Diarrhea, unspecified, R74.01 - Elevation of levels of liver transaminase levels, Z86.010 - Personal history of colon polyps Ferritin Today D49.0 - Neoplasm of unspecified behavior of digestive system, K76.0 - Fatty (change of) liver, not elsewhere classified, K76.89 - Other specified diseases of liver, R19.7 - Diarrhea, unspecified, R74.01 - Elevation of levels of liver transaminase levels, Z86.010 - Personal history of colon polyps Iron Binding Capacity,Total Today D49.0 - Neoplasm of unspecified behavior of digestive system, K76.0 - Fatty (change of) liver, not elsewhere classified, K76.89 - Other specified diseases of liver, R19.7 - Diarrhea, unspecified, R74.01 - Elevation of levels of liver transaminase levels, Z86.010 - Personal history of colon polyps Iron Today D49.0 - Neoplasm of unspecified behavior of digestive system, K76.0 - Fatty (change of) liver, not elsewhere classified, K76.89 - Other specified diseases of liver, R19.7 - Diarrhea, unspecified, R74.01 - Elevation of levels of liver transaminase levels, Z86.010 - Personal history of colon polyps CBC W/Diff, Automated Today D49.0 - Neoplasm of unspecified behavior of digestive system, K76.0 - Fatty (change of) liver, not elsewhere classified, K76.89 - Other specified diseases of liver, R19.7 - Diarrhea, unspecified, R74.01 - Elevation of levels of liver transaminase levels, Z86.010 - Personal history of colon polyps Vitamin B1, Thiamine Today F10.10 - Alcohol abuse, uncomplicated Vitamin B12 Today F10.10 - Alcohol abuse, uncomplicated Folates, (Folic Acid) Today F10.10 - Alcohol abuse, uncomplicated Magnesium Today F10.10 - Alcohol abuse, uncomplicated AFP, Tumor Marker Today D49.0 - Neoplasm of unspecified behavior of digestive system, F10.10 - Alcohol abuse, uncomplicated, K76.0 - Fatty (change of) liver, not elsewhere classified, K76.89 - Other specified diseases of liver, R19.7 - Diarrhea, unspecified, R74.01 - Elevation of levels of liver transaminase levels, Z86.010 - Personal history of colon polyps Plan In terms of hyperenhancing pancreatic body lesion (0.6cm) seen on October 2024 MRI with his history of chronic alcohol abuse and testicular cancer with mets (chemo and surgery, no radiation), I recommend further evaluation to differentiate these findings. Differential includes PanNET, insulinoma, gastrinoma, hemangioma, AVM, metastasis from testicular cancer (rare [NSGCT]), alcohol or autoimmune related changes. In terms of 3mm side branch IPMN, I recommend MRI in 6-12 months. In terms of elevated transaminases and liver steatosis noted on MRI, I recommend additional labs and FibroScan. I have strongly encouraged he abstain from alcohol consumption. AST>ALT (2:1) and elevated GGT is typical for ALD. MRI was suggestive of liver steatosis as well as benign liver cysts. He reports drinking 1 pint of Vodka daily for the past few years, prior to this he was drinking beer. We have discussed diarrhea being a possible cause for electrolyte abn ormalities; however, daily alcohol use is likely a contributing factor. He believes hypomagnesia is secondary to frequent diarrhea. He complains of daily diarrhea for >6 months which he reports began with starting a statin. However, he reports with discontinuing this medication the diarrhea has persisted. He is experiencing 4-6 BM a day since starting Lomotil. In terms of diarrhea. C. Diff PCR positive with negative toxin x2, suggests colonization and not active infection. GIPCR, Giardia and Shiga were also negative; suggesting the potential for infectious diarrhea is low especially with negative fecal WBCs. Omeprazole is unlikely the cause of diarrhea, being that he had been on this for many years. If HB symptoms become more persistent, I recommend resuming daily PPI. He started a Magnesium supplement one month ago which includes Mag. glycinate, Mag. taurate and Mag. L. threonate. We have discussed (taurate and L- threonate) both have a potential for causing diarrhea. He remains on a statin daily and these medications do have a potential for diarrhea as well as potential for delayed onset. Differential for diarrhea includes alcohol-induced malabsorption which will also result in hypomagnesia and hyponatremia, neuroendocrine tumor, chronic pancreatitis (even with a normal lipase), SIBO, microscopic colitis secondary to chronic alcohol use. I have ordered stool testing and labs to evaluate for malabsorption. I have also scheduled him for a colonoscopy and EGD. A total of 75 minutes was spent on this visit reviewing [facility] and/or [address] for associated records; previous notes (Labs September, October 2024 & November 2024, C. Diff, Giardia, MRI, GIPCR, PCP progress note), counseling the patient on (OTC supplements and potential s/e, MRI findings and recommendations, [place] labs recommendation to abstain from alcohol intake and additonal testing), ordering tests (AFP, CMP, CBC, PT/INR, HAV Total, HBVsAb, HBVsAg, HBV Core total, HCV Ab, Fecal ELastase, Fecal Calprotectin, AMA, ASMA, ANCA, Fe panel, Ferritin, B1, B12, Folate, Magnesium), adjusting meds, importance of compliance with treatment and documenting the findings in the note. Patient Instructions: Complete labs and stool testing today Additional labs to be completed later in week when fasting FibroScan [place] [facility] Colon & EGD Okay, to continue Lomotil PRN Abstain from alcohol consumption PO Magnesium may be contributing to ongoing diarrhea High protein diet encouraged - with Ensure/Boost daily
--- NOTE | 2025-02-25 07:32 | OP.EGD_ITS ---
Patient Name: Eliceo Graham Procedure Date: 02/25/2025 6:09 AM Date of : 1960 Age: 64 Procedure: Upper GI endoscopy Indications: Epigastric abdominal pain Providers: Johnny Olivo DO Referring MD: Gab Corbett Medicines: Monitored Anesthesia Care Patient Profile: This is a 64 year old male. Refer to note in patient chart for documentation of history and physical. Patient has symptoms of chronic abdominal cramping and chronic abdominal distention. Complications: No immediate complications. Procedure: Pre-Anesthesia Assessment: - Prior to the procedure, a History and Physical was performed, and patient medications and allergies were reviewed. The patient is competent. The risks and benefits of the procedure and the sedation options and risks were discussed with the patient. All questions were answered and informed consent was obtained. Patient identification and proposed procedure were verified by the physician in the pre-procedure area. Mental Status Examination: alert and oriented. Airway Examination: normal oropharyngeal airway and neck mobility. Respiratory Examination: clear to auscultation. CV Examination: normal. Prophylactic Antibiotics: The patient does not require prophylactic antibiotics. Prior Anticoagulants: The patient has taken no anticoagulant or antiplatelet agents except for NSAID medication. ASA Grade Assessment: II - A patient with mild systemic disease. After reviewing the risks and benefits, the patient was deemed in satisfactory condition to undergo the procedure. The anesthesia plan was to use monitored anesthesia care (MAC). Immediately prior to administration of medications, the patient was re-assessed for adequacy to receive sedatives. The heart rate, respiratory rate, oxygen saturations, blood pressure, adequacy of pulmonary ventilation, and response to care were monitored throughout the procedure. The physical status of the patient was re-assessed after the procedure. After obtaining informed consent, the endoscope was passed under direct vision. Throughout the procedure, the patient's blood pressure, pulse, and oxygen saturations were monitored continuously. The Colonoscope was introduced through the mouth, and advanced to the fourth part of the duodenum. Small bowel enteroscopy was deemed necessary. The upper GI endoscopy was accomplished without difficulty. The patient tolerated the procedure well. Scope In: 7:06:18 AM Scope Out: 7:10:47 AM Total Procedure Duration Time 0 hours 4 minutes 29 seconds Findings: LA Grade B (one or more mucosal breaks greater than 5 mm, not extending between the tops of two mucosal folds) esophagitis with no bleeding was found 35 to 39 cm from the incisors. A medium-sized hiatal hernia was present. Diffuse moderate inflammation characterized by erythema, friability and granularity was found in the entire examined stomach. Biopsies were taken with a cold forceps for histology. Verification of patient identification for the specimen was done. Biopsies were taken with a cold forceps for Helicobacter pylori testing. Verification of patient identification for the specimen was done. Estimated blood loss was minimal. Patchy mild inflammation characterized by erosions and erythema was found in the third portion of the duodenum. Biopsies were taken with a cold forceps for histology. Verification of patient identification for the specimen was done. Estimated blood loss was minimal. Impression: - LA Grade B reflux esophagitis with no bleeding. - Medium-sized hiatal hernia. - Alcoholic gastritis. Biopsied. - Alcoholic duodenitis. Biopsied. Recommendation: - Discharge patient to home. - Resume previous diet. - Continue present medications. - Await pathology results. Procedure Code(s): --- Professional --- 01979, Small intestinal endoscopy, enteroscopy beyond second portion of duodenum, not including ileum; with biopsy, single or multiple CPT copyright 2021 [employer]. All rights reserved. The codes documented in this report are preliminary and upon salesperson yard goods review may be revised to meet current compliance requirements. Johnny Olivo DO 02/25/2025 7:31:30 AM This report has been signed electronically. Number of Addenda: 0 Note Initiated On: 02/25/2025 6:09 AM
--- NOTE | 2025-02-25 07:32 | OP.CCLET_ITS ---
02/25/2025 Gab Corbett Re : Upper GI endoscopy procedure for Eliceo Colbyr Aric This procedure was performed on Tuesday, February 25, 2025. My impressions and recommendations are as follows: Impressions : - LA Grade B reflux esophagitis with no bleeding. - Medium-sized hiatal hernia. - Alcoholic gastritis. Biopsied. - Alcoholic duodenitis. Biopsied. Recommendations : - Discharge patient to home. - Resume previous diet. - Continue present medications. - Await pathology results. My findings are described in the full procedure note, which is enclosed. If I can be of further assistance, please feel free to contact me at . Sincerely, Johnny Olivo DO 02/25/2025 7:31:30 AM This report has been signed electronically.
--- NOTE | 2025-02-25 07:37 | PCM.POST.ANE ---
Anesthesia: Postop Eval I Current Vital Signs Temperature: 97.8 F Pulse Rate: 106 Blood Pressure: 116/84 Respiratory Rate: 18 Pulse Ox: 97 Oxygen Delivery Method: Room Air Assessment Airway patent: Yes Spontaneous unlabored respirations: Yes Mental status: Awake and Calm nausea: No Vomiting: No Anesthesia Complication: No Fluid Hydration Crystalloid volume administer (ml): 600 Total IV fluid infused: 600 Progress Note Anesthesia document: Postop Eval 1 completed: Yes
--- NOTE | 2025-02-25 07:39 | OP.COLON_ITS ---
Patient Name: Eliceo Graham Procedure Date: 02/25/2025 7:11 AM Date of : 1960 Age: 64 Procedure: Colonoscopy Indications: Chronic diarrhea Providers: Johnny Olivo DO Referring MD: Gab Corbett Medicines: Monitored Anesthesia Care Patient Profile: This is a 64 year old male. Refer to note in patient chart for documentation of history and physical. Patient has symptoms of chronic abdominal cramping and chronic abdominal distention. Last Colonoscopy: 5 years ago. Complications: No immediate complications. Procedure: Pre-Anesthesia Assessment: - Prior to the procedure, a History and Physical was performed, and patient medications and allergies were reviewed. The patient is competent. The risks and benefits of the procedure and the sedation options and risks were discussed with the patient. All questions were answered and informed consent was obtained. Patient identification and proposed procedure were verified by the physician in the pre-procedure area. Mental Status Examination: alert and oriented. Airway Examination: normal oropharyngeal airway and neck mobility. Respiratory Examination: clear to auscultation. CV Examination: normal. Prophylactic Antibiotics: The patient does not require prophylactic antibiotics. Prior Anticoagulants: The patient has taken no anticoagulant or antiplatelet agents except for NSAID medication. ASA Grade Assessment: II - A patient with mild systemic disease. After reviewing the risks and benefits, the patient was deemed in satisfactory condition to undergo the procedure. The anesthesia plan was to use monitored anesthesia care (MAC). Immediately prior to administration of medications, the patient was re-assessed for adequacy to receive sedatives. The heart rate, respiratory rate, oxygen saturations, blood pressure, adequacy of pulmonary ventilation, and response to care were monitored throughout the procedure. The physical status of the patient was re-assessed after the procedure. After I obtained informed consent, the scope was passed under direct vision. Throughout the procedure, the patient's blood pressure, pulse, and oxygen saturations were monitored continuously. The Colonoscope was introduced through the anus and advanced to the terminal ileum. The colonoscopy was performed without difficulty. The patient tolerated the procedure well. The quality of the bowel preparation was adequate. The terminal ileum, ileocecal valve, appendiceal orifice, and rectum were photographed. Scope In: 7:14:01 AM Scope Withdrawal Time 0 hours 9 minutes 30 seconds Scope Out: 7:25:38 AM Total Procedure Duration Time 0 hours 11 minutes 37 seconds Findings: The perianal and digital rectal examinations were normal. A 5 mm polyp was found in the recto-sigmoid colon. The polyp was sessile. The polyp was removed with a jumbo cold forceps. Resection and retrieval were complete. Verification of patient identification for the specimen was done. Estimated blood loss was minimal. A 9 mm polyp was found in the descending colon. The polyp was sessile. The polyp was removed with a hot snare. Resection and retrieval were complete. Verification of patient identification for the specimen was done. Estimated blood loss was minimal. Multiple small and large-mouthed diverticula were found in the recto-sigmoid colon, sigmoid colon, descending colon, splenic flexure, transverse colon, hepatic flexure, ascending colon and cecum. Stool was found in the recto-sigmoid colon, in the sigmoid colon, at the splenic flexure and in the transverse colon. An area of mildly congested mucosa was found in the entire colon. Biopsies for histology were taken with a cold forceps from the entire colon for evaluation of microscopic colitis. Verification of patient identification for the specimen was done. Estimated blood loss was minimal. Patchy mild inflammation characterized by congestion (edema) was found in the terminal ileum. Biopsies were taken with a cold forceps for histology. Verification of patient identification for the specimen was done. Estimated blood loss was minimal. Impression: - One 5 mm polyp at the recto-sigmoid colon, removed with a jumbo cold forceps. Resected and retrieved. - One 9 mm polyp in the descending colon, removed with a hot snare. Resected and retrieved. - Diverticulosis in the recto-sigmoid colon, in the sigmoid colon, in the descending colon, at the splenic flexure, in the transverse colon, at the hepatic flexure, in the ascending colon and in the cecum. - Stool in the recto-sigmoid colon, in the sigmoid colon, at the splenic flexure and in the transverse colon. Recommendation: - Discharge patient to home. - Resume previous diet. - Continue present medications. - Await pathology results. - Repeat colonoscopy in 5 years for surveillance. - Return to GI office. Procedure Code(s): --- Professional --- 93482, Colonoscopy, flexible; with removal of tumor(s), polyp(s), or other lesion(s) by snare technique 20947, 59, Colonoscopy, flexible; with biopsy, single or multiple CPT copyright 2021 [employer]. All rights reserved. The codes documented in this report are preliminary and upon automobile drivers review may be revised to meet current compliance requirements. Johnny Olivo DO 02/25/2025 7:39:14 AM This report has been signed electronically. Number of Addenda: 0 Note Initiated On: 02/25/2025 7:11 AM
--- NOTE | 2025-02-25 07:39 | OP.CCLET_ITS ---
02/25/2025 Gab Corbett Re : Colonoscopy procedure for Eliceo Colbyr Aric This procedure was performed on Tuesday, February 25, 2025. My impressions and recommendations are as follows: Impressions : - One 5 mm polyp at the recto-sigmoid colon, removed with a jumbo cold forceps. Resected and retrieved. - One 9 mm polyp in the descending colon, removed with a hot snare. Resected and retrieved. - Diverticulosis in the recto-sigmoid colon, in the sigmoid colon, in the descending colon, at the splenic flexure, in the transverse colon, at the hepatic flexure, in the ascending colon and in the cecum. - Stool in the recto-sigmoid colon, in the sigmoid colon, at the splenic flexure and in the transverse colon. Recommendations : - Discharge patient to home. - Resume previous diet. - Continue present medications. - Await pathology results. - Repeat colonoscopy in 5 years for surveillance. - Return to GI office. My findings are described in the full procedure note, which is enclosed. If I can be of further assistance, please feel free to contact me at . Sincerely, Johnny Olivo, 02/25/2025 7:39:14 AM This report has been signed electronically.
--- NOTE | 2025-02-25 12:24 | PCM.POSTANE2 ---
Anesthesia Postop Eval I Sum Postop Eval Completion status Anesthesia document: Postop Eval 1 completed: Yes Anesthesia Postop Eval I Summary Anesthesia Postop Eval I Summary: Anesthesia Postop Eval I: Assessment Summary Airway patent Yes 02/25/25 07:38 [email or web address] Spontaneous unlabored Yes 02/25/25 07:38 [email or web address] respirations Mental status Awake,Calm 02/25/25 07:38 [email or web address] nausea No 02/25/25 07:38 [email or web address] Vomiting No 02/25/25 07:38 [email or web address] Anesthesia Postop Eval I: Fluid Summary Crystalloid volume administer 600 02/25/25 07:38 [email or web address] (ml) Colloids volume administered ( ml) Blood Product volume administered (ml) Total IV fluid infused 600 02/25/25 07:38 [email or web address] Anesthesia Postop Eval I: Summary Notes Anesthesia Complication No 02/25/25 07:38 [email or web address] Anesthesia Complication Comment: Post-operative progress note Anesthesia: Postop Eval II Evaluation Mental status: Awake and Calm Pain Level: 0 nausea: No Vomiting: No Complications Anesthesia Complication: No
== END 2025-02-25 08:18 | disposition home or self-care (01) ==
LOC: EN 05:26 → AC 05:27
PROVIDERS: PCP Nurse Practitioner Family; Referring Provider Nurse Practitioner Family; Visit Provider Internal Medicine Gastroenterology
PROC: 0DJD8ZZ Inspection of Lower Intestinal Tract, Via Natural or Artificial Opening Endoscopic (ICD-10-PCS; CPT 45378; principal; 2025-02-25 06:25)
DX: K52.9 Noninfective gastroenteritis and colitis, unspecified (principal); K44.9 Diaphragmatic hernia without obstruction or gangrene; I10 Essential (primary) hypertension; E78.5 Hyperlipidemia, unspecified; K21.00 Gastro-esophageal reflux disease with esophagitis, without bleeding; K76.89 Other specified diseases of liver; F10.10 Alcohol abuse, uncomplicated; K63.5 Polyp of colon; Z86.0100 Personal history of colon polyps, unspecified; R74.01 Elevation of levels of liver transaminase levels; Z92.21 Personal history of antineoplastic chemotherapy; Z87.891 Personal history of nicotine dependence; K57.30 Diverticulosis of large intestine without perforation or abscess without bleeding; K29.20 Alcoholic gastritis without bleeding; K76.0 Fatty (change of) liver, not elsewhere classified; E03.9 Hypothyroidism, unspecified; Z79.899 Other long term (current) drug therapy; Z79.890 Hormone replacement therapy; D13.6 Benign neoplasm of pancreas; K86.9 Disease of pancreas, unspecified; K29.81 Duodenitis with bleeding
CPT/HCPCS: 45385; 45380; 43239; 88305; 88342; 93005; A4216; J2405

== ENCOUNTER → 2025-03-06 | Outpatient (CLI) | payer BC, SELFPAY ==
[2025-03-06 10:56] LABS: LDH 359 U/L (87-241)
== END | disposition home or self-care (01) ==
LOC: LAB 09:34
PROVIDERS: PCP Nurse Practitioner Family; Referring Provider Nurse Practitioner Acute Care; Visit Provider Nurse Practitioner Acute Care
DX: K68.9 Other disorders of retroperitoneum (principal); F10.10 Alcohol abuse, uncomplicated; K76.0 Fatty (change of) liver, not elsewhere classified; R74.01 Elevation of levels of liver transaminase levels; K76.89 Other specified diseases of liver
CPT/HCPCS: 82941; 83615; 84260

== ENCOUNTER → 2025-05-06 | Outpatient (CLI) | payer BC, SELFPAY | END | disposition home or self-care (01) | PROVIDERS: PCP Nurse Practitioner Family; Referring Provider Nurse Practitioner Acute Care; Visit Provider Nurse Practitioner Acute Care | DX: E83.110 Hereditary hemochromatosis (principal); K86.9 Disease of pancreas, unspecified; F10.10 Alcohol abuse, uncomplicated; D49.0 Neoplasm of unspecified behavior of digestive system; R19.7 Diarrhea, unspecified | CPT/HCPCS: 36415 ==

== ENCOUNTER 2025-05-13 10:53 | Outpatient (CLI) | payer BC, SELFPAY ==
--- NOTE | 2025-05-13 11:00 | PET_ITS ---
PROCEDURE: PET/CT TUMOR BASE -THIGH INIT 05/13/2025 REASON FOR EXAM: 64 y/o M with PI MODIFIER Diarrhea. Unspecified disease of pancreas. TECHNIQUE: Following the intravenous administration of radionucleotide, image acquisition on a dedicated PET/CT unit was performed at one hour post injection. A preliminary CT study encompassing the Head, neck, chest, abdomen, pelvis, and proximal thighs was performed for purposes of attenuation correction and anatomic localization. The proximal thighs were also included. RADIOPHARMACEUTICAL: 5.33 mCi gallium 68 Dotatate IV was injected into he patient. RADIATION DOSE SUMMARY: Effective Dose: Approximately 7 mSv for a standard whole-body PET scan Organ Doses: Varies by organ, with higher doses typically to the bladder, liver, and brain COMPARISON: COMPARISON FROM CT, PET OR OTHER PERTINENT EXAMS: None provided.. FINDINGS: NECK: There are no significant neck abnormalities. CHEST: Coronary artery calcification is seen. Chest wall- There are no significant chest wall abnormalities. Axilla- There are no significant axillary abnormalities. Lung parenchyma- There are no significant lung parenchyma abnormalities. Mediastinum- There are no significant hilar or mediastinal adenopathy. Pleura- There are no significant pleural abnormalities. ABDOMEN: Stomach- No significant abnormalities. Liver- No significant abnormalities. Spleen- No significant abnormalities. Pancrease- No significant abnormalities. Kidneys- No significant abnormalities. Bowel- Normal bowel activity. Spine- No significant abnormalities. PELVIS: Moderate diverticulosis involving the sigmoid and descending colon is noted. Bowel- Normal physiologic bowel activity is identified. Masses- There are no pelvic masses. Bones- Prominent degenerative changes of the spine are seen. With the use of bone window settings, there are no osteolytic or osteoblastic lesions. There are no FDG avid lesions within the visualized portion of the axial skeleton. PET/PET/CT Tumor Base -Thigh Init IMPRESSION: DOTATATE avid- No significant avid lesions. Other: 1. Coronary artery calcification. 2. Moderate sigmoid and descending colon diverticulosis is noted. 3. Prominent degenerative changes of the spine. Please note the low-dose CT scan was performed to facilitate PET image reconstr uction and anatomic localization and does not replace a diagnostic CT. Any diagnostic CT requested and performed at the time of the PET will be reported separately. Reading Location: [place] [id number]
== END 2025-05-13 23:59 | disposition home or self-care (01) ==
PROVIDERS: PCP Nurse Practitioner Family; Referring Provider Nurse Practitioner Acute Care; Visit Provider Nurse Practitioner Acute Care
DX: K86.9 Disease of pancreas, unspecified (principal); R19.7 Diarrhea, unspecified; E34.8 Other specified endocrine disorders
CPT/HCPCS: 78815; A9587